=== PATIENT | female | born 1955 | race Caucasian/White ===

== ENCOUNTER 2023-06-08 18:42 | Inpatient (IN) | payer OTHER, MEDICARE, SELFPAY ==
--- NOTE | ~2023-06-08 | CT_ITS ---
EXAMINATION: CT ABDOMEN AND PELVIS WITHOUT CONTRAST CLINICAL INFORMATION: Right flank pain COMPARISON: None available. TECHNIQUE: Multidetector volumetric imaging was performed from the superior aspect of the liver through the pubic symphysis. Sagittal and coronal reformatted images were obtained on the technologist's workstation. This CT examination was performed using dose optimization techniques as appropriate, variously including the following: *Automated exposure control *Adjustment of mA and/or kV according to patient size (this includes techniques or standardized protocols for targeted exams where dose is matched to indication/reason for exam; i.e. extremities or head) *Use of iterative reconstruction technique DLP: 097 mGy-cm FINDINGS: LUNG BASES: The visualized lung bases are unremarkable. LIVER, GALLBLADDER, AND BILIARY TREE: The liver is normal in size, shape, and attenuation. No focal hepatic lesion or biliary ductal dilatation is present. The gallbladder has been removed. PANCREAS: Unremarkable. SPLEEN: Unremarkable. ADRENAL GLANDS: By 2 cm low-attenuation left adrenal nodule 9 adenoma. No imaging follow-up recommended. Normal right adrenal KIDNEYS AND URETERS: Moderate right hydronephrosis and ureteral dilatation down to the bladder. There are right renal stones in the lower pole and right renal pelvis. No ureteral stone is seen. There is question of a tiny 1 to 2 mm stone in the bladder. There is right perinephric fat and periureteral fat stranding. This may represent backflow of urine secondary to obstruction. Differential would include infection. 2 mm stone in the lower pole left kidney. BLADDER: Not optimally distended. Question or bladder stone GASTROINTESTINAL TRACT: The small and large bowel are unremarkable. The appendix is unremarkable. Postsurgical changes from gastric sleeve. ABDOMINAL WALL: No significant hernia is appreciated. LYMPH NODES: Normal. VASCULAR: Atherosclerotic disease. PELVIC VISCERA: Uterus appears to have been removed. No pelvic mass. OSSEOUS STRUCTURES: Degenerative changes of the spine. CT/CT abdomen pelvis wo IV con IMPRESSION: 1. Moderate right hydronephrosis and ureteral dilatation down to the bladder. No ureteral stone seen. There is right perinephric fat and periureteral fat stranding. This may represent backflow of urine secondary to obstruction. Differential would include infection. Small bilateral renal stones. Question tiny 1 to 2 mm stone in the bladder. Fleischner guidelines were followed.
[2023-06-08 18:57] VITALS: BP 144/74; PULSE 79; O2SAT 98
[2023-06-08 19:11] VITALS: BP 162/68; PULSE 82; RESP 18; TEMP 37.3; O2SAT 95; BMI 48.9
--- NOTE | 2023-06-08 19:11 | ED_ITS ---
HPI - General Adult General Chief complaint: General Medical Stated complaint: LETHARGIC Time Seen by Provider: 06/08/23 19:11 Source: patient Mode of arrival: ambulatory Limitations: no limitations History of Present Illness HPI narrative: Patient history of kidney stones status post lithotripsy and stent placement x2 in last 2 months last stent was removed about 5 days ago noticed increased flank pain and not feeling good for last 2- 3 days with chills no fever feel weak poor appetite per patient urologist had difficulty in placing the stent because of stenosis? Related Data Home Medications Medication Instructions Recorded Confirmed amlodipine 10 mg tablet 10 mg PO DAILY 06/08/23 06/08/23 bupropion HCl 150 mg 24 hr tablet, 150 mg PO DAILY 06/08/23 extended release bupropion HCl 300 mg 24 hr tablet, 300 mg PO DAILY 06/08/23 06/08/23 extended release carvedilol 25 mg tablet 25 mg PO BID 06/08/23 06/08/23 dorzolamide 2 % eye drops 1 drp ophthalmic (eye) BID 06/08/23 06/08/23 fenofibrate nanocrystallized 145 145 mg PO DAILY 06/08/23 06/08/23 mg tablet ferrous gluconate 324 mg (38 mg 324 mg PO BID 06/08/23 iron) tablet latanoprost 0.005 % eye drops 1 drp ophthalmic (eye) BEDTIME 06/08/23 06/08/23 levothyroxine 50 mcg tablet mcg PO 06/08/23 lisinopril 40 mg tablet 40 mg PO DAILY 06/08/23 lisinopril 40 mg tablet 40 mg PO DAILY 06/08/23 06/08/23 loratadine 10 mg tablet 10 mg PO DAILY 06/08/23 metformin 500 mg tablet,extended 500 mg PO BID 06/08/23 06/08/23 release 24 hr montelukast 10 mg tablet 10 mg PO DAILY 06/08/23 montelukast 10 mg tablet 10 mg PO DAILY 06/08/23 06/08/23 ropinirole 1 mg tablet mg PO 06/08/23 rosuvastatin 40 mg tablet 40 mg PO DAILY 06/08/23 sertraline 100 mg tablet 200 mg PO DAILY 06/08/23 sertraline 100 mg tablet 200 mg PO DAILY 06/08/23 06/08/23 tirzepatide 7.5 mg/0.5 mL 7.5 mg subcut QWEEK 06/08/23 subcutaneous pen injector (Wilfredounmukesh) trazodone 100 mg tablet 250 mg PO BEDTIME 06/08/23 Allergies Allergy/AdvReac Type Severity Reaction Status Date / Time Sulfa (Sulfonamide Allergy Unknown HIVES Verified 06/08/23 20:25 Antibiotics) [SULFA (SULFONAMIDE ANTIBIOTICS)] Review of Systems 2 Review of Systems: Yes all other systems are reviewed and are negative PMFSH Past Medical History Medical History (Updated 06/09/23 @ 01:37 by Neptali Timmons MD) Hypothyroidism Type 2 diabetes mellitus Obstructive sleep apnea on CPAP Hyperlipidemia Essential hypertension Morbid obesity Surgical History (Updated 06/09/23 @ 00:12 by Lanie Dupont MD) Hx of cholecystectomy Social History Social History Smoked in Last 30 Days: No Use of substances other than those prescribed or required for medical reasons: No Advance Directives: No Advance Directives Information Provided: No Physical Exam ED Vital Signs: Vital Signs - 24 hr 06/08/23 19:11 06/08/23 22:13 Temperature 99.1 F 100.3 F Pulse Rate 82 78 Respiratory Rate 18 16 Blood Pressure 162/68 H 161/61 H Pulse Oximetry 95 96 Oxygen Delivery Method Room Air Room Air BMI result Body Mass Index 48.9 Appearance: Alert. Oriented X3. No acute distress. Eyes: No pallor or icterus ENT: Pharynx normal. Oral Mucosa moist Neck: Normal inspection. Neck supple. CVS: Normal heart rate and rhythm. Pulses normal. Respiratory: No respiratory distress. Equal air entry bilateral, no wheezing/rales/rhonchi Abdomen: Soft and nontender. Bowel sounds are present, no mass palpable, right CVA tenderness++ Skin: Skin warm and dry. Normal skin color. Normal skin turgor. Extremities: No lower extremity edema. No calf tenderness Neuro: Oriented X 3. No motor deficit. Medications Administered Generic Name Dose Route Start Last Admin Trade Name Freq PRN Reason Stop Dose Admin Sodium Chloride 1,000 mls @ 100 mls/hr 06/08/23 22:45 06/08/23 23:43 Ns IVCONT 100 mls/hr .Q10H ANTON Administration Sodium Chloride 3 ml 06/09/23 00:00 06/09/23 01:15 0.9 % Sodium Chloride Flush 3 Ml Syringe IVFLUSH Not Given QSHIFT ANTON Discontinued Medications Generic Name Dose Route Start Last Admin Trade Name Freq PRN Reason Stop Dose Admin Sodium Chloride 1,000 mls @ 999 mls/hr 06/08/23 19:31 06/08/23 22:04 Ns IV 06/08/23 20:31 Infused .Q1H1M ONE Infusion Ceftriaxone Sodium 1 gm/ 50 mls @ 100 mls/hr 06/08/23 19:31 06/08/23 21:36 Sodium Chloride IV 06/08/23 20:00 Infused ONCE ONE Infusion Morphine Sulfate 4 mg 06/08/23 21:16 06/08/23 21:42 Morphine Sulfate 4 Mg/Ml Cartridge IVPUSH 06/08/23 21:17 4 mg ONCE ONE Administration Protocol Ondansetron HCl 4 mg 06/08/23 21:16 06/08/23 21:37 Ondansetron Hcl 4 Mg/2 Ml Vial IVPUSH 06/08/23 21:17 4 mg ONCE ONE Administration Medical Decision Making Medical Decision Making [facility] Narrative: Patient with moderate right hydronephrosis and ureteral dilatation without any stone likely from stenosis per patient urologist had difficult time in placing the stent . Will admit patient for IV antibiotics and Urology consult for possible stent placement Differential Diagnosis Differential Diagnoses: The differential diagnosis associated with the presentation includes Kidney stones/pyelonephritis/ureteric stenosis Admission/Observation Consideration of admission/observation: Escalation of care including admission/observation considered Consult Healthcare Provider Management of the patient was discussed with: Hospitalist Lab Data [facility] Lab Attestation statement: I reviewed the patient's lab results. 06/08/23 19:59 06/08/23 19:59 Labs: Lab Results 06/08/23 06/08/23 Range/Units 19:14 19:59 WBC 8.5 (4.8-10.8) X10*3/uL RBC 4.20 (4.20-5.50) X10*6/uL Hgb 11.1 L (12.0-16.0) g/dl Hct 33.9 L (37.0-47.0) % MCV 80.7 (80.0-98.0) fL MCH 26.4 L (27.0-33.0) pg MCHC 32.7 (31.0-35.0) g/dl RDW 13.7 (11.0-16.0) % Plt Count 255 (160-400) X10*3/uL MPV 10.3 (9.4-12.3) fL Immature Gran % (Auto) 0.9 H (0.0-0.4) % Neut % (Auto) 81.0 H (45-73) % Lymph % (Auto) 7.3 L (20-40) % [place] % (Auto) 9.6 (2-11) % Eos % (Auto) 0.7 (0-4) % Baso % (Auto) 0.5 (0-2) % Lymph # (Auto) 0.6 L (1.2-4.9) X10*3/uL [place] # (Auto) 0.8 (0.1-1.2) X10*3/uL Eos # (Auto) 0.1 (0.0-0.4) X10*3/uL Baso # (Auto) 0.0 (0.0-0.2) X10*3/uL Abs Immat Gran (auto) 0.08 H (0.00-0.03) X10*3/uL Absolute Neuts (auto) 6.9 (2.0-8.3) x10*3/uL Absolute Nucleated RBC 0.000 (0.0-0.012) X10*3/uL Nucleated RBC % (auto) 0.0 (0.0-0.2) /100WBC Sodium 138 (135-145) mmol/L Potassium 3.5 (3.3-5.1) mmol/L Chloride 104 (96-108) mmol/L Carbon Dioxide 24 (22-29) mmol/L Anion Gap 14 (12-20) BUN 24 H (9-16) mg/dL Creatinine 0.93 (0.5-1.4) mg/dL Estim Creat Clear Calc 77.2 Estimated GFR 60 Random Glucose 99 (60-115) mg/dL Lactic Acid 0.7 (0.5-2.0) mmol/L Calcium 9.5 (8.4-10.2) mg/dL Total Bilirubin 0.5 (0.0-1.0) mg/dL AST 34 H (5-31) U/L ALT 39 H (0-31) U/L Alkaline Phosphatase 66 (39-117) U/L Total Protein 7.3 (6.5-8.0) g/dL Albumin 3.4 L (3.5-5.0) g/dL Urine Color Yellow Urine Appearance Turbid Urine pH 6.0 (5.0-9.0) Ur Specific [place] 1.015 (1.005-1.025) Urine Protein 300 (3+) H (Neg-Trace) mg/dL Urine Glucose (UA) Negative (Negative) mg/dL Urine Ketones Negative (Negative) mg/dL Urine Blood Large (3+) H (Negative) Urine Nitrite Negative (Negative) Ur Leukocyte Esterase Large (3+) H (Negative) Urine RBC 11-20 H (0-2) /HPF Urine WBC >50 H (0-5) /HPF Ur Squamous Epith Cells 3-5 (0-2) /HPF Urine Bacteria 4+ (None Seen) Hyaline Casts 0-2 (0-2) /LPF Independent Interpretation I performed an independent interpretation of an: CT Scan Radiology Impression Discussion of test interpretation with radiology: I have reviewed the radiologist's reading. Radiologist Impression: CT/CT abdomen pelvis wo IV con IMPRESSION: 1. Moderate right hydronephrosis and ureteral dilatation down to the bladder. No ureteral stone seen. There is right perinephric fat and periureteral fat stranding. This may represent backflow of urine secondary to obstruction. Differential would include infection. Small bilateral renal stones. Question tiny 1 to 2 mm stone in the bladder. Fleischner guidelines were followed. Discharge Plan Discharge Clinical Impression: Pyelonephritis, Hydronephrosis, right Patient Disposition: Admitted As Inpatient
[2023-06-08 19:21] LABS: Appearance Urine Turbid; Color Urine Yellow; Glucose Urine UA Negative (Negative); Leukocyte Esterase Urine Large (3+) (Negative); Nitrite Urine Negative (Negative); Specific Gravity - Urine 1.015 (1.005-1.025); UMIC TRIGGER UACC YES; Urine Blood Large (3+) (Negative); Urine Ketones Negative (Negative); Urine Protein 300 (3+) mg/dL (Neg-Trace)
[2023-06-08 19:29] LABS: Bacteria Urine 4+ (None Seen); Hyaline Casts Urine 0-2 /LPF (0-2); UACC Culture Trigger YES; WBC Urine >50 /HPF (0-5)
[2023-06-08 20:05] LABS: MANUAL DIFF FLAG NO
[2023-06-08 20:16] LABS: Lactic Acid 0.7 mmol/L (0.5-2.0)
[2023-06-08 20:21] LABS: Alanine Aminotransferase 39 U/L (0-31); Albumin Level 3.4 g/dL (3.5-5.0); Alkaline Phosphatase 66 U/L (39-117); Anion Gap 14 (12-20); Aspartate Amino Transferase 34 U/L (5-31); Bilirubin Total 0.5 mg/dL (0.0-1.0); Blood Urea Nitrogen 24 mg/dL (9-16); Calcium 9.5 mg/dL (8.4-10.2); Carbon Dioxide 24 mmol/L (22-29); Chloride 104 mmol/L (96-108); Creatinine Clr Calc Pharmacy 77.2; Estimated Glomerular Filt Rate 60; Glucose Random 99 mg/dL (60-115); Potassium 3.5 mmol/L (3.3-5.1); Sodium 138 mmol/L (135-145); Total Protein 7.3 g/dL (6.5-8.0)
[2023-06-08 20:23] LABS: Basophils Percent Auto 0.5 % (0-2); Eosinophils Absolute Auto 0.1 X10*3/uL (0.0-0.4); Eosinophils Percent Auto 0.7 % (0-4); Hematocrit 33.9 % (37.0-47.0); Hemoglobin 11.1 g/dl (12.0-16.0); Imm Gran Abs Auto 0.08 X10*3/uL (0.00-0.03); Imm Gran Pct Auto 0.9 % (0.0-0.4); Lymphocytes Absolute Auto 0.6 X10*3/uL (1.2-4.9); Lymphocytes Percent Auto 7.3 % (20-40); Mean Corpuscular HGB Conc 32.7 g/dl (31.0-35.0); Mean Corpuscular Hemoglobin 26.4 pg (27.0-33.0); Mean Corpuscular Volume 80.7 fL (80.0-98.0); Mean Platelet Volume 10.3 fL (9.4-12.3); Monocytes Absolute Auto 0.8 X10*3/uL (0.1-1.2); Monocytes Percent Auto 9.6 % (2-11); Neutrophils Absolute Auto 6.9 x10*3/uL (2.0-8.3); Platelet Count 255 X10*3/uL (160-400); Red Cell Distribution Width 13.7 % (11.0-16.0); White Blood Count 8.5 X10*3/uL (4.8-10.8)
[2023-06-08] MEDS: 0.9 % Sodium Chloride 1,000 ML 999 ML IV (20:26)
[2023-06-08] MEDS: cefTRIAXone sodium 1 GM in 0.9 % Sodium Chloride 50 ML IV (20:28)
[2023-06-08] MEDS: ondansetron HCL 4 MG/2 ML VIAL IVPUSH (21:37)
[2023-06-08] MEDS: Morphine Sulfate 4 MG/ML CARTRIDGE IVPUSH (21:42)
[2023-06-08 22:13] VITALS: BP 161/61; PULSE 78; RESP 16; TEMP 37.9; O2SAT 96
--- NOTE | 2023-06-08 23:31 | P.HPHOSP_ITS ---
History of Present Illness Date of Service: 06/08/23 Attending physician on admission: Lanie Dupont Chief Complaint: Generalized weakness Cara Chowdary is a very pleasant 68 years old woman with past medical history significant for nephrolithiasis, essential hypertension, hyperlipidemia and hypothyroidism presents to the emergency department complaining of generalized weakness, right flank pain, fevers and chills. Pain has an intensity of 8/10 and is not radiating. She also reports some pain with urination and pink urine occasionally. who was at bedside mentioned that patient has been confused at time and not eating well. Over the last 2 months the patient has been treated for nephrolithiasis with lithotripsy and stent placement at [facility]. Last stent was removed about 5 days ago. She did not report any cardiopulmonary symptoms. In the ED, she was found to have stable vital signs. Temperature is 100.3 degrees. Blood workup did not show leukocytosis or lactic acidosis. LFTs are slightly elevated. There are no significant electrolyte imbalances. Urinalysis consistent with urinary tract infection and microscopic hematuria. Abdominal pelvis CT scan showed moderate right hydronephrosis with ureteral dilation down to the bladder without ureteral stone seen. There is also right perinephritic fat and periureteral fat stranding. ED tx: Zofran 4 mg IV, morphine 4 mg IV, ceftriaxone 1 g IV. Review of Systems 2 Review of Systems: All 12 systems were reviewed and normal except as noted in HPI. [facility] Medical History (Updated 06/09/23 @ 00:12 by Lanie Dupont MD) Hypothyroidism Type 2 diabetes mellitus Obstructive sleep apnea on CPAP Hyperlipidemia Essential hypertension Morbid obesity Surgical History (Updated 06/09/23 @ 00:12 by Lanie Dupont MD) Hx of cholecystectomy Social History Smoked in Last 30 Days: No Use of substances other than those prescribed or required for medical reasons: No Advance Directives: No Advance Directives Information Provided: No Meds Allergies Allergy/AdvReac Type Severity Reaction Status Date / Time Sulfa (Sulfonamide Allergy Unknown HIVES Verified 06/08/23 20:25 Antibiotics) [SULFA (SULFONAMIDE ANTIBIOTICS)] Active Medications: Current Medications Acetaminophen (Acetaminophen 325 Mg Tablet) 975 mg PO Q6H PRN PRN Reason: pain and fever Heparin Sodium (Porcine) (Heparin Sodium,Porcine 5,000 Unit/Ml Vial) 5,000 unit SUBCUT Q8H ANTON Sodium Chloride (Ns) 1,000 mls @ 100 mls/hr IVCONT .Q10H [facility] Ceftriaxone Sodium 1 gm/ (Sodium Chloride) 50 mls @ 100 mls/hr IV DAILY [facility] Sodium Chloride (0.9 % Sodium Chloride Flush 3 Ml Syringe) 3 ml IVFLUSH QSHIFT [facility] Home Medications Medication Instructions Recorded Confirmed Last Taken Type amlodipine 10 mg tablet 10 mg PO DAILY 06/08/23 06/08/23 Unknown History bupropion HCl 150 mg 24 hr tablet, 150 mg PO DAILY 06/08/23 Unknown History extended release bupropion HCl 300 mg 24 hr tablet, 300 mg PO DAILY 06/08/23 06/08/23 Unknown History extended release carvedilol 25 mg tablet 25 mg PO BID 06/08/23 06/08/23 Unknown History dorzolamide 2 % eye drops 1 drp ophthalmic (eye) BID 06/08/23 06/08/23 Unknown History fenofibrate nanocrystallized 145 145 mg PO DAILY 06/08/23 06/08/23 Unknown History mg tablet ferrous gluconate 324 mg (38 mg 324 mg PO BID 06/08/23 Unknown History iron) tablet latanoprost 0.005 % eye drops 1 drp ophthalmic (eye) BEDTIME 06/08/23 06/08/23 Unknown History levothyroxine 50 mcg tablet mcg PO 06/08/23 Unknown History lisinopril 40 mg tablet 40 mg PO DAILY 06/08/23 Unknown History lisinopril 40 mg tablet 40 mg PO DAILY 06/08/23 06/08/23 Unknown History loratadine 10 mg tablet 10 mg PO DAILY 06/08/23 Unknown History metformin 500 mg tablet,extended 500 mg PO BID 06/08/23 06/08/23 Unknown History release 24 hr montelukast 10 mg tablet 10 mg PO DAILY 06/08/23 Unknown History montelukast 10 mg tablet 10 mg PO DAILY 06/08/23 06/08/23 Unknown History ropinirole 1 mg tablet mg PO 06/08/23 Unknown History rosuvastatin 40 mg tablet 40 mg PO DAILY 06/08/23 Unknown History sertraline 100 mg tablet 200 mg PO DAILY 06/08/23 Unknown History sertraline 100 mg tablet 200 mg PO DAILY 06/08/23 06/08/23 Unknown History tirzepatide 7.5 mg/0.5 mL 7.5 mg subcut QWEEK 06/08/23 Unknown History subcutaneous pen injector (Nadya) trazodone 100 mg tablet 250 mg PO BEDTIME 06/08/23 Unknown History Physical Exam 2 Vital Signs and Narrative: Vital Signs: Last Vital Signs Temp 100.3 F 06/08/23 22:13 Pulse 78 06/08/23 22:13 Resp 16 06/08/23 22:13 BP 161/61 H 06/08/23 22:13 Pulse Ox 96 06/08/23 22:13 O2 Del Method Room Air 06/08/23 22:13 BMI result Body Mass Index 48.9 Constitutional - Awake and Alert. Acutely ill. Looks fatigued. Febrile. Obese. HEENT - pupils equally round. No scleral icterus. Very dry oral mucosa. Heart - S1S2, RRR. Lungs- Normal lung expansion, Normal respiratory effort, No respiratory distress, CTA bilaterally Gastrointestinal - ND; +BS; right flank tenderness. No rebound or guarding - (+) CVA tenderness Extremities - no calf tenderness bilaterally, no swelling Musculoskeletal - Normal inspection, normal ROM Skin - Warm/Dry Neurological - Alert & oriented x3. No focal weakness grossly noted. Normal speech. Normal behavior. Psychological - Appropriate affect Results Labs 06/08/23 19:59 06/08/23 19:59 Labs: Laboratory Results - last 24 hr 06/08/23 06/08/23 19:14 19:59 MCV 80.7 MCH 26.4 L MCHC 32.7 RDW 13.7 Plt Count 255 MPV 10.3 Immature Gran % (Auto) 0.9 H Neut % (Auto) 81.0 H Lymph % (Auto) 7.3 L [place] % (Auto) 9.6 Eos % (Auto) 0.7 Baso % (Auto) 0.5 Lymph # (Auto) 0.6 L [place] # (Auto) 0.8 Eos # (Auto) 0.1 Baso # (Auto) 0.0 Abs Immat Gran (auto) 0.08 H Absolute Neuts (auto) 6.9 Absolute Nucleated RBC 0.000 Nucleated RBC % (auto) 0.0 Anion Gap 14 Estim Creat Clear Calc 77.2 Estimated GFR 60 Random Glucose 99 Lactic Acid 0.7 Calcium 9.5 Total Bilirubin 0.5 AST 34 H ALT 39 H Alkaline Phosphatase 66 Total Protein 7.3 Albumin 3.4 L Urine Color Yellow Urine Appearance Turbid Urine pH 6.0 Ur Specific [place] 1.015 Urine Protein 300 (3+) H Urine Glucose (UA) Negative Urine Ketones Negative Urine Blood Large (3+) H Urine Nitrite Negative Ur Leukocyte Esterase Large (3+) H Urine RBC 11-20 H Urine WBC >50 H Ur Squamous Epith Cells 3-5 Urine Bacteria 4+ Hyaline Casts 0-2 Imaging Radiologist's Impressions: Impressions Abdomen/Pelvis CT 06/08/23 20:15 IMPRESSION: 1. Moderate right hydronephrosis and ureteral dilatation down to the bladder. No ureteral stone seen. There is right perinephric fat and periureteral fat stranding. This may represent backflow of urine secondary to obstruction. Differential would include infection. Small bilateral renal stones. Question tiny 1 to 2 mm stone in the bladder. Fleischner guidelines were followed. Assessment and Plan (1) Pyelonephritis: Status: Acute (2) Hydronephrosis, right: Status: Acute (3) Elevated liver transaminase level: Status: Acute Plan Cara Chowdary is a very pleasant 68 years old woman with past medical history significant for nephrolithiasis admitted with: * Right pyelonephritis associated with moderate hydronephrosis. s/p recent right ureteral stent removal. Admit to hospitalist service. Start IV fluids. Continue empiric IV antibiotic therapy with ceftriaxone. Blood and urine culture obtained -will follow results. Urology consult. * Type 2 diabetes mellitus. Hold metformin. Blood glucose monitoring before meals at bedtime. Blood glucose control with insulin sliding scale for now. * Essential hypertension. Continue amlodipine, carvedilol and lisinopril. * Hypothyroidism. Continue levothyroxine. * Hyperlipidemia. Continue statin. * Obesity. BMI 48.9 kg/m2. Weight loss. * Obstructive sleep apnea. Nocturnal CPAP. * Mildly elevated transaminase ? Statin-induced. Continue to monitor for now. DVT prophylaxis: Heparin subcut Code status: Full Patient will need hospitalization for at least 2 midnight for right pyelonephritis w/ right hydronephrosis treatment with IV fluids and IV antibiotics as well as evaluation by urology service. Quality Stroke Does the patient have a stroke diagnosis?: No VTE Prior VTE?: No VTE Risk Level:: Medical - moderate - high VTE Device Contraindication: N/A - Device Ordered VTE Drug Contraindication: N/A - Med Ordered
[2023-06-08] MEDS: 0.9 % Sodium Chloride 1,000 ML 100 ML IVCONT (23:43)
--- NOTE | 2023-06-08 23:45 | PC.NURSE ---
assumed care of pt at 2315. PT alert and oriented and tear ful. PT sts other pt screaming is distressing to her. recommended pt to utlize TV to help in drowning out the sound. PT denies any pain at this time. Medications administered as per JUN. Plan of care ongoing.
[2023-06-09] VITALS (7 sets, daily range): BP systolic 121–182; BP diastolic 44–74; PULSE 58–71; RESP 16–18; TEMP 36.6–37.2; O2SAT 92–98
--- NOTE | 2023-06-09 00:05 | PC.RT ---
Pt refused cpap
--- NOTE | 2023-06-09 05:58 | PC.NURSE ---
PT IV line positional and causing pump to continuously go off. Place new IV line in left forearm.
[2023-06-09] MEDS: Levothyroxine Sodium 50 MCG TABLET PO (06:02)
[2023-06-09] MEDS: Acetaminophen 325 MG TABLET 975 MG PO ×2 (06:03→23:04)
[2023-06-09 06:09] LABS: MANUAL DIFF FLAG NO
[2023-06-09 06:16] LABS: Basophils Percent Auto 0.5 % (0-2); Eosinophils Absolute Auto 0.1 X10*3/uL (0.0-0.4); Eosinophils Percent Auto 1.1 % (0-4); Hematocrit 35.7 % (37.0-47.0); Hemoglobin 11.4 g/dl (12.0-16.0); Imm Gran Abs Auto 0.14 X10*3/uL (0.00-0.03); Imm Gran Pct Auto 1.6 % (0.0-0.4); Lymphocytes Percent Auto 11.1 % (20-40); Mean Corpuscular HGB Conc 31.9 g/dl (31.0-35.0); Mean Corpuscular Hemoglobin 26.3 pg (27.0-33.0); Mean Corpuscular Volume 82.4 fL (80.0-98.0); Mean Platelet Volume 10.5 fL (9.4-12.3); Monocytes Percent Auto 11.1 % (2-11); Neutrophils Absolute Auto 6.4 x10*3/uL (2.0-8.3); Neutrophils Percent Auto 74.6 % (45-73); Platelet Count 255 X10*3/uL (160-400); Red Blood Count 4.33 X10*6/uL (4.20-5.50); Red Cell Distribution Width 13.7 % (11.0-16.0); White Blood Count 8.6 X10*3/uL (4.8-10.8)
[2023-06-09 06:28] LABS: Alanine Aminotransferase 42 U/L (0-31); Albumin Level 3.3 g/dL (3.5-5.0); Alkaline Phosphatase 72 U/L (39-117); Anion Gap 16 (12-20); Aspartate Amino Transferase 39 U/L (5-31); Bilirubin Total 0.3 mg/dL (0.0-1.0); Blood Urea Nitrogen 22 mg/dL (9-16); Calcium 9.4 mg/dL (8.4-10.2); Carbon Dioxide 23 mmol/L (22-29); Chloride 106 mmol/L (96-108); Creatinine Clr Calc Pharmacy 80.7; Estimated Glomerular Filt Rate > 60; Glucose Random 99 mg/dL (60-115); Magnesium 1.8 mg/dL (1.6-2.6); Potassium 3.9 mmol/L (3.3-5.1); Sodium 141 mmol/L (135-145); Total Protein 7.3 g/dL (6.5-8.0)
[2023-06-09 07:04] LABS: Glucose, Whole Blood 95 mg/dL (60-115)
[2023-06-09] MEDS: Sertraline HCL 100 MG TABLET 200 MG PO (08:10)
[2023-06-09] MEDS: buPROPion HCl XL 300 MG TAB.ER.24H PO (08:10)
[2023-06-09] MEDS: amLODIPine Besylate 10 MG TABLET PO (08:10)
[2023-06-09] MEDS: Heparin Sodium,Porcine 5,000 UNIT/ML VIAL 5000 UNIT SUBCUT (08:11)
[2023-06-09] MEDS: cefTRIAXone sodium 1 GM in 0.9 % Sodium Chloride 50 ML IV (08:11)
[2023-06-09] MEDS: carvediloL 25 MG TABLET PO ×2 (08:15→22:54)
[2023-06-09] MEDS: 0.9 % Sodium Chloride 1,000 ML 100 ML IVCONT ×2 (08:17→23:04)
[2023-06-09] MEDS: 0.9 % Sodium Chloride Flush 3 ML SYRINGE IVFLUSH ×2 (08:22→22:53)
--- NOTE | 2023-06-09 08:49 | MHC.CM.PN ---
CM met with Patient in the ED, at bedside. Patient lives in a house with her Partner/HCP/Susan and she uses a walker to assist with mobility. Home/self care is the goal and CM has initiated and will follow for dc planning. PCP is Dr. Marine Saucedo.
[2023-06-09] MEDS: Fenofibrate 160 MG TABLET PO (09:06)
--- NOTE | 2023-06-09 10:20 | PC.NURSE ---
alert and oriented, respirations even and unlabored. medicated per the MAR, able to stand and pivot self independently to commode. hospital bed provided for patient's comfort. IV fluids continue to infuse, call martinez remains within reach.
--- NOTE | 2023-06-09 10:52 | PHA.MEDREC ---
Pharmacy Consult ? Medication Reconciliation Pharmacy has completed the medication reconciliation. Pharmacy has completed med rec using claim history. Pt is poor historian and unable to provide any information about her home meds other than she takes 2 eye drops and lutein.
[2023-06-09 13:08] LABS: Glucose, Whole Blood 86 mg/dL (60-115)
[2023-06-09] MEDS: Atorvastatin Calcium 80 MG TABLET PO (15:19)
[2023-06-09] MEDS: rOPINIRole HCL 1 MG TABLET PO (15:19)
[2023-06-09 18:15] LABS: Glucose, Whole Blood 89 mg/dL (60-115)
[2023-06-09 21:45] LABS: Glucose, Whole Blood 94 mg/dL (60-115)
[2023-06-09] MEDS: rOPINIRole HCL 2 MG TABLET PO (22:54)
[2023-06-09] MEDS: traZODone HCL 50 MG TABLET 250 MG PO (22:54)
[2023-06-09] MEDS: Montelukast Sodium 10 MG TABLET PO (22:55)
[2023-06-09] MEDS: Gabapentin 300 MG CAPSULE 900 MG PO (22:55)
[2023-06-10] MEDS: Heparin Sodium,Porcine 5,000 UNIT/ML VIAL 5000 UNIT SUBCUT ×3 (02:10→16:04)
[2023-06-10 03:14] VITALS: BP 151/67; PULSE 55; RESP 18; TEMP 36; O2SAT 92
[2023-06-10] MEDS: Levothyroxine Sodium 50 MCG TABLET PO (06:08)
--- NOTE | 2023-06-10 06:12 | PC.NURSE ---
Addendum entered by Angeline Kraus RN 06/10/23 07:05: Patient refused HS cpap, stated it interferes with getting up to the commode urgently for incontinence. Spo2 maintained on RA. Patient requiring education on safety measures, refused in-room camera and full skin assessment; pt very modest. Bed alarm on and other high falls prevention meaures in place. Original Note: Assumed care of patient at 19:00. Patient refusing previously ordered IV fluids in the evening; later agreeable and fluids re-started, still infusing at this time 06:00 hour. Patient NPO since midnight per MD order.
[2023-06-10 07:34] VITALS: BP 133/96; PULSE 56; RESP 20; TEMP 36.2; O2SAT 94
[2023-06-10 07:52] LABS: Glucose, Whole Blood 75 mg/dL (60-115)
--- NOTE | 2023-06-10 08:06 | HO.PM.IMPN ---
Subjective Subjective Date of Service: 06/09/23 Interval History: pyelonephritis Review of Systems has right flank pain no fever or chills Physical Exam Vital Signs: Vital Signs: Last Vital Signs BMI result Body Mass Index vitals 06/09 reviewed seems fine Appearance: Alert.? Oriented X3.? cvs: rrr, [id number] . res: clear to auscultation ,no rhonchii or wheezing abd: no rebound or guarding ,right flank pain, bs present. ext pulses present , no cyanosis . neuro: axo3 , nonfocal. Objective Data Active Medications Acetaminophen (Acetaminophen 325 Mg Tablet) 975 mg PO Q6H PRN PRN Reason: pain and fever Last Admin: 06/09/23 23:04 Dose: 975 mg Documented By: ARA Amlodipine Besylate (Amlodipine Besylate 10 Mg Tablet) 10 mg PO DAILY [facility]; Protocol Last Admin: 06/09/23 08:10 Dose: 10 mg Documented By: ELPIDIO Atorvastatin Calcium (Atorvastatin Calcium 80 Mg Tablet) 80 mg PO DAILY [facility] Last Admin: 06/09/23 15:19 Dose: 80 mg Documented By: ELPIDIO Bupropion HCl (Bupropion Hcl Xl 300 Mg Tab.Er.24h) 300 mg PO DAILY [facility] Last Admin: 06/09/23 08:10 Dose: 300 mg Documented By: ELPIDIO Bupropion HCl (Bupropion Hcl Xl 150 Mg Tab.Er.24h) 150 mg PO DAILY [facility] Carvedilol (Carvedilol 25 Mg Tablet) 25 mg PO BID [facility]; Protocol Last Admin: 06/09/23 22:54 Dose: 25 mg Documented By: ARA Dextrose (Dextrose 50 % 25 Gm/50 Ml Syringe) 25 gm IVPUSH Q15M PRN; Protocol PRN Reason: per Hypoglycemia Standing Ord. Dorzolamide HCl (Dorzolamide Hcl 2 % Ophth Danielle 10 Ml Drpbtl) 1 drop EYE-BOTH BID [facility] Last Admin: 06/09/23 22:59 Dose: Not Given Documented By: ARA Non-Admin Reason: med not available Fenofibrate (Fenofibrate 160 Mg Tablet) 160 mg PO DAILY [facility] Last Admin: 06/09/23 09:06 Dose: 160 mg Documented By: ELPIDIO Ferrous Sulfate (Ferrous Sulfate 324 Mg Tablet.Dr) 324 mg PO DAILY [facility] Gabapentin (Gabapentin 300 Mg Capsule) 900 mg PO BEDTIME [facility] Last Admin: 06/09/23 22:55 Dose: 900 mg Documented By: ARA Glucose (Glucose Gel 15 Gm Gel..Gram.) 15 gm PO Q15M PRN; Protocol PRN Reason: per Hypoglycemia Standing Ord. Heparin Sodium (Porcine) (Heparin Sodium,Porcine 5,000 Unit/Ml Vial) 5,000 unit SUBCUT Q8H [facility] Last Admin: 06/10/23 02:10 Dose: 5,000 unit Documented By: ARA Sodium Chloride (Ns) 1,000 mls @ 100 mls/hr IVCONT .Q10H [facility] Last Admin: 06/09/23 23:04 Dose: 100 mls/hr Documented By: ARA Ceftriaxone Sodium 1 gm/ (Sodium Chloride) 50 mls @ 100 mls/hr IV DAILY [facility] Last Infusion: 06/09/23 09:05 Dose: Infused Documented By: ELPIDIO Insulin Human Lispro (Insulin Lispro 100 Unit/Ml 3 Ml Vial) 0 unit SUBCUT QIDACHS [facility]; Protocol Last Admin: 06/10/23 07:50 Dose: Not Given Documented By: OBINNA Non-Admin Reason: No Insulin Coverage Latanoprost (Latanoprost 0.005 % Ophth Danielle 2.5 Ml Drops) 1 drop EYE-BOTH BEDTIME [facility] Last Admin: 06/09/23 22:59 Dose: Not Given Documented By: ARA Non-Admin Reason: med not available Levothyroxine Sodium (Levothyroxine Sodium 50 Mcg Tablet) 50 mcg PO DAILY@0600 [facility] Last Admin: 06/10/23 06:08 Dose: 50 mcg Documented By: ARA Loratadine (Loratadine 10 Mg Tablet) 10 mg PO DAILY [facility] Montelukast Sodium (Montelukast Sodium 10 Mg Tablet) 10 mg PO BEDTIME [facility] Last Admin: 06/09/23 22:55 Dose: 10 mg Documented By: ARA Non-Formulary Medication (Lutein) 10 mg PO DAILY [facility] Ropinirole HCl (Ropinirole Hcl 1 Mg Tablet) 1 mg PO BID@0900,1500 [facility] Last Admin: 06/09/23 15:19 Dose: 1 mg Documented By: ELPIDIO Ropinirole HCl (Ropinirole Hcl 2 Mg Tablet) 2 mg PO BEDTIME [facility] Last Admin: 06/09/23 22:54 Dose: 2 mg Documented By: AAR Sertraline HCl (Sertraline Hcl 100 Mg Tablet) 200 mg PO DAILY [facility] Last Admin: 06/09/23 08:10 Dose: 200 mg Documented By: ELPIDIO Sodium Chloride (0.9 % Sodium Chloride Flush 3 Ml Syringe) 3 ml IVFLUSH QSHIFT [facility] Last Admin: 06/09/23 22:53 Dose: 3 ml Documented By: ARA Trazodone HCl (Trazodone Hcl 50 Mg Tablet) 250 mg PO BEDTIME [facility] Last Admin: 06/09/23 22:54 Dose: 250 mg Documented By: ARA Labs 06/09/23 05:48 06/09/23 05:48 Labs: Laboratory Results - last 24 hr 06/09/23 06/09/23 06/09/23 12:58 18:10 20:34 POC Glucose 86 89 94 06/10/23 07:37 POC Glucose 75 Microbiology Microbiology Results: Microbiology 06/08/23 20:04 Blood Culture - Preliminary Blood - Venous No growth after 24 hours. 06/08/23 19:59 Blood Culture - Preliminary Blood - Venous No growth after 24 hours. 06/08/23 Unknown Urine Culture - Preliminary Urine clean catch - Urine hunter top Culture in progress. Assessment and Plan (1) Hydronephrosis, right: Status: Acute (2) Pyelonephritis: Status: Acute Plan 68 years old woman with past medical history significant for nephrolithiasis admitted with: Right pyelonephritis associated with moderate hydronephrosis. s/p recent right ureteral stent removal. continue IV fluids, IV antibiotic therapy with ceftriaxone. Blood and urine culture obtained -will follow results. Urology consult-possible procedure in 06/10 ,keep npo midnight. Type 2 diabetes mellitus. Hold metformin. Blood glucose monitoring before meals at bedtime. Blood glucose control with insulin sliding scale for now. Essential hypertension. Continue amlodipine, carvedilol and lisinopril. Hypothyroidism. Continue levothyroxine. Hyperlipidemia. Continue statin. morbid Obesity. encouraged to lose weight,cut down calories. Obstructive sleep apnea. Nocturnal CPAP. Mildly elevated transaminase ? Statin-induced. Continue to monitor for now. DVT prophylaxis: Heparin s/c. ongoing hospitisation need :Right pyelonephritis associated with moderate hydronephrosis-need iv hydration,antibiotics and possible urological procedure for hydronephrosis and possible uteral stone ,expert consultation. Quality Stroke Does the patient have a stroke diagnosis?: No VTE Prior VTE?: No VTE Risk Level:: Medical - moderate - high VTE Device Contraindication: N/A - Device Ordered VTE Drug Contraindication: N/A - Med Ordered
[2023-06-10] MEDS: Ferrous Sulfate 324 MG TABLET.DR PO (08:39)
[2023-06-10] MEDS: Atorvastatin Calcium 80 MG TABLET PO (08:39)
[2023-06-10] MEDS: Sertraline HCL 100 MG TABLET 200 MG PO (08:39)
[2023-06-10] MEDS: Loratadine 10 MG TABLET PO (08:39)
[2023-06-10] MEDS: carvediloL 25 MG TABLET PO ×2 (08:39→22:30)
[2023-06-10] MEDS: rOPINIRole HCL 1 MG TABLET PO ×3 (08:39→22:30)
[2023-06-10] MEDS: buPROPion HCl XL 300 MG TAB.ER.24H PO (08:39)
[2023-06-10] MEDS: buPROPion HCl XL 150 MG TAB.ER.24H PO (08:39)
[2023-06-10] MEDS: Fenofibrate 160 MG TABLET PO (08:39)
[2023-06-10] MEDS: 0.9 % Sodium Chloride 1,000 ML 100 ML IVCONT (08:40)
[2023-06-10] MEDS: cefTRIAXone sodium 1 GM in 0.9 % Sodium Chloride 50 ML IV (08:40)
[2023-06-10] MEDS: amLODIPine Besylate 10 MG TABLET PO (08:40)
[2023-06-10] MEDS: 0.9 % Sodium Chloride Flush 3 ML SYRINGE IVFLUSH ×3 (08:41→21:56)
[2023-06-10] MEDS: Acetaminophen 325 MG TABLET 975 MG PO ×2 (08:45→16:03)
[2023-06-10 09:02] LABS: MANUAL DIFF FLAG NO
[2023-06-10 09:14] LABS: Basophils Percent Auto 0.6 % (0-2); Eosinophils Absolute Auto 0.3 X10*3/uL (0.0-0.4); Eosinophils Percent Auto 3.7 % (0-4); Hematocrit 35.2 % (37.0-47.0); Hemoglobin 11.3 g/dl (12.0-16.0); Imm Gran Abs Auto 0.16 X10*3/uL (0.00-0.03); Imm Gran Pct Auto 2.4 % (0.0-0.4); Lymphocytes Absolute Auto 0.8 X10*3/uL (1.2-4.9); Lymphocytes Percent Auto 11.8 % (20-40); Mean Corpuscular HGB Conc 32.1 g/dl (31.0-35.0); Mean Corpuscular Hemoglobin 26.3 pg (27.0-33.0); Mean Corpuscular Volume 81.9 fL (80.0-98.0); Mean Platelet Volume 10.8 fL (9.4-12.3); Monocytes Absolute Auto 0.6 X10*3/uL (0.1-1.2); Monocytes Percent Auto 9.1 % (2-11); Neutrophils Absolute Auto 4.9 x10*3/uL (2.0-8.3); Neutrophils Percent Auto 72.4 % (45-73); Platelet Count 305 X10*3/uL (160-400); Red Cell Distribution Width 14.1 % (11.0-16.0); White Blood Count 6.7 X10*3/uL (4.8-10.8)
[2023-06-10 09:30] LABS: Alanine Aminotransferase 51 U/L (0-31); Albumin Level 3.2 g/dL (3.5-5.0); Alkaline Phosphatase 73 U/L (39-117); Anion Gap 16 (12-20); Aspartate Amino Transferase 48 U/L (5-31); Bilirubin Total 0.3 mg/dL (0.0-1.0); Blood Urea Nitrogen 15 mg/dL (9-16); Calcium 9.6 mg/dL (8.4-10.2); Carbon Dioxide 24 mmol/L (22-29); Chloride 110 mmol/L (96-108); Creatinine Clr Calc Pharmacy 99.8; Estimated Glomerular Filt Rate > 60; Glucose Random 106 mg/dL (60-115); Potassium 3.7 mmol/L (3.3-5.1); Sodium 146 mmol/L (135-145); Total Protein 7.2 g/dL (6.5-8.0)
[2023-06-10 09:46] LABS: Thyroid Stimulating Hormone 1.09 uIU/mL (0.32-4.0)
[2023-06-10 11:45] VITALS: BP 132/62; PULSE 52; RESP 20; TEMP 36.1; O2SAT 93
[2023-06-10 11:51] LABS: Glucose, Whole Blood 83 mg/dL (60-115)
--- NOTE | 2023-06-10 12:17 | MHC.CM.PN ---
EMR reviewed and per MD rounds, pt is not medically cleared for D/C due to management of hydronephrosis and pending urolgical stent placement today. CM will continue to follow.
--- NOTE | 2023-06-10 14:32 | MHC.CM.PN ---
EMR reviewed and per MD rounds, pt is not medically cleared for D/C due to management of hydronephrosis and pending urological stent placement today. CM will continue to follow.
--- NOTE | 2023-06-10 15:04 | HO.PM.IMPN ---
Subjective Subjective Date of Service: 06/10/23 Interval History: pyelonephritis Review of Systems right flank pain no fever or chills Physical Exam Vital Signs: Vital Signs: Last Vital Signs Temp 97.0 F 06/10/23 11:45 Pulse 52 06/10/23 11:45 Resp 20 06/10/23 11:45 BP 132/62 06/10/23 11:45 Pulse Ox 93 06/10/23 11:45 O2 Del Method Room Air 06/10/23 11:45 BMI result Body Mass Index 48.9 Appearance: Alert.? Oriented X3.? cvs: rrr, [id number] . res: clear to auscultation ,no rhonchii or wheezing abd: no rebound or guarding ,right flank pain, bs present. ext pulses present , no cyanosis . neuro: axo3 , nonfocal. Objective Data Active Medications Acetaminophen (Acetaminophen 325 Mg Tablet) 975 mg PO Q6H PRN PRN Reason: pain and fever Last Admin: 06/10/23 08:45 Dose: 975 mg Documented By: OBINNA Amlodipine Besylate (Amlodipine Besylate 10 Mg Tablet) 10 mg PO DAILY [facility]; Protocol Last Admin: 06/10/23 08:40 Dose: 10 mg Documented By: OBINNA Atorvastatin Calcium (Atorvastatin Calcium 80 Mg Tablet) 80 mg PO DAILY [facility] Last Admin: 06/10/23 08:39 Dose: 80 mg Documented By: OBINNA Bupropion HCl (Bupropion Hcl Xl 300 Mg Tab.Er.24h) 300 mg PO DAILY [facility] Last Admin: 06/10/23 08:39 Dose: 300 mg Documented By: OBINNA Bupropion HCl (Bupropion Hcl Xl 150 Mg Tab.Er.24h) 150 mg PO DAILY [facility] Last Admin: 06/10/23 08:39 Dose: 150 mg Documented By: OBINNA Carvedilol (Carvedilol 25 Mg Tablet) 25 mg PO BID [facility]; Protocol Last Admin: 06/10/23 08:39 Dose: 25 mg Documented By: OBINNA Dextrose (Dextrose 50 % 25 Gm/50 Ml Syringe) 25 gm IVPUSH Q15M PRN; Protocol PRN Reason: per Hypoglycemia Standing Ord. Dorzolamide HCl (Dorzolamide Hcl 2 % Ophth Danielle 10 Ml Drpbtl) 1 drop EYE-BOTH BID [facility] Last Admin: 06/10/23 08:41 Dose: Not Given Documented By: OBINNA Non-Admin Reason: Med Not Available Fenofibrate (Fenofibrate 160 Mg Tablet) 160 mg PO DAILY [facility] Last Admin: 06/10/23 08:39 Dose: 160 mg Documented By: OBINNA Ferrous Sulfate (Ferrous Sulfate 324 Mg Tablet.Dr) 324 mg PO DAILY [facility] Last Admin: 06/10/23 08:39 Dose: 324 mg Documented By: OBINNA Gabapentin (Gabapentin 300 Mg Capsule) 900 mg PO BEDTIME [facility] Last Admin: 06/09/23 22:55 Dose: 900 mg Documented By: ARA Glucose (Glucose Gel 15 Gm Gel..Gram.) 15 gm PO Q15M PRN; Protocol PRN Reason: per Hypoglycemia Standing Ord. Heparin Sodium (Porcine) (Heparin Sodium,Porcine 5,000 Unit/Ml Vial) 5,000 unit SUBCUT Q8H [facility] Last Admin: 06/10/23 08:39 Dose: 5,000 unit Documented By: OBINNA Sodium Chloride (Ns) 1,000 mls @ 100 mls/hr IVCONT .Q10H [facility] Last Admin: 06/10/23 15:01 Dose: Not Given Documented By: OBINNA Non-Admin Reason: Physician Held Med Ceftriaxone Sodium 1 gm/ (Sodium Chloride) 50 mls @ 100 mls/hr IV DAILY [facility] Last Infusion: 06/10/23 09:23 Dose: Infused Documented By: OBINNA Insulin Human Lispro (Insulin Lispro 100 Unit/Ml 3 Ml Vial) 0 unit SUBCUT QIDACHS [facility]; Protocol Last Admin: 06/10/23 11:49 Dose: Not Given Documented By: OBINNA Non-Admin Reason: No Insulin Coverage Latanoprost (Latanoprost 0.005 % Ophth Danielle 2.5 Ml Drops) 1 drop EYE-BOTH BEDTIME [facility] Last Admin: 06/09/23 22:59 Dose: Not Given Documented By: ARA Non-Admin Reason: med not available Levothyroxine Sodium (Levothyroxine Sodium 50 Mcg Tablet) 50 mcg PO DAILY@0600 [facility] Last Admin: 06/10/23 06:08 Dose: 50 mcg Documented By: ARA Loratadine (Loratadine 10 Mg Tablet) 10 mg PO DAILY [facility] Last Admin: 06/10/23 08:39 Dose: 10 mg Documented By: OBINNA Montelukast Sodium (Montelukast Sodium 10 Mg Tablet) 10 mg PO BEDTIME [facility] Last Admin: 06/09/23 22:55 Dose: 10 mg Documented By: ARA Non-Formulary Medication (Lutein) 10 mg PO DAILY [facility] Ropinirole HCl (Ropinirole Hcl 1 Mg Tablet) 1 mg PO BID@0900,1500 [facility] Last Admin: 06/10/23 08:39 Dose: 1 mg Documented By: OBINNA Ropinirole HCl (Ropinirole Hcl 2 Mg Tablet) 2 mg PO BEDTIME [facility] Last Admin: 06/09/23 22:54 Dose: 2 mg Documented By: ARA Sertraline HCl (Sertraline Hcl 100 Mg Tablet) 200 mg PO DAILY [facility] Last Admin: 06/10/23 08:39 Dose: 200 mg Documented By: OBINNA Sodium Chloride (0.9 % Sodium Chloride Flush 3 Ml Syringe) 3 ml IVFLUSH QSHIFT [facility] Last Admin: 06/10/23 08:41 Dose: 3 ml Documented By: OBINNA Trazodone HCl (Trazodone Hcl 50 Mg Tablet) 250 mg PO BEDTIME [facility] Last Admin: 06/09/23 22:54 Dose: 250 mg Documented By: ARA Labs 06/10/23 08:31 06/10/23 08:31 Labs: Laboratory Results - last 24 hr 06/09/23 06/09/23 06/10/23 18:10 20:34 07:37 MCV MCH MCHC RDW Plt Count MPV Immature Gran % (Auto) Neut % (Auto) Lymph % (Auto) [place] % (Auto) Eos % (Auto) Baso % (Auto) Lymph # (Auto) [place] # (Auto) Eos # (Auto) Baso # (Auto) Abs Immat Gran (auto) Absolute Neuts (auto) Absolute Nucleated RBC Nucleated RBC % (auto) Anion Gap Estim Creat Clear Calc Estimated GFR POC Glucose 89 94 75 Random Glucose Calcium Total Bilirubin AST ALT Alkaline Phosphatase Total Protein Albumin TSH 06/10/23 06/10/23 08:31 11:47 MCV 81.9 MCH 26.3 L MCHC 32.1 RDW 14.1 Plt Count 305 MPV 10.8 Immature Gran % (Auto) 2.4 H Neut % (Auto) 72.4 Lymph % (Auto) 11.8 L [place] % (Auto) 9.1 Eos % (Auto) 3.7 Baso % (Auto) 0.6 Lymph # (Auto) 0.8 L [place] # (Auto) 0.6 Eos # (Auto) 0.3 Baso # (Auto) 0.0 Abs Immat Gran (auto) 0.16 H Absolute Neuts (auto) 4.9 Absolute Nucleated RBC 0.000 Nucleated RBC % (auto) 0.0 Anion Gap 16 Estim Creat Clear Calc 99.8 Estimated GFR > 60 POC Glucose 83 Random Glucose 106 Calcium 9.6 Total Bilirubin 0.3 AST 48 H ALT 51 H Alkaline Phosphatase 73 Total Protein 7.2 Albumin 3.2 L TSH 1.09 Microbiology Microbiology Results: Microbiology 06/08/23 Unknown Urine Culture - Final Urine clean catch - Urine hunter top 06/08/23 20:04 Blood Culture - Preliminary Blood - Venous No growth after 24 hours. 06/08/23 19:59 Blood Culture - Preliminary Blood - Venous No growth after 24 hours. Assessment and Plan (1) Hydronephrosis, right: Status: Acute (2) Pyelonephritis: Status: Acute Plan 68 years old woman with past medical history significant for nephrolithiasis admitted with: Right pyelonephritis associated with moderate hydronephrosis. s/p recent right ureteral stent removal. continue IV fluids, IV antibiotic therapy with ceftriaxone. Blood and urine culture obtained -will follow results. Urology consult-possible procedure in 06/10 ,keep npo midnight. Type 2 diabetes mellitus. Hold metformin. Blood glucose monitoring before meals at bedtime. Blood glucose control with insulin sliding scale for now. Essential hypertension. Continue amlodipine, carvedilol and lisinopril. Hypothyroidism. Continue levothyroxine. Hyperlipidemia. Continue statin. morbid Obesity. encouraged to lose weight,cut down calories. Obstructive sleep apnea. Nocturnal CPAP. Mildly elevated transaminase ? Statin-induced. Continue to monitor for now. DVT prophylaxis: Heparin s/c. ongoing hospitisation need :Right pyelonephritis associated with moderate hydronephrosis-need iv hydration,antibiotics and possible urological procedure for hydronephrosis and possible uteral stone ,expert consultation. Quality Stroke Does the patient have a stroke diagnosis?: No VTE Prior VTE?: No VTE Risk Level:: Medical - moderate - high VTE Device Contraindication: N/A - Device Ordered VTE Drug Contraindication: N/A - Med Ordered
--- NOTE | 2023-06-10 15:13 | P.CDIM_ITS ---
PROVIDER RESPONSE TEXT: To clarify, the appropriate diagnosis supported by the clinical indicators: Acute QUERY TEXT: PHYSICIAN'S DOCUMENTATION REQUEST Date of Query: 06/10/2023 11:57 AM EST Patient Name: Cara Chowdary Admit Date: 06/09/2023 Dear Sal Hernandez, A review of the medical record indicates additional documentation may be needed. Please review below and update the documentation accordingly. Clinical Indicators: Per Hospitalist Progress Note 06/10/23: Right pyelonephritis associated with moderate hydronephrosis. s/p recent right ureteral stent removal . continue IV fluids, IV antibiotic therapy with ceftriaxone Clarify which of the following accurately represents the acuity of the Pyelonephritis. Possible options might include: Acute Acute on chronic Compensated Chronic stable condition Remission Other (explain) Clinically unable to determine (explain) Thank you, Yenni Maier RN Use of terms such as suspected, likely, concern for, or probable (associated with a specific diagnosi s that is being evaluated, monitored, or treated as if it exists) are acceptable and can be coded in the inpatient se tting, when documented at the time of discharge. Please use your independent medical judgment in providing your response. THIS QUERY IS PART OF THE PERMANENT MEDICAL RECORD
[2023-06-10 15:47] VITALS: BP 146/68; PULSE 57; RESP 18; TEMP 36.2; O2SAT 93
[2023-06-10 16:25] LABS: Glucose, Whole Blood 104 mg/dL (60-115)
[2023-06-10 19:16] VITALS: BP 148/61; PULSE 58; RESP 18; TEMP 36.3; O2SAT 94
--- NOTE | 2023-06-10 21:03 | PC.RT ---
Pt refusing CPAP, states she is all set
[2023-06-10 21:19] LABS: Glucose, Whole Blood 144 mg/dL (60-115)
[2023-06-10] MEDS: traZODone HCL 50 MG TABLET 250 MG PO (21:54)
[2023-06-10] MEDS: Gabapentin 300 MG CAPSULE 900 MG PO (21:54)
[2023-06-10] MEDS: Montelukast Sodium 10 MG TABLET PO (21:55)
[2023-06-10] MEDS: rOPINIRole HCL 2 MG TABLET PO (22:32)
[2023-06-10 23:39] VITALS: BP 143/63; PULSE 57; RESP 16; TEMP 36.3; O2SAT 93
[2023-06-11] MEDS: Heparin Sodium,Porcine 5,000 UNIT/ML VIAL 5000 UNIT SUBCUT ×2 (02:33→09:07)
[2023-06-11 03:45] VITALS: BP 149/67; PULSE 58; RESP 16; TEMP 36.2; O2SAT 94
[2023-06-11] MEDS: Levothyroxine Sodium 50 MCG TABLET PO (05:39)
[2023-06-11 07:26] LABS: Glucose, Whole Blood 80 mg/dL (60-115)
[2023-06-11 07:29] VITALS: BP 147/79; PULSE 57; RESP 20; TEMP 36.1; O2SAT 95
[2023-06-11] MEDS: cefTRIAXone sodium 1 GM in 0.9 % Sodium Chloride 50 ML IV (09:06)
[2023-06-11] MEDS: 0.9 % Sodium Chloride Flush 3 ML SYRINGE IVFLUSH (09:06)
[2023-06-11] MEDS: carvediloL 25 MG TABLET PO (09:07)
[2023-06-11] MEDS: Ferrous Sulfate 324 MG TABLET.DR PO (09:07)
[2023-06-11] MEDS: buPROPion HCl XL 300 MG TAB.ER.24H PO (09:07)
[2023-06-11] MEDS: Sertraline HCL 100 MG TABLET 200 MG PO (09:08)
[2023-06-11] MEDS: amLODIPine Besylate 10 MG TABLET PO (09:08)
[2023-06-11] MEDS: Atorvastatin Calcium 80 MG TABLET PO (09:08)
[2023-06-11] MEDS: buPROPion HCl XL 150 MG TAB.ER.24H PO (09:08)
[2023-06-11] MEDS: Fenofibrate 160 MG TABLET PO (09:08)
[2023-06-11] MEDS: Loratadine 10 MG TABLET PO (09:08)
[2023-06-11] MEDS: Dorzolamide HCl 2 % Ophth Sol 10 ML DRPBTL 1 DROP EYE-BOTH (09:11)
[2023-06-11 09:50] LABS: Sodium 144 mmol/L (135-145)
[2023-06-11] MEDS: Acetaminophen 325 MG TABLET 975 MG PO (10:15)
[2023-06-11 11:06] LABS: Glucose, Whole Blood 75 mg/dL (60-115)
--- NOTE | 2023-06-11 11:09 | PM.DS ---
DS: Providers Provider Date of Service: 06/11/23 Date of admission: 06/08/23 22:37 Date of discharge: 06/11/23 Primary care physician: Marine Saucedo MD Consults: 06/08/23 22:41 Consult to Urology Routine Consulting Provider: Sanjuana Hoover Reason for consultation: Right hydronephrosis Has provider been notified: No Attending physician on discharge: Sal Hernandez Discharging clinician: Sal Hernandez DS: Diagnosis Discharge Diagnosis (1) Hydronephrosis, right: Status: Acute (2) Pyelonephritis: Status: Acute (3) Elevated liver transaminase level: Status: Acute DS: Summary Hospital Course Hospital Course: 68 years old woman with past medical history significant for nephrolithiasis, essential hypertension, hyperlipidemia and hypothyroidism presents to the emergency department complaining of generalized weakness, right flank pain, fevers and chills. Pain has an intensity of 8/10 and is not radiating. She also reports some pain with urination and pink urine occasionally. who was at bedside mentioned that patient has been confused at time and not eating well. Over the last 2 months the patient has been treated for nephrolithiasis with lithotripsy and stent placement at [facility]. Last stent was removed about 5 days ago. She did not report any cardiopulmonary symptoms. In the ED, she was found to have stable vital signs. Temperature is 100.3 degrees. Blood workup did not show leukocytosis or lactic acidosis. LFTs are slightly elevated. There are no significant electrolyte imbalances. Urinalysis consistent with urinary tract infection and microscopic hematuria. Abdominal pelvis CT scan showed moderate right hydronephrosis with ureteral dilation down to the bladder without ureteral stone seen. There is also right perinephritic fat and periureteral fat stranding. ED tx: Zofran 4 mg IV, morphine 4 mg IV, ceftriaxone 1 g IV. Hospital course: Patient was admitted to the hospital for flank pain found dysuria and pyelonephritis-patient was started on IV ceftriaxone, urine culture and blood culture are sent: CT abdomen : Moderate right hydronephrosis and ureter dilation: Patient was seen by Urology and impression: CT abdomen changes was thought to be related to recent ureteral stent removal. Patient will complete p.o. antibiotic Ceftin 500 mg p.o. daily for 12 days. Blood cultures negative at 48 hour, urine culture came mixed angelica. mild elevated Lft's: lft's similar ,ct abd liver seems fine ,monitre lft's ,hold statin,fenofibrate until pcp follow up,further wokrup and use of statin& fenofibrate as per pcp outpatient. plan: Complete Ceftin 500 mg p.o. daily for 12 days. Follow-up with her urologist outpatient. mild elevated Lft's: lft's similar ,ct abd liver seems fine ,monitre lft's ,hold statin,fenofibrate until pcp follow up,further wokrup and use of statin& fenofibrate as per pcp outpatient. Above management discussed with the patient in detail length, she understand and in agreement with the above plan, time spent 50 minute. Time Attestation Discharge coordination time: Greater than 30 minutes Quality: Safe Use of Opioids Does Pt have an Active Cancer Diagnosis on the Problem List?: No Quality: Stroke Does the patient have a stroke diagnosis?: No Physical Exam Vital Signs: Vital Signs: Last Vital Signs Temp 97.0 F 06/11/23 07:29 Pulse 57 06/11/23 07:29 Resp 20 06/11/23 07:29 BP 147/79 H 06/11/23 07:29 Pulse Ox 95 06/11/23 07:29 O2 Del Method Nasal Cannula 06/11/23 07:29 BMI result Body Mass Index 48.9 Appearance: Alert.? Oriented X3.? cvs: rrr, [id number] . res: clear to auscultation ,no rhonchii or wheezing abd: no rebound or guarding ,right flank pain, bs present. ext pulses present , no cyanosis . neuro: axo3 , nonfocal. DS: Data Data Completed and Pending Labs on day of discharge: Laboratory Results - last 24 hr 06/10/23 06/10/23 06/10/23 11:47 16:17 21:10 Sodium POC Glucose 83 104 144 H 06/11/23 06/11/23 06/11/23 07:01 09:32 10:59 Sodium 144 POC Glucose 80 75 Preliminary micro results at discharge 06/08/23 20:04 Blood Culture - Preliminary Blood - Venous No growth after 48 hours. 06/08/23 19:59 Blood Culture - Preliminary Blood - Venous No growth after 48 hours. Imaging Chest x-ray: Radiologist's impression: ITS Impressions Abdomen/Pelvis CT 06/08/23 20:15 IMPRESSION: 1. Moderate right hydronephrosis and ureteral dilatation down to the bladder. No ureteral stone seen. There is right perinephric fat and periureteral fat stranding. This may represent backflow of urine secondary to obstruction. Differential would include infection. Small bilateral renal stones. Question tiny 1 to 2 mm stone in the bladder. Fleischner guidelines were followed. Discharge Plan Discharge Anticipated Discharge Date/Time: 06/11/23 10:56 Patient Disposition: Home, Self-Care Discharge Diagnosis: pyelonephritis ,mild elevated lft's Referrals: Marine Saucedo MD [Primary Care Provider] - 1 Week Discharge Medications: Continued latanoprost 0.005 % drops 1 drp ophthalmic (eye) BEDTIME carvedilol 25 mg tablet 25 mg PO BID ropinirole 1 mg tablet 1 mg PO BID@0900,1500 trazodone 100 mg tablet 250 mg PO BEDTIME amlodipine 10 mg tablet 10 mg PO DAILY levothyroxine 50 mcg tablet 50 mcg PO MOTUWETHFRSA@0600 loratadine 10 mg tablet 10 mg PO DAILY dorzolamide 2 % drops 1 drp ophthalmic (eye) BID bupropion HCl 300 mg tablet extended release 24 hr 300 mg PO DAILY bupropion HCl 150 mg tablet extended release 24 hr 150 mg PO DAILY ferrous gluconate 324 mg (38 mg iron) tablet 324 mg PO BID Mounjaro 7.5 mg/0.5 mL pen injector 7.5 mg subcut QWEEK lisinopril 40 mg tablet 40 mg PO DAILY metformin 500 mg tablet extended release 24 hr 500 mg PO BID sertraline 100 mg tablet 200 mg PO DAILY montelukast 10 mg tablet 10 mg PO DAILY ropinirole 1 mg tablet 2 mg PO BEDTIME levothyroxine 50 mcg tablet 100 mcg PO PIERCE gabapentin 300 mg capsule 900 mg PO BEDTIME lutein 10 mg Tablet 10 mg PO DAILY Rx Instructions: give with meal/snack Held rosuvastatin 40 mg tablet 40 mg PO DAILY Hold Instructions: Resume on 06/21/23. fenofibrate nanocrystallized 145 mg tablet 145 mg PO DAILY Hold Instructions: Resume on 06/21/23. Discharge Orders: Discharge Order (Routine); Ordered 06/11/23 Ordered By: Sal Hernandez Diet: Advance to usual diet Activity on Discharge: As tolerated Stand Alone Forms: Patient Portal Discharge page Care Plan Goals: Patient was admitted to the hospital for flank pain found dysuria and pyelonephritis-patient was started on IV ceftriaxone, urine culture and blood culture are sent: CT abdomen : Moderate right hydronephrosis and ureter dilation: Patient was seen by Urology and impression: CT abdomen changes was thought to be related to recent ureteral stent removal. Patient will complete p.o. antibiotic Ceftin 500 mg p.o. daily for 12 days. Blood cultures negative at 48 hour, urine culture came mixed angelica. mild elevated Lft's: lft's similar ,ct abd liver seems fine ,monitre lft's ,hold statin,fenofibrate until pcp follow up,further wokrup and use of statin& fenofibrate as per pcp outpatient. Health Concerns: Complete Ceftin 500 mg p.o. daily for 12 days. Follow-up with her urologist outpatient. mild elevated Lft's: lft's similar ,ct abd liver seems fine ,monitre lft's ,hold statin,fenofibrate until pcp follow up,further wokrup and use of statin& fenofibrate as per pcp outpatient. Plan of Treatment: As above. Assessment: As above.
--- NOTE | 2023-06-11 11:26 | MHC.CM.PN ---
PATIENT IS DC HOME -SELF CARE. ACCORDING TO REVIEW OF NOTES, PATIENT HAS TRANSPORT HOME. RN AWARE OF PLAN.
== END 2023-06-11 13:03 | disposition home or self-care (01) | DRG 690 ==
LOC: HO.ED 20:07 → HO.EDOVER 22:42 → HO.IMC 06-09 16:00 → HO.S3 06-10 14:28
PROVIDERS: Admitting Provider Internal Medicine; Emergency Provider Internal Medicine; PCP Family Medicine; Visit Provider Internal Medicine
DX: N13.6 Pyonephrosis (principal); Z68.42 Body mass index [BMI] 45.0-49.9, adult; E03.9 Hypothyroidism, unspecified; E78.5 Hyperlipidemia, unspecified; I10 Essential (primary) hypertension; E66.01 Morbid (severe) obesity due to excess calories; E11.9 Type 2 diabetes mellitus without complications; G47.33 Obstructive sleep apnea (adult) (pediatric); Z87.442 Personal history of urinary calculi; Z88.2 Allergy status to sulfonamides; Z79.84 Long term (current) use of oral hypoglycemic drugs; Z79.890 Hormone replacement therapy; Z79.899 Other long term (current) drug therapy
CPT/HCPCS: 36415; 74176; 80053; 81001; 82947; 83605; 83735; 84295; 84443; 85025; 87040; 87086; 99285; J0696; J1644; J2270; J2405

== ENCOUNTER → 2023-06-08 22:37 | Outpatient (BNV) | payer OTHER, SELFPAY | PROVIDERS: Admitting Provider Internal Medicine; Emergency Provider Internal Medicine; Visit Provider Internal Medicine | DX: N13.30 Unspecified hydronephrosis (principal); N12 Tubulo-interstitial nephritis, not specified as acute or chronic; E11.69 Type 2 diabetes mellitus with other specified complication; E78.5 Hyperlipidemia, unspecified | CPT/HCPCS: 99223; 99232; 99239 ==

== ENCOUNTER 2023-11-20 19:26 | Inpatient (IN) | payer OTHER, MEDICARE, SELFPAY ==
--- NOTE | ~2023-11-20 | CT_ITS ---
EXAMINATION: CT ABDOMEN AND PELVIS WITHOUT CONTRAST CLINICAL INFORMATION: Acute renal failure with history of kidney stones COMPARISON: 06/08/2023 TECHNIQUE: Multidetector volumetric imaging was performed from the superior aspect of the liver through the pubic symphysis. Sagittal and coronal reformatted images were obtained on the technologist's workstation. This CT examination was performed using dose optimization techniques as appropriate, variously including the following: *Automated exposure control *Adjustment of mA and/or kV according to patient size (this includes techniques or standardized protocols for targeted exams where dose is matched to indication/reason for exam; i.e. extremities or head) *Use of iterative reconstruction technique DLP: 1194 mGy-cm FINDINGS: LUNG BASES: The visualized lung bases are unremarkable. Coronary artery calcifications are present. LIVER, GALLBLADDER, AND BILIARY TREE: The liver is normal in size, shape, and attenuation. No focal hepatic lesion or biliary ductal dilatation is identified on this noncontrast exam. Patient is status post cholecystectomy. PANCREAS: Unremarkable. SPLEEN: Unremarkable. ADRENAL GLANDS: Left adrenal nodule measuring up to 2.4 cm has the density of a lipid rich adenoma; no follow-up recommended. Right adrenal gland is unremarkable. KIDNEYS AND URETERS: No hydronephrosis or obstructing calculus identified bilaterally. A few scattered bilateral renal calculi are noted measuring up to approximately 10 mm in the right lower pole. Left upper pole renal cyst noted; no follow-up recommended. BLADDER: Unremarkable. GASTROINTESTINAL TRACT: Suture line is present along the stomach. No evidence of bowel obstruction or significant wall thickening. The appendix is unremarkable. No free fluid or free air is seen. ABDOMINAL WALL: No significant hernia is appreciated. LYMPH NODES: Normal. VASCULAR: There is atherosclerotic calcification along the aorta and iliac arteries. PELVIC VISCERA: Patient is status post hysterectomy. OSSEOUS STRUCTURES: Degenerative changes are noted in the spine. CT/CT abdomen pelvis wo IV con IMPRESSION: No hydronephrosis or obstructing calculus identified. Few bilateral renal calculi.
[2023-11-20 19:33] VITALS: BP 112/68; PULSE 80; O2SAT 96
[2023-11-20 19:39] VITALS: BP 108/35; PULSE 64; RESP 16; TEMP 37.4; O2SAT 94; BMI 46.1
--- NOTE | 2023-11-20 19:43 | ECG_ITS ---
Test Reason : WEAKNESS Blood Pressure : / mmHG Vent. Rate : 066 BPM Atrial Rate : 066 BPM P-R Int : 184 ms QRS Dur : 116 ms QT Int : 416 ms P-R-T Axes : 038 -16 021 degrees QTc Int : 436 ms Normal sinus rhythm Minimal voltage criteria for LVH, may be normal variant ( Reggie product ) Borderline ECG When compared with ECG of 02-JUL-2014 13:32, No significant change was found Referred By: Generic ED Physician Electronically Signed By:BRADLEY MARTINEZ MD
--- NOTE | 2023-11-20 20:11 | MHC.EDTECH ---
Patient BIBA,changed into hospital attire,vitals taken and patient placed on the monitoring manager,EKG taken per order and signed by provider,patient ambulated with walker to the bathroom with a steady gait,urine sample collected ,labs and sars/flu/rsv obtained and sent to lab.
[2023-11-20 20:34] LABS: MANUAL DIFF FLAG NO
[2023-11-20 20:39] LABS: Basophils Absolute Auto 0.1 X10*3/uL (0.0-0.2); Basophils Percent Auto 0.9 % (0-2); Eosinophils Absolute Auto 0.3 X10*3/uL (0.0-0.4); Hematocrit 39.1 % (37.0-47.0); Imm Gran Abs Auto 0.03 X10*3/uL (0.00-0.03); Imm Gran Pct Auto 0.4 % (0.0-0.4); Lymphocytes Absolute Auto 1.7 X10*3/uL (1.2-4.9); Lymphocytes Percent Auto 22.5 % (20-40); Mean Corpuscular HGB Conc 33.2 g/dl (31.0-35.0); Mean Corpuscular Hemoglobin 27.1 pg (27.0-33.0); Mean Corpuscular Volume 81.6 fL (80.0-98.0); Mean Platelet Volume 10.8 fL (9.4-12.3); Monocytes Absolute Auto 0.8 X10*3/uL (0.1-1.2); Monocytes Percent Auto 10.6 % (2-11); Neutrophils Absolute Auto 4.7 x10*3/uL (2.0-8.3); Neutrophils Percent Auto 61.6 % (45-73); Platelet Count 244 X10*3/uL (160-400); Red Blood Count 4.79 X10*6/uL (4.20-5.50); Red Cell Distribution Width 14.4 % (11.0-16.0); White Blood Count 7.6 X10*3/uL (4.8-10.8)
[2023-11-20 20:58] LABS: Troponin-I High Sensitivity 4.9 ng/L (<3.5-17.0)
[2023-11-20 21:01] LABS: Appearance Urine Cloudy; Color Urine Dark Yellow; Glucose Urine UA Negative (Negative); Leukocyte Esterase Urine Moderate (2+) (Negative); Nitrite Urine Negative (Negative); Specific Gravity - Urine 1.025 (1.005-1.025); UMIC TRIGGER UACC YES; Urine Blood Negative (Negative); Urine Ketones Trace mg/dL (Negative); Urine Protein 30 (1+) mg/dL (Neg-Trace)
--- NOTE | 2023-11-20 21:10 | ED_ITS ---
HPI - General Adult General Chief complaint: General Medical Stated complaint: pressure behind eye, dizziness Time Seen by Provider: 11/20/23 21:10 Source: patient Mode of arrival: ambulatory Limitations: no limitations History of Present Illness ED Provider: tara MAY narrative: Patient is 60 years old with history of hypertension hyperlipidemia hypothyroidism and nephrolithiasis, obstructive sleep apnea on CPAP comes here with multiple complaints with weakness confusion dizziness metallic taste poor appetite decreased urine output for last 10-14 days patient not drinking enough fluids no fever no chills, patient was seen here on 06/11 had creatinine of 0.72 at that time today labs done prior to my evaluation showed creatinine of 4.34 with potassium of 5.6 denied any flank pain Related Data Home Medications ?Medication ?Instructions ?Recorded ?Confirmed amlodipine 10 mg tablet 10 mg PO DAILY 06/08/23 06/08/23 bupropion HCl 150 mg 24 hr tablet, 150 mg PO DAILY 06/08/23 06/09/23 extended release bupropion HCl 300 mg 24 hr tablet, 300 mg PO DAILY 06/08/23 06/08/23 extended release carvedilol 25 mg tablet 25 mg PO BID 06/08/23 06/08/23 dorzolamide 2 % eye drops 1 drp ophthalmic (eye) BID 06/08/23 06/08/23 fenofibrate nanocrystallized 145 145 mg PO DAILY 06/08/23 06/08/23 mg tablet ferrous gluconate 324 mg (38 mg 324 mg PO BID 06/08/23 06/09/23 iron) tablet latanoprost 0.005 % eye drops 1 drp ophthalmic (eye) BEDTIME 06/08/23 06/08/23 levothyroxine 50 mcg tablet 50 mcg PO MOTUWETHFRSA@0600 06/08/23 06/09/23 lisinopril 40 mg tablet 40 mg PO DAILY 06/08/23 06/08/23 loratadine 10 mg tablet 10 mg PO DAILY 06/08/23 06/09/23 metformin 500 mg tablet,extended 500 mg PO BID 06/08/23 06/08/23 release 24 hr montelukast 10 mg tablet 10 mg PO DAILY 06/08/23 06/08/23 ropinirole 1 mg tablet 1 mg PO BID@0900,1500 06/08/23 06/09/23 rosuvastatin 40 mg tablet 40 mg PO DAILY 06/08/23 06/09/23 sertraline 100 mg tablet 200 mg PO DAILY 06/08/23 06/08/23 tirzepatide 7.5 mg/0.5 mL 7.5 mg subcut QWEEK 06/08/23 06/09/23 subcutaneous pen injector (Nadya) trazodone 100 mg tablet 250 mg PO BEDTIME 06/08/23 06/09/23 gabapentin 300 mg capsule 900 mg PO BEDTIME 06/09/23 06/09/23 levothyroxine 50 mcg tablet 100 mcg PO PIERCE 06/09/23 06/09/23 lutein 10 mg tablet 10 mg PO DAILY 06/09/23 06/09/23 ropinirole 1 mg tablet 2 mg PO BEDTIME 06/09/23 06/09/23 Previous Rx's ?Medication ?Instructions ?Recorded cefuroxime axetil 500 mg tablet 500 mg PO BID #24 tabs 06/11/23 Allergies Allergy/AdvReac Type Severity Reaction Status Date / Time Sulfa (Sulfonamide Allergy Unknown HIVES Verified 11/20/23 19:40 Antibiotics) [SULFA (SULFONAMIDE ANTIBIOTICS)] Review of Systems 2 Review of Systems: Yes all other systems are reviewed and are negative PMFSH Past Medical History Medical History Hypothyroidism Type 2 diabetes mellitus Obstructive sleep apnea on CPAP Hyperlipidemia Essential hypertension Morbid obesity Surgical History Hx of cholecystectomy Social History Social History Household Members: Spouse Housing: House Do you presently have visiting nurse or other home services: Yes Patient Tobacco Use Status: Never used Tobacco Advance Directives: No Advance Directives Information Provided: No Do you have a plan to hurt others: No Plan service: No Physical Exam ED Vital Signs: Vital Signs - 24 hr 11/20/23 19:39 11/20/23 21:55 Temperature 99.3 F 98.6 F Pulse Rate 64 60 Respiratory Rate 16 18 Blood Pressure 108/35 L 107/46 L Pulse Oximetry 94 95 Oxygen Delivery Method Room Air Room Air BMI result Body Mass Index 46.1 Appearance: Alert. Oriented X3. No acute distress. Eyes: PERRLA, No Nystagmus ENT: Pharynx normal. Oral Mucosa moist Neck: Normal inspection. Neck supple. CVS: Normal heart rate and rhythm. Pulses normal. Respiratory: No respiratory distress. Equal air entry bilateral, no wheezing/rales/rhonchi Abdomen: Soft and nontender. Bowel sounds are present, no mass palpable, no CVA tenderness Skin: Skin warm and dry. Normal skin color. Normal skin turgor. Extremities: No lower extremity edema. No calf tenderness Neuro: Oriented X 3. No motor deficit. No sensory deficit.No cerebellar signs , cranial nerves II-XII intact Medications Administered Generic Name Dose Route Start Last Admin Trade Name Freq PRN Reason Stop Dose Admin Sodium Chloride 1,000 mls @ 999 mls/hr 11/20/23 23:17 11/20/23 23:53 Ns IV 11/21/23 00:17 999 mls/hr .Q1H1M ONE Administration Discontinued Medications Generic Name Dose Route Start Last Admin Trade Name Freq PRN Reason Stop Dose Admin Sodium Chloride 1,000 mls @ 999 mls/hr 11/20/23 21:14 11/20/23 22:45 Ns IV 11/20/23 22:14 Infused .Q1H1M ONE Infusion Sodium Zirconium Cyclosilicate 10 gm 11/20/23 23:34 11/20/23 23:52 Sodium Zirconium Cyclosilicate 10 Gm Powd.Pack PO 11/20/23 23:35 10 gm ONCE ONE Administration Medical Decision Making Medical Decision Making [facility] Narrative: Patient's TIMOTHY likely prerenal with ATN secondary to poor oral intake and multiple medications. CT scan of the neck negative for any obstructive uropathy. Will hydrate patient recheck creatinine plan to admit for TIMOTHY/ATN Differential Diagnosis Differential Diagnoses: The differential diagnosis associated with the presentation includes Metabolic encephalopathy/UTI/sleep apnea/hypoxia Admission/Observation Consideration of admission/observation: Escalation of care including admission/observation considered Consult Healthcare Provider Management of the patient was discussed with: Hospitalist Lab Data [facility] Lab Attestation statement: I reviewed the patient's lab results. 11/20/23 20:28 11/20/23 20:28 Labs: Lab Results 11/20/23 11/20/23 11/20/23 Range/Units 20:25 20:28 21:54 WBC 7.6 (4.8-10.8) X10*3/uL RBC 4.79 (4.20-5.50) X10*6/uL Hgb 13.0 (12.0-16.0) g/dl Hct 39.1 (37.0-47.0) % MCV 81.6 (80.0-98.0) fL MCH 27.1 (27.0-33.0) pg MCHC 33.2 (31.0-35.0) g/dl RDW 14.4 (11.0-16.0) % Plt Count 244 (160-400) X10*3/uL MPV 10.8 (9.4-12.3) fL Immature Gran % (Auto) 0.4 (0.0-0.4) % Neut % (Auto) 61.6 (45-73) % Lymph % (Auto) 22.5 (20-40) % [place] % (Auto) 10.6 (2-11) % Eos % (Auto) 4.0 (0-4) % Baso % (Auto) 0.9 (0-2) % Lymph # (Auto) 1.7 (1.2-4.9) X10*3/uL Early # (Auto) 0.8 (0.1-1.2) X10*3/uL Eos # (Auto) 0.3 (0.0-0.4) X10*3/uL Baso # (Auto) 0.1 (0.0-0.2) X10*3/uL Abs Immat Gran (auto) 0.03 (0.00-0.03) X10*3/uL Absolute Neuts (auto) 4.7 (2.0-8.3) x10*3/uL Absolute Nucleated RBC 0.000 (0.0-0.012) X10*3/uL Nucleated RBC % (auto) 0.0 (0.0-0.2) /100WBC VBG pH (7.32-7.43) VBG pCO2 mmHg VBG pO2 mmHg VBG HCO3 (22-26) mmol/L VBG O2 Saturation % VBG Base Excess mmol/L Sodium 139 (135-145) mmol/L Potassium 5.6 H D (3.3-5.1) mmol/L Chloride 106 (96-108) mmol/L Carbon Dioxide 20 L (22-29) mmol/L Anion Gap 19 (12-20) BUN 69 H (9-16) mg/dL Creatinine 4.34 H* (0.5-1.4) mg/dL Estim Creat Clear Calc 16.5 Estimated GFR 10 Random Glucose 85 (60-115) mg/dL Lactic Acid 0.7 (0.5-2.0) mmol/L Calcium 9.7 (8.4-10.2) mg/dL Total Bilirubin 0.5 (0.0-1.0) mg/dL Direct Bilirubin 0.2 (0.0-0.5) mg/dL AST 21 (5-31) U/L ALT 19 (0-31) U/L Alkaline Phosphatase 44 (39-117) U/L Troponin I High Sens 4.9 (<3.5-17.0) ng/L Total Protein 7.4 (6.5-8.0) g/dL Albumin 4.4 (3.5-5.0) g/dL TSH 1.00 (0.32-4.0) uIU/mL Urine Color Dark Yellow Urine Appearance Cloudy Urine pH 5.0 (5.0-9.0) Ur Specific [place] 1.025 (1.005-1.025) Urine Protein 30 (1+) H (Neg-Trace) mg/dL Urine Glucose (UA) Negative (Negative) mg/dL Urine Ketones Trace (Negative) mg/dL Urine Blood Negative (Negative) Urine Nitrite Negative (Negative) Ur Leukocyte Esterase Moderate (2+) H (Negative) Urine RBC 3-5 H (0-2) /HPF Urine WBC 11-20 H (0-5) /HPF Ur Squamous Epith Cells 11-20 (0-2) /HPF Urine Bacteria 2+ (None Seen) Hyaline Casts >20 (0-2) /LPF Influenza Type A (PCR) NEGATIVE (Negative) Influenza Type B (PCR) NEGATIVE (Negative) RSV RNA Qual (PCR) NEGATIVE (Negative) SARS-CoV-2 RNA (RT-PCR) NEGATIVE (Negative) 11/20/23 Range/Units 21:56 WBC (4.8-10.8) X10*3/uL RBC (4.20-5.50) X10*6/uL Hgb (12.0-16.0) g/dl Hct (37.0-47.0) % MCV (80.0-98.0) fL MCH (27.0-33.0) pg MCHC (31.0-35.0) g/dl RDW (11.0-16.0) % Plt Count (160-400) X10*3/uL MPV (9.4-12.3) fL Immature Gran % (Auto) (0.0-0.4) % Neut % (Auto) (45-73) % Lymph % (Auto) (20-40) % [place] % (Auto) (2-11) % Eos % (Auto) (0-4) % Baso % (Auto) (0-2) % Lymph # (Auto) (1.2-4.9) X10*3/uL Early # (Auto) (0.1-1.2) X10*3/uL Eos # (Auto) (0.0-0.4) X10*3/uL Baso # (Auto) (0.0-0.2) X10*3/uL Abs Immat Gran (auto) (0.00-0.03) X10*3/uL Absolute Neuts (auto) (2.0-8.3) x10*3/uL Absolute Nucleated RBC (0.0-0.012) X10*3/uL Nucleated RBC % (auto) (0.0-0.2) /100WBC VBG pH 7.36 (7.32-7.43) VBG pCO2 38 mmHg VBG pO2 113 mmHg VBG HCO3 22 (22-26) mmol/L VBG O2 Saturation 100.0 % VBG Base Excess -2.6 mmol/L Sodium (135-145) mmol/L Potassium (3.3-5.1) mmol/L Chloride (96-108) mmol/L Carbon Dioxide (22-29) mmol/L Anion Gap (12-20) BUN (9-16) mg/dL Creatinine (0.5-1.4) mg/dL Estim Creat Clear Calc Estimated GFR Random Glucose (60-115) mg/dL Lactic Acid (0.5-2.0) mmol/L Calcium (8.4-10.2) mg/dL Total Bilirubin (0.0-1.0) mg/dL Direct Bilirubin (0.0-0.5) mg/dL AST (5-31) U/L ALT (0-31) U/L Alkaline Phosphatase (39-117) U/L Troponin I High Sens (<3.5-17.0) ng/L Total Protein (6.5-8.0) g/dL Albumin (3.5-5.0) g/dL TSH (0.32-4.0) uIU/mL Urine Color Urine Appearance Urine pH (5.0-9.0) Ur Specific [place] (1.005-1.025) Urine Protein (Neg-Trace) mg/dL Urine Glucose (UA) (Negative) mg/dL Urine Ketones (Negative) mg/dL Urine Blood (Negative) Urine Nitrite (Negative) Ur Leukocyte Esterase (Negative) Urine RBC (0-2) /HPF Urine WBC (0-5) /HPF Ur Squamous Epith Cells (0-2) /HPF Urine Bacteria (None Seen) Hyaline Casts (0-2) /LPF Influenza Type A (PCR) (Negative) Influenza Type B (PCR) (Negative) RSV RNA Qual (PCR) (Negative) SARS-CoV-2 RNA (RT-PCR) (Negative) Independent Interpretation I performed an independent interpretation of an: EKG Interpretation: Normal sinus rhythm heart rate 66 beats per minute LVH no acute STT wave changes no acute ischemia Discharge Plan Discharge Clinical Impression: Acute renal failure, Acute metabolic encephalopathy Patient Disposition: Admitted As Inpatient Print Language: Amharic
[2023-11-20 21:12] LABS: Anion Gap 19 (12-20); Blood Urea Nitrogen 69 mg/dL (9-16); Calcium 9.7 mg/dL (8.4-10.2); Carbon Dioxide 20 mmol/L (22-29); Chloride 106 mmol/L (96-108); Creatinine Clr Calc Pharmacy 16.5; Estimated Glomerular Filt Rate 10; Glucose Random 85 mg/dL (60-115); Potassium 5.6 mmol/L (3.3-5.1); Sodium 139 mmol/L (135-145)
[2023-11-20 21:14] LABS: Influenza A PCR NEGATIVE (Negative); Influenza B PCR NEGATIVE (Negative); Resp Syncy Virus RNA Qual PCR NEGATIVE (Negative); SARS COV2 PCR INHOUSE NEGATIVE (Negative)
[2023-11-20 21:40] LABS: Alanine Aminotransferase 19 U/L (0-31); Albumin Level 4.4 g/dL (3.5-5.0); Alkaline Phosphatase 44 U/L (39-117); Aspartate Amino Transferase 21 U/L (5-31); Bilirubin Direct 0.2 mg/dL (0.0-0.5); Bilirubin Total 0.5 mg/dL (0.0-1.0); Total Protein 7.4 g/dL (6.5-8.0)
[2023-11-20] MEDS: 0.9 % Sodium Chloride 1,000 ML 999 ML IV ×2 (21:42→23:53)
[2023-11-20 21:52] LABS: Bacteria Urine 2+ (None Seen); Hyaline Casts Urine >20 /LPF (0-2); UACC Culture Trigger YES
[2023-11-20 21:55] VITALS: BP 107/46; PULSE 60; RESP 18; TEMP 37; O2SAT 95
--- NOTE | 2023-11-20 22:00 | MHC.EDTECH ---
Hourly rounds and vitals completed,labs drawn and sent to lab. Belongings list completed and copy placed in chart
[2023-11-20 22:05] LABS: VBG Base Excess -2.6 mmol/L; VBG HCO3 22 mmol/L (22-26); VBG pCO2 38 mmHg; VBG pH 7.36 (7.32-7.43); VBG pO2 113 mmHg
[2023-11-20 22:10] LABS: Lactic Acid 0.7 mmol/L (0.5-2.0)
[2023-11-20 22:14] LABS: Venous Blood Gas Refer to POC result
[2023-11-20] MEDS: Sodium Zirconium Cyclosilicate 10 GM POWD.PACK PO (23:52)
[2023-11-21] VITALS (8 sets, daily range): BP systolic 106–148; BP diastolic 45–67; PULSE 57–63; RESP 16–18; TEMP 36.1–37.1; O2SAT 95–96; BMI 47.4
--- NOTE | 2023-11-21 00:05 | PM.IMHP ---
History of Present Illness Date of Service: 11/21/23 Chief Complaint: Weakness This is a 68-year-old female with pertinent history of hypertension, mixed hyperlipidemia, BRENNAN on CPAP, hypothyroidism, mood disorder, hyg-efwoxqz-wrvupzwne diabetes mellitus, obesity who presents to the emergency department for evaluation of generalized weakness. Patient states she was sent to the ER by her family who noticed that she was weak. Patient endorses malaise and generalized fatigability. Patient admits poor p.o. intake for the last few days. She also admits that her family has told that she has been confused intermittently. Endorses change in color of urine and urinary hesitancy. No fever, chills, chest discomfort, palpitations, shortness of breath, abdominal pain, changes in bowel habits. In the emergency department, creatinine found to be elevated. Urine concerning for UTI. Patient was resuscitated with IV crystalloids and given IV Rocephin. Review of Systems Constitutional: Constitutional: Reports fatigue, Reports lethargy, Reports malaise, Reports poor appetite and Reports weakness Cardiovascular: Cardiovascular: Reports no additional cardiovascular complaints Respiratory: Respiratory: Reports no additional respiratory complaints Gastrointestinal: Gastrointestinal: Reports no additional gastrointestinal complaints Genitourinary: Genitourinary: Reports difficulty voiding and Reports urinary hesitancy Neurologic: Reports weakness Endocrine: Endocrine: Reports fatigue PMFSH Medical History Hypothyroidism Type 2 diabetes mellitus Obstructive sleep apnea on CPAP Hyperlipidemia Essential hypertension Morbid obesity Pertinent family history: Not significant Surgical History Hx of cholecystectomy Social History Household Members: Spouse Housing: House Do you presently have visiting nurse or other home services: Yes Patient Tobacco Use Status: Never used Tobacco Smoked in Last 30 Days: No Use of substances other than those prescribed or required for medical reasons: No Advance Directives: No Advance Directives Information Provided: No Do you have a plan to hurt others: No Plan Nutrition Risks: No Nutritional Risk service: No Meds Allergies Allergy/AdvReac Type Severity Reaction Status Date / Time Sulfa (Sulfonamide Allergy Unknown HIVES Verified 11/20/23 19:40 Antibiotics) [SULFA (SULFONAMIDE ANTIBIOTICS)] Active Medications: Current Medications Sodium Chloride (Ns) 1,000 mls @ 999 mls/hr IV .Q1H1M ONE Stop: 11/21/23 00:17 Last Admin: 11/20/23 23:53 Dose: 999 mls/hr Home Medications ?Medication ?Instructions ?Recorded ?Confirmed ?Last Taken ?Type amlodipine 10 mg tablet 10 mg PO DAILY 06/08/23 06/08/23 Unknown History bupropion HCl 150 mg 24 hr tablet, 150 mg PO DAILY 06/08/23 06/09/23 Unknown History extended release bupropion HCl 300 mg 24 hr tablet, 300 mg PO DAILY 06/08/23 06/08/23 Unknown History extended release carvedilol 25 mg tablet 25 mg PO BID 06/08/23 06/08/23 Unknown History dorzolamide 2 % eye drops 1 drp ophthalmic (eye) BID 06/08/23 06/08/23 Unknown History fenofibrate nanocrystallized 145 145 mg PO DAILY 06/08/23 06/08/23 Unknown History mg tablet ferrous gluconate 324 mg (38 mg 324 mg PO BID 06/08/23 06/09/23 Unknown History iron) tablet latanoprost 0.005 % eye drops 1 drp ophthalmic (eye) BEDTIME 06/08/23 06/08/23 Unknown History levothyroxine 50 mcg tablet 50 mcg PO MOTUWETHFRSA@0600 06/08/23 06/09/23 Unknown History lisinopril 40 mg tablet 40 mg PO DAILY 06/08/23 06/08/23 Unknown History loratadine 10 mg tablet 10 mg PO DAILY 06/08/23 06/09/23 Unknown History metformin 500 mg tablet,extended 500 mg PO BID 06/08/23 06/08/23 Unknown History release 24 hr montelukast 10 mg tablet 10 mg PO DAILY 06/08/23 06/08/23 Unknown History ropinirole 1 mg tablet 1 mg PO BID@0900,1500 06/08/23 06/09/23 Unknown History rosuvastatin 40 mg tablet 40 mg PO DAILY 06/08/23 06/09/23 Unknown History sertraline 100 mg tablet 200 mg PO DAILY 06/08/23 06/08/23 Unknown History tirzepatide 7.5 mg/0.5 mL 7.5 mg subcut QWEEK 06/08/2306/09/24 Unknown History subcutaneous pen injector (Nadya) trazodone 100 mg tablet 250 mg PO BEDTIME 06/08/23 06/09/23 Unknown History gabapentin 300 mg capsule 900 mg PO BEDTIME 06/09/23 06/09/23 Unknown History levothyroxine 50 mcg tablet 100 mcg PO PIERCE 06/09/23 06/09/23 Unknown History lutein 10 mg tablet 10 mg PO DAILY 06/09/23 06/09/23 Unknown History ropinirole 1 mg tablet 2 mg PO BEDTIME 06/09/23 06/09/23 Unknown History Physical Exam Vital Signs and Narrative: Vital Signs: Last Vital Signs Temp 98.6 F 11/20/23 21:55 Pulse 60 11/20/23 21:55 Resp 18 11/20/23 21:55 BP 107/46 L 11/20/23 21:55 Pulse Ox 95 11/20/23 21:55 O2 Del Method Room Air 11/20/23 21:55 BMI result Body Mass Index 46.1 Middle-aged female lying in bed in no distress Neck supple, no JVD Regular rate and rhythm, S1-S2 heard Regular breath sounds bilaterally, no wheezing or crackles appreciated Abdomen soft nontender, no guarding, no rigidity Patient is awake, alert and oriented to self, place, time and person ; no focal motor deficit Psych: Normal mood No pedal edema Results Labs 11/20/23 20:28 11/20/23 20:28 Labs: Laboratory Results - last 24 hr 11/20/23 11/20/23 11/20/23 20:25 20:28 21:54 MCV 81.6 MCH 27.1 MCHC 33.2 RDW 14.4 Plt Count 244 MPV 10.8 Immature Gran % (Auto) 0.4 Neut % (Auto) 61.6 Lymph % (Auto) 22.5 [place] % (Auto) 10.6 Eos % (Auto) 4.0 Baso % (Auto) 0.9 Lymph # (Auto) 1.7 [place] # (Auto) 0.8 Eos # (Auto) 0.3 Baso # (Auto) 0.1 Abs Immat Gran (auto) 0.03 Absolute Neuts (auto) 4.7 Absolute Nucleated RBC 0.000 Nucleated RBC % (auto) 0.0 VBG pH VBG pCO2 VBG pO2 VBG HCO3 VBG O2 Saturation VBG Base Excess Anion Gap 19 Estim Creat Clear Calc 16.5 Estimated GFR 10 Random Glucose 85 Lactic Acid 0.7 Calcium 9.7 Total Bilirubin 0.5 Direct Bilirubin 0.2 AST 21 ALT 19 Alkaline Phosphatase 44 Troponin I High Sens 4.9 Total Protein 7.4 Albumin 4.4 TSH 1.00 Urine Color Dark Yellow Urine Appearance Cloudy Urine pH 5.0 Ur Specific [place] 1.025 Urine Protein 30 (1+) H Urine Glucose (UA) Negative Urine Ketones Trace Urine Blood Negative Urine Nitrite Negative Ur Leukocyte Esterase Moderate (2+) H Urine RBC 3-5 H Urine WBC 11-20 H Ur Squamous Epith Cells 11-20 Urine Bacteria 2+ Hyaline Casts >20 Influenza Type A (PCR) NEGATIVE Influenza Type B (PCR) NEGATIVE RSV RNA Qual (PCR) NEGATIVE SARS-CoV-2 RNA (RT-PCR) NEGATIVE 11/20/23 21:56 MCV MCH MCHC RDW Plt Count MPV Immature Gran % (Auto) Neut % (Auto) Lymph % (Auto) [place] % (Auto) Eos % (Auto) Baso % (Auto) Lymph # (Auto) [place] # (Auto) Eos # (Auto) Baso # (Auto) Abs Immat Gran (auto) Absolute Neuts (auto) Absolute Nucleated RBC Nucleated RBC % (auto) VBG pH 7.36 VBG pCO2 38 VBG pO2 113 VBG HCO3 22 VBG O2 Saturation 100.0 VBG Base Excess -2.6 Anion Gap Estim Creat Clear Calc Estimated GFR Random Glucose Lactic Acid Calcium Total Bilirubin Direct Bilirubin AST ALT Alkaline Phosphatase Troponin I High Sens Total Protein Albumin TSH Urine Color Urine Appearance Urine pH Ur Specific [place] Urine Protein Urine Glucose (UA) Urine Ketones Urine Blood Urine Nitrite Ur Leukocyte Esterase Urine RBC Urine WBC Ur Squamous Epith Cells Urine Bacteria Hyaline Casts Influenza Type A (PCR) Influenza Type B (PCR) RSV RNA Qual (PCR) SARS-CoV-2 RNA (RT-PCR) Imaging Radiologist's Impressions: Impressions Abdomen/Pelvis CT 11/20/23 21:30 IMPRESSION: No hydronephrosis or obstructing calculus identified. Few bilateral renal calculi. Assessment and Plan (1) Acute renal failure: Status: Acute (2) Acute metabolic encephalopathy: Status: Acute Plan This is a 68-year-old female with pertinent history of hypertension, mixed hyperlipidemia, BRENNAN on CPAP, hypothyroidism, mood disorder, yab-xizffio-xucscxvgg diabetes mellitus, obesity who presents to the emergency department for evaluation of generalized weakness. #. Acute kidney injury stage III: No obstruction on imaging. Given IV crystalloids in the ER. Monitor urine output and creatinine. Avoid nephrotoxins. #. Acute metabolic encephalopathy in the setting of above and ?UTI: Initiating empiric IV ceftriaxone. No sepsis #. Hyperkalemia due to TIMOTHY: Lokelma given in the ER. Closely monitor #. Hypertension: Continue home antihypertensives. Hold lisinopril in the setting of TIMOTHY #. Mixed hyperlipidemia: On statin #. BRENNAN: Continue CPAP at bedtime #. Gon-dvozzqf-hiawzgsto diabetes mellitus: Initiating Accu-Cheks with sliding scale insulin #. Mood disorder: Continue home mood stabilizers #. Hypothyroidism: On Synthroid. TSH okay Med rec pending DVT prophylaxis: Lovenox Full code Admit as inpatient and will require two night minimum hospital stay for monitoring of kidney function, mentation, IV antibiotics (as above), which is not possible in a lesser acute setting. Quality Stroke Does the patient have a stroke diagnosis?: No VTE Prior VTE?: No VTE Risk Level:: Medical - moderate - high VTE Device Contraindication: Treatment Not Indicated VTE Drug Contraindication: N/A - Med Ordered
--- NOTE | 2023-11-21 00:58 | MHC.EDTECH ---
Rounds and vitals completed,patient is watching TV at this time,call martinez in reach
--- NOTE | 2023-11-21 02:30 | PC.NURSE ---
Per Dr. Queen blood draw for blood cultures not needed at this time.
[2023-11-21] MEDS: cefTRIAXone sodium 1 GM in 0.9 % Sodium Chloride 50 ML IV ×2 (02:38→20:39)
--- NOTE | 2023-11-21 07:28 | HO.PM.IMPN ---
Subjective Subjective Date of Service: 11/21/23 Interval History: Seen in follow up for timothy, uti, encephalopathy Interval history: pt oriented x4. No complaints at this time. Creat with slight improvement Physical Exam Vital Signs: Vital Signs: Last Vital Signs Temp 97.8 F 11/21/23 07:17 Pulse 58 11/21/23 07:17 Resp 16 11/21/23 07:17 BP 132/64 11/21/23 07:17 Pulse Ox 96 11/21/23 07:17 O2 Del Method Room Air 11/21/23 07:17 BMI result Body Mass Index 47.4 Constitutional - Awake and Alert, No apparent distress Eyes - PERRLA, EOMI Cardiovascular - S1S2, RRR, No edema Respiratory - Normal lung expansion, Normal respiratory effort, No respiratory distress, CTA bilaterally Gastrointestinal - NT / ND; +BS; No rebound or guarding Extremities - no calf tenderness bilaterally, no swelling Skin - Warm/Dry Neurological - Alert & oriented x3 Psychological - Appropriate affect Objective Data Active Medications Acetaminophen (Acetaminophen 325 Mg Tablet) 650 mg PO Q6H PRN PRN Reason: Pain, Mild (Pain Scale 1-3), fever or headache Calcium Carbonate (Calcium Carbonate 750 Mg Tab.Chew) 750 mg PO Q4H PRN PRN Reason: Heartburn Enoxaparin Sodium (Enoxaparin Sodium 30 Mg/0.3 Ml Syringe) 30 mg SUBCUT Q24H [facility] Glucose (Glucose Gel 15 Gm Gel..Gram.) 15 gm PO Q15M PRN; Protocol PRN Reason: per Hypoglycemia Standing Ord. Dextrose (D10) 250 mls @ 750 mls/hr IV Q15M PRN; Protocol PRN Reason: per Hypoglycemia Standing Ord. Ceftriaxone Sodium 1 gm/ (Sodium Chloride) 50 mls @ 100 mls/hr IV 2200 [facility] Last Infusion: 11/21/23 03:10 Dose: Infused Documented By: PIETER Insulin Human Lispro (Insulin Lispro 100 Unit/Ml 3 Ml Vial) 0 unit SUBCUT QIDACHS [facility]; Protocol Magnesium Hydroxide (Milk Of Magnesia 30 Ml Oral.Susp) 30 ml PO DAILY PRN PRN Reason: Constipation Melatonin (Melatonin 3 Mg Tablet) 6 mg PO BEDTIME PRN PRN Reason: Insomnia Ondansetron HCl (Ondansetron Hcl 4 Mg/2 Ml Vial) 4 mg IVPUSH Q8H PRN PRN Reason: Nausea and Vomiting Sodium Chloride (0.9 % Sodium Chloride Flush 3 Ml Syringe) 3 ml IVFLUSH QSHIFT [facility] Labs 11/21/23 07:47 11/21/23 07:47 Labs: Laboratory Results - last 24 hr 11/20/23 11/20/23 11/20/23 20:25 20:28 21:54 MCV 81.6 MCH 27.1 MCHC 33.2 RDW 14.4 Plt Count 244 MPV 10.8 Immature Gran % (Auto) 0.4 Neut % (Auto) 61.6 Lymph % (Auto) 22.5 [place] % (Auto) 10.6 Eos % (Auto) 4.0 Baso % (Auto) 0.9 Lymph # (Auto) 1.7 [place] # (Auto) 0.8 Eos # (Auto) 0.3 Baso # (Auto) 0.1 Abs Immat Gran (auto) 0.03 Absolute Neuts (auto) 4.7 Absolute Nucleated RBC 0.000 Nucleated RBC % (auto) 0.0 VBG pH VBG pCO2 VBG pO2 VBG HCO3 VBG O2 Saturation VBG Base Excess Anion Gap 19 Estim Creat Clear Calc 16.5 Estimated GFR 10 Random Glucose 85 Lactic Acid 0.7 Calcium 9.7 Total Bilirubin 0.5 Direct Bilirubin 0.2 AST 21 ALT 19 Alkaline Phosphatase 44 Troponin I High Sens 4.9 Total Protein 7.4 Albumin 4.4 TSH 1.00 Urine Color Dark Yellow Urine Appearance Cloudy Urine pH 5.0 Ur Specific [place] 1.025 Urine Protein 30 (1+) H Urine Glucose (UA) Negative Urine Ketones Trace Urine Blood Negative Urine Nitrite Negative Ur Leukocyte Esterase Moderate (2+) H Urine RBC 3-5 H Urine WBC 11-20 H Ur Squamous Epith Cells 11-20 Urine Bacteria 2+ Hyaline Casts >20 Influenza Type A (PCR) NEGATIVE Influenza Type B (PCR) NEGATIVE RSV RNA Qual (PCR) NEGATIVE SARS-CoV-2 RNA (RT-PCR) NEGATIVE 11/20/23 21:56 MCV MCH MCHC RDW Plt Count MPV Immature Gran % (Auto) Neut % (Auto) Lymph % (Auto) [place] % (Auto) Eos % (Auto) Baso % (Auto) Lymph # (Auto) [place] # (Auto) Eos # (Auto) Baso # (Auto) Abs Immat Gran (auto) Absolute Neuts (auto) Absolute Nucleated RBC Nucleated RBC % (auto) VBG pH 7.36 VBG pCO2 38 VBG pO2 113 VBG HCO3 22 VBG O2 Saturation 100.0 VBG Base Excess -2.6 Anion Gap Estim Creat Clear Calc Estimated GFR Random Glucose Lactic Acid Calcium Total Bilirubin Direct Bilirubin AST ALT Alkaline Phosphatase Troponin I High Sens Total Protein Albumin TSH Urine Color Urine Appearance Urine pH Ur Specific [place] Urine Protein Urine Glucose (UA) Urine Ketones Urine Blood Urine Nitrite Ur Leukocyte Esterase Urine RBC Urine WBC Ur Squamous Epith Cells Urine Bacteria Hyaline Casts Influenza Type A (PCR) Influenza Type B (PCR) RSV RNA Qual (PCR) SARS-CoV-2 RNA (RT-PCR) Assessment and Plan (1) Acute metabolic encephalopathy: Status: Acute (2) Acute renal failure: Status: Acute Plan 68-year-old female with pertinent history of hypertension, mixed hyperlipidemia, BRENNAN on CPAP, hypothyroidism, mood disorder, [id number] diabetes mellitus, obesity who presents to the emergency department for admitted for further management of TIMOTHY, UTI with acute encephalopathy #. Acute kidney injury with ?background ckd -no obstructing stones or hydronephrosis seen on CT -creatinine 4.34 -->3.17 -continue ivf -avoid nephrotoxins, low-sodium diet -monitor I&O -follow renal function/lytes #Acute metabolic encephalopathy in the setting of above and ?UTI -mentation baseline 11/20, oriented x4 -continue IV ceftriaxone (initiated 11/19). No sepsis -follow cultures #Hyperkalemia due to TIMOTHY -Lokelma given in the ER -resolved #Hypertension -continue carvedilol, amlodipine. Hold lisinopril in setting of TIMOTHY # hyperlipidemia -hold statin and fenofibrate due to TIMOTHY #BRENNAN -Continue CPAP at bedtime #Qbs-aaitiup-hbysibjwv diabetes mellitus without hyperglycemia -POC glucose, diabetic diet -Humalog on sliding scale -hold metformin, Mounjaro # mood disorder -continue home medications # hypothyroidism -euthyroid, continue current dose of levothyroxine DVT prophylaxis: Renally adjusted Lovenox Full code Patient requires ongoing inpatient stay due to acute UTI with metabolic encephalopathy and TIMOTHY requiring IV fluid resuscitation, IV antibiotics and close monitoring of renal function Quality Stroke Does the patient have a stroke diagnosis?: No VTE Prior VTE?: No VTE Risk Level:: Medical - moderate - high VTE Device Contraindication: Treatment Not Indicated VTE Drug Contraindication: N/A - Med Ordered
[2023-11-21 07:57] LABS: Glucose, Whole Blood 81 mg/dL (60-115)
[2023-11-21 08:17] LABS: MANUAL DIFF FLAG NO
[2023-11-21] MEDS: Enoxaparin Sodium 30 MG/0.3 ML SYRINGE SUBCUT (08:25)
[2023-11-21 08:26] LABS: Basophils Absolute Auto 0.1 X10*3/uL (0.0-0.2); Basophils Percent Auto 0.8 % (0-2); Eosinophils Absolute Auto 0.4 X10*3/uL (0.0-0.4); Eosinophils Percent Auto 6.6 % (0-4); Hematocrit 38.5 % (37.0-47.0); Hemoglobin 12.3 g/dl (12.0-16.0); Imm Gran Abs Auto 0.03 X10*3/uL (0.00-0.03); Imm Gran Pct Auto 0.5 % (0.0-0.4); Lymphocytes Absolute Auto 1.4 X10*3/uL (1.2-4.9); Lymphocytes Percent Auto 22.1 % (20-40); Mean Corpuscular HGB Conc 31.9 g/dl (31.0-35.0); Mean Corpuscular Hemoglobin 26.9 pg (27.0-33.0); Mean Corpuscular Volume 84.2 fL (80.0-98.0); Mean Platelet Volume 11.2 fL (9.4-12.3); Monocytes Absolute Auto 0.8 X10*3/uL (0.1-1.2); Monocytes Percent Auto 12.3 % (2-11); Neutrophils Absolute Auto 3.6 x10*3/uL (2.0-8.3); Neutrophils Percent Auto 57.7 % (45-73); Platelet Count 192 X10*3/uL (160-400); Red Blood Count 4.57 X10*6/uL (4.20-5.50); Red Cell Distribution Width 14.3 % (11.0-16.0); White Blood Count 6.2 X10*3/uL (4.8-10.8)
[2023-11-21] MEDS: 0.9 % Sodium Chloride Flush 3 ML SYRINGE IVFLUSH (08:27)
[2023-11-21 08:37] LABS: Anion Gap 14 (12-20); Blood Urea Nitrogen 62 mg/dL (9-16); Calcium 9.5 mg/dL (8.4-10.2); Carbon Dioxide 24 mmol/L (22-29); Chloride 107 mmol/L (96-108); Estimated Glomerular Filt Rate 15; Glucose Random 78 mg/dL (60-115); Potassium 4.7 mmol/L (3.3-5.1); Sodium 140 mmol/L (135-145)
--- NOTE | 2023-11-21 09:23 | MHC.CM.PN ---
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 [facility] TO TRANSPORT
--- NOTE | 2023-11-21 10:11 | PHA.MEDREC ---
Pharmacy Consult ? Medication Reconciliation Pharmacy has completed the medication reconciliation. Spoke to patient who was a good historian. OF NOTE: patient was prescribed Solifenacin which the patient was taking for a kidney infection however the issue has resolved and she needs to speak to her PCP on whether she should continue it or not. Chose to leave it out as she has also not been taking it recently.
[2023-11-21 11:31] LABS: Glucose, Whole Blood 114 mg/dL (60-115)
[2023-11-21] MEDS: amLODIPine Besylate 10 MG TABLET PO (12:05)
[2023-11-21] MEDS: buPROPion HCl XL 150 MG TAB.ER.24H PO (12:05)
[2023-11-21] MEDS: carvediloL 25 MG TABLET PO ×2 (12:05→20:38)
[2023-11-21] MEDS: buPROPion HCl XL 300 MG TAB.ER.24H PO (12:05)
[2023-11-21] MEDS: 0.9 % Sodium Chloride 1,000 ML 100 ML IVCONT ×2 (12:06→23:02)
[2023-11-21] MEDS: Acetaminophen 325 MG TABLET 650 MG PO (12:53)
--- NOTE | 2023-11-21 13:11 | PM.CNNEP ---
History of Present Illness Reason for Consult Consult date: 11/21/23 Reason for consult: TIMOTHY Chief Complaint Chief complaint: Weakness History of Present Illness Narrative: 68-year-old female with hypertension, BRENNAN on CPAP, dxp-iuskdyq-imnvqyuoc diabetes mellitus, obesity who presented to the emergency department for evaluation of generalized weakness. She has been having malaise and generalized fatigability with poor p.o. intake for the last few days. She also admits that her family has told that she has been confused intermittently. Endorses change in color of urine and urinary hesitancy. No fever, chills, chest discomfort, palpitations, shortness of breath, abdominal pain, changes in bowel habits. In the emergency department, she was found to have TIMOTHY. Urine studies were concerning for UTI. She was admitted for further management. Nephrology has been consulted to assist in her clinical care during her current hospital stay Review of Systems Review of Systems Yes all other systems are reviewed and are negative PMFSH Past Medical History Medical History Hypothyroidism Type 2 diabetes mellitus Obstructive sleep apnea on CPAP Hyperlipidemia Essential hypertension Morbid obesity Surgical History Surgical History Hx of cholecystectomy Social History Social History Household Members: Spouse Housing: House Do you presently have visiting nurse or other home services: No Patient Tobacco Use Status: Never used Tobacco service: No Meds Allergies Allergy/AdvReac Type Severity Reaction Status Date / Time Sulfa (Sulfonamide Allergy Unknown HIVES Verified 11/20/23 19:40 Antibiotics) [SULFA (SULFONAMIDE ANTIBIOTICS)] Active Medications: Current Medications Acetaminophen (Acetaminophen 325 Mg Tablet) 650 mg PO Q6H PRN PRN Reason: Pain, Mild (Pain Scale 1-3), fever or headache Last Admin: 11/21/23 12:53 Dose: 650 mg Amlodipine Besylate (Amlodipine Besylate 10 Mg Tablet) 10 mg PO DAILY [facility]; Protocol Last Admin: 11/21/23 12:05 Dose: 10 mg Ascorbic Acid (Ascorbic Acid 500 Mg Tablet) 500 mg PO DAILY [facility] Bupropion HCl (Bupropion Hcl Xl 150 Mg Tab.Er.24h) 150 mg PO DAILY [facility] Last Admin: 11/21/23 12:05 Dose: 150 mg Bupropion HCl (Bupropion Hcl Xl 300 Mg Tab.Er.24h) 300 mg PO DAILY [facility] Last Admin: 11/21/23 12:05 Dose: 300 mg Calcium Carbonate (Calcium Carbonate 750 Mg Tab.Chew) 750 mg PO Q4H PRN PRN Reason: Heartburn Carvedilol (Carvedilol 25 Mg Tablet) 25 mg PO BID [facility]; Protocol Last Admin: 11/21/23 12:05 Dose: 25 mg Cyanocobalamin (Cyanocobalamin (Vitamin B-12) 100 Mcg Tablet) 50 mcg PO DAILY [facility] Dorzolamide HCl (Dorzolamide Hcl 2 % Ophth Danielle 10 Ml Drpbtl) 1 drop EYE-BOTH BID [facility] Enoxaparin Sodium (Enoxaparin Sodium 30 Mg/0.3 Ml Syringe) 30 mg SUBCUT Q24H [facility] Last Admin: 11/21/23 08:25 Dose: 30 mg Ferrous Sulfate (Ferrous Sulfate 324 Mg Tablet.Dr) 324 mg PO BID [facility] Glucose (Glucose Gel 15 Gm Gel..Gram.) 15 gm PO Q15M PRN; Protocol PRN Reason: per Hypoglycemia Standing Ord. Dextrose (D10) 250 mls @ 750 mls/hr IV Q15M PRN; Protocol PRN Reason: per Hypoglycemia Standing Ord. Ceftriaxone Sodium 1 gm/ (Sodium Chloride) 50 mls @ 100 mls/hr IV 2200 [facility] Last Infusion: 11/21/23 03:10 Dose: Infused Sodium Chloride (Ns) 1,000 mls @ 100 mls/hr IVCONT .Q10H [facility] Last Admin: 11/21/23 12:06 Dose: 100 mls/hr Insulin Human Lispro (Insulin Lispro 100 Unit/Ml 3 Ml Vial) 0 unit SUBCUT QIDACHS [facility]; Protocol Last Admin: 11/21/23 11:33 Dose: Not Given Latanoprost (Latanoprost 0.005 % Ophth Danielle 2.5 Ml Drops) 1 drop EYE-BOTH BEDTIME [facility] Levothyroxine Sodium (Levothyroxine Sodium 50 Mcg Tablet) 50 mcg PO MOTUWETHFRSA@0600 [facility] Levothyroxine Sodium (Levothyroxine Sodium 100 Mcg Tablet) 100 mcg PO Pierce@0600 [facility] Loratadine (Loratadine 10 Mg Tablet) 10 mg PO DAILY [facility] Magnesium Hydroxide (Milk Of Magnesia 30 Ml Oral.Susp) 30 ml PO DAILY PRN PRN Reason: Constipation Melatonin (Melatonin 3 Mg Tablet) 6 mg PO BEDTIME PRN PRN Reason: Insomnia Montelukast Sodium (Montelukast Sodium 10 Mg Tablet) 10 mg PO DAILY [facility] Ondansetron HCl (Ondansetron Hcl 4 Mg/2 Ml Vial) 4 mg IVPUSH Q8H PRN PRN Reason: Nausea and Vomiting Ropinirole HCl (Ropinirole Hcl 1 Mg Tablet) 1 mg PO DAILY [facility] Ropinirole HCl (Ropinirole Hcl 2 Mg Tablet) 2 mg PO BEDTIME [facility] Sertraline HCl (Sertraline Hcl 100 Mg Tablet) 200 mg PO DAILY [facility] Sodium Chloride (0.9 % Sodium Chloride Flush 3 Ml Syringe) 3 ml IVFLUSH [facility] Last Admin: 11/21/23 08:27 Dose: 3 ml Trazodone HCl (Trazodone Hcl 50 Mg Tablet) 250 mg PO BEDTIME [facility] Vitamin D (Cholecalciferol (Vitamin D3) 25 Mcg Tablet) 25 mcg PO DAILY [facility] Home Medications ?Medication ?Instructions ?Recorded ?Confirmed ?Last Taken ?Type amlodipine 10 mg tablet 10 mg PO DAILY 06/08/23 11/21/23 Unknown History bupropion HCl 150 mg 24 hr tablet, 150 mg PO DAILY 06/08/23 11/21/23 Unknown History extended release bupropion HCl 300 mg 24 hr tablet, 300 mg PO DAILY 06/08/23 11/21/23 Unknown History extended release carvedilol 25 mg tablet 25 mg PO BID 06/08/23 11/21/23 Unknown History dorzolamide 2 % eye drops 1 drp ophthalmic (eye) BID 06/08/23 11/21/23 Unknown History fenofibrate nanocrystallized 145 145 mg PO DAILY 06/08/23 11/21/23 Unknown History mg tablet ferrous gluconate 324 mg (38 mg 324 mg PO BID 06/08/23 11/21/23 Unknown History iron) tablet latanoprost 0.005 % eye drops 1 drp ophthalmic (eye) BEDTIME 06/08/23 11/21/23 Unknown History levothyroxine 50 mcg tablet 50 mcg PO MOTUWETHFRSA@0600 06/08/23 11/21/23 Unknown History lisinopril 40 mg tablet 40 mg PO DAILY 06/08/23 11/21/23 Unknown History loratadine 10 mg tablet 10 mg PO DAILY 06/08/23 11/21/23 Unknown History metformin 500 mg tablet,extended 500 mg PO BID 06/08/23 11/21/23 Unknown History release 24 hr montelukast 10 mg tablet 10 mg PO DAILY 06/08/23 11/21/23 Unknown History ropinirole 1 mg tablet 1 mg PO DAILY 06/08/23 11/21/23 Unknown History rosuvastatin 40 mg tablet 40 mg PO BEDTIME 06/08/23 11/21/23 Unknown History sertraline 100 mg tablet 200 mg PO DAILY 06/08/23 11/21/23 Unknown History tirzepatide 7.5 mg/0.5 mL 7.5 mg subcut MO 06/08/23 11/21/23 11/14/23 History subcutaneous pen injector (Nadya) trazodone 100 mg tablet 250 mg PO BEDTIME 06/08/23 11/21/23 Unknown History gabapentin 300 mg capsule 900 mg PO BEDTIME 06/09/23 11/21/23 Unknown History levothyroxine 50 mcg tablet 100 mcg PO PIERCE 06/09/23 11/21/23 Unknown History lutein 10 mg tablet 10 mg PO DAILY 06/09/23 11/21/23 Unknown History ropinirole 1 mg tablet 2 mg PO BEDTIME 06/09/23 11/21/23 Unknown History ascorbic acid (vitamin C) 500 mg 500 mg PO DAILY 11/21/23 11/21/23 Unknown History tablet (Vitamin C) cholecalciferol (vitamin D3) 25 25 mcg PO DAILY 11/21/23 11/21/23 Unknown History mcg (1,000 unit) tablet cyanocobalamin (vitamin B-12) 50 50 mcg PO DAILY 11/21/23 11/21/23 Unknown History mcg tablet omega 1-aux-eoy-fish oil 60 mg-90 1 cap PO DAILY 11/21/23 11/21/23 Unknown History mg-500 mg capsule (Fish Oil) Physical Exam Vital Signs: Last Vital Signs Temp 97.8 F 11/21/23 07:17 Pulse 60 11/21/23 11:54 Resp 16 11/21/23 07:17 BP 131/63 11/21/23 11:54 Pulse Ox 96 08/05/24 08:18 O2 Del Method Room Air 11/21/23 07:17 BMI result Body Mass Index 47.4 Const General: no acute distress Eyes EOM: EOMs intact bilaterally Neck Neck: Yes supple Resp Auscultation: diminished lung sounds Cardio Rate: regular rate GI Palpation (GI): Soft to palpation Neuro General: moves all extremities Results Lab Results 11/21/23 07:47 11/21/23 07:47 Lab results: Chemistry 11/20/23 11/21/23 20:28 07:47 Sodium 139 140 Potassium 5.6 H D 4.7 Carbon Dioxide 20 L 24 BUN 69 H 62 H Creatinine 4.34 H* 3.17 H Calcium 9.7 9.5 Hematology 11/20/23 11/21/23 20:28 07:47 WBC 7.6 6.2 Hgb 13.0 12.3 Plt Count 244 192 Urinalysis 11/20/23 20:25 Urine Color Dark Yellow Urine Appearance Cloudy Urine pH 5.0 Ur Specific [place] 1.025 Urine Protein 30 (1+) H Urine Glucose (UA) Negative Urine Ketones Trace Urine Blood Negative Urine Nitrite Negative Ur Leukocyte Esterase Moderate (2+) H Urine RBC 3-5 H Urine WBC 11-20 H Ur Squamous Epith Cells 11-20 Hyaline Casts >20 Assessment and Plan (1) TIMOTHY (acute kidney injury): Status: Acute Plan TIMOTHY due to compromise in renal perfusion Likely had altered autoregulation in kidney given she was on ACEI No reason to suspect AIN/ GN; If creatinine had to go up, would check C3/C4 No obstruction by imaging. No ACEI/ARB/NSAID's for now Has renal calculi by imaging; No indication for renal replacement C/W rest of current management for now; Labs AM Procedures Date of Service Date of Service: 11/21/23
[2023-11-21] MEDS: Dorzolamide HCl 2 % Ophth Sol 10 ML DRPBTL 1 DROP EYE-BOTH ×2 (14:45→20:38)
[2023-11-21 16:11] LABS: Glucose, Whole Blood 122 mg/dL (60-115)
[2023-11-21 20:07] LABS: Glucose, Whole Blood 78 mg/dL (60-115)
[2023-11-21] MEDS: traZODone HCL 50 MG TABLET 250 MG PO (20:38)
[2023-11-21] MEDS: rOPINIRole HCL 2 MG TABLET PO (20:38)
[2023-11-21] MEDS: Latanoprost 0.005 % Ophth Sol 2.5 ML DROPS 1 DROP EYE-BOTH (20:38)
[2023-11-21] MEDS: Ferrous Sulfate 324 MG TABLET.DR PO (20:38)
[2023-11-22 00:41] VITALS: RESP 18
[2023-11-22 03:49] VITALS: BP 101/54; PULSE 53; RESP 20; TEMP 36.3; O2SAT 93
[2023-11-22] MEDS: Levothyroxine Sodium 50 MCG TABLET PO (06:05)
[2023-11-22 06:55] LABS: Anion Gap 14 (12-20); Blood Urea Nitrogen 49 mg/dL (9-16); Calcium 9.8 mg/dL (8.4-10.2); Carbon Dioxide 22 mmol/L (22-29); Chloride 112 mmol/L (96-108); Creatinine Clr Calc Pharmacy 46.5; Estimated Glomerular Filt Rate 33; Glucose Random 84 mg/dL (60-115); Potassium 4.6 mmol/L (3.3-5.1); Sodium 143 mmol/L (135-145); Thyroid Stimulating Hormone 1.58 uIU/mL (0.32-4.0)
[2023-11-22 07:21] VITALS: BP 123/58; PULSE 58; RESP 16; TEMP 36.3; O2SAT 95
[2023-11-22] MEDS: buPROPion HCl XL 300 MG TAB.ER.24H PO (07:52)
[2023-11-22] MEDS: rOPINIRole HCL 1 MG TABLET PO (07:52)
[2023-11-22] MEDS: Ascorbic Acid 500 MG TABLET PO (07:52)
[2023-11-22] MEDS: Loratadine 10 MG TABLET PO (07:52)
[2023-11-22] MEDS: carvediloL 25 MG TABLET PO ×2 (07:52→21:01)
[2023-11-22] MEDS: Ferrous Sulfate 324 MG TABLET.DR PO ×2 (07:53→21:01)
[2023-11-22] MEDS: Cyanocobalamin (Vitamin B-12) 100 MCG TABLET 50 MCG PO (07:53)
[2023-11-22] MEDS: Montelukast Sodium 10 MG TABLET PO (07:53)
[2023-11-22] MEDS: Sertraline HCL 100 MG TABLET 200 MG PO (07:53)
[2023-11-22] MEDS: buPROPion HCl XL 150 MG TAB.ER.24H PO (07:53)
[2023-11-22] MEDS: amLODIPine Besylate 10 MG TABLET PO (07:53)
[2023-11-22] MEDS: Cholecalciferol (Vitamin D3) 25 MCG TABLET PO (07:54)
[2023-11-22] MEDS: Enoxaparin Sodium 30 MG/0.3 ML SYRINGE SUBCUT (07:54)
[2023-11-22 07:55] LABS: Glucose, Whole Blood 87 mg/dL (60-115)
[2023-11-22] MEDS: Dorzolamide HCl 2 % Ophth Sol 10 ML DRPBTL 1 DROP EYE-BOTH ×2 (08:46→21:01)
[2023-11-22] MEDS: 0.9 % Sodium Chloride 1,000 ML 100 ML IVCONT ×2 (08:47→21:03)
[2023-11-22 11:20] LABS: Glucose, Whole Blood 105 mg/dL (60-115)
[2023-11-22] MEDS: Acetaminophen 325 MG TABLET 650 MG PO ×2 (12:08→19:26)
--- NOTE | 2023-11-22 12:58 | P.PNNP_ITS ---
Subjective Subjective Date of Service: 11/22/23 Interval history: Events noted. All recent data reviewed. Renal functions improving. Physical Exam 2 Vital Signs: Vital Signs: Last Vital Signs Temp 97.4 F 11/22/23 07:21 Pulse 58 11/22/23 07:21 Resp 16 11/22/23 07:21 BP 123/58 L 11/22/23 07:21 Pulse Ox 95 11/22/23 07:21 O2 Del Method Room Air 11/22/23 07:21 BMI result Body Mass Index 47.4 Const: General: no acute distress Eyes: EOM: EOMs intact bilaterally Neck: Neck: Yes supple Resp: Auscultation: diminished lung sounds Cardio: Rate: regular rate GI: Palpation (GI): Soft to palpation Neuro: General: moves all extremities Objective Data Labs 11/21/23 07:47 11/22/23 05:34 Labs: Laboratory Results - last 24 hr 11/21/23 11/21/23 11/22/23 15:44 19:48 05:34 Hold Purple Top SEE NOTE Sodium 143 Potassium 4.6 Chloride 112 H Carbon Dioxide 22 Anion Gap 14 BUN 49 H Creatinine 1.57 H Estim Creat Clear Calc 46.5 Estimated GFR 33 POC Glucose 122 H 78 Random Glucose 84 Calcium 9.8 TSH 1.58 11/22/23 11/22/23 07:43 11:07 Hold Purple Top Sodium Potassium Chloride Carbon Dioxide Anion Gap BUN Creatinine Estim Creat Clear Calc Estimated GFR POC Glucose 87 105 Random Glucose Calcium TSH Microbiology Microbiology Results: Microbiology 11/20/23 Unknown Urine clean catch - Clean Catch Midstream Urine Culture - Final Procedures Date of Service Date of Service: 11/22/23 Assessment & Plan Assessment and plan (1) TIMOTHY (acute kidney injury): Status: Acute Plan TIMOTHY due to compromise in renal perfusion-improving Likely had altered autoregulation in kidney given she was on ACEI No reason to suspect AIN/ GN;Has renal calculi by imaging No obstruction by imaging. No ACEI/ARB/NSAID's for now C/W rest of current management for now; Labs AM Progress Note: Quality Stroke Does the patient have a stroke diagnosis?: No
[2023-11-22] MEDS: ondansetron HCL 4 MG/2 ML VIAL IVPUSH ×2 (13:58→21:49)
[2023-11-22 15:11] VITALS: BP 134/61; PULSE 61; RESP 18; TEMP 36.2; O2SAT 95
[2023-11-22 16:14] LABS: Glucose, Whole Blood 96 mg/dL (60-115)
--- NOTE | 2023-11-22 16:39 | HO.PM.IMPN ---
Subjective Subjective Date of Service: 11/22/23 Interval History: follow up for timothy, uti, encephalopathy Review of Systems Mental status improved, Has some frequency but no other symptoms Creatinine improving. Physical Exam Vital Signs: Vital Signs: Last Vital Signs Temp 97.1 F 11/22/23 15:11 Pulse 61 11/22/23 15:11 Resp 18 11/22/23 15:11 BP 134/61 11/22/23 15:11 Pulse Ox 95 11/22/23 15:11 O2 Del Method Room Air 11/22/23 15:11 BMI result Body Mass Index 47.4 Appearance: Alert.? Oriented X3.? cvs: rrr, [id number] . res: clear to auscultation ,no rhonchii or wheezing abd: no rebound or guarding ,nt, bs present. ext pulses present , no cyanosis . neuro: axo3 , nonfocal. Objective Data Active Medications Acetaminophen (Acetaminophen 325 Mg Tablet) 650 mg PO Q6H PRN PRN Reason: Pain, Mild (Pain Scale 1-3), fever or headache Last Admin: 11/22/23 12:08 Dose: 650 mg Documented By: SISSY Amlodipine Besylate (Amlodipine Besylate 10 Mg Tablet) 10 mg PO DAILY [facility]; Protocol Last Admin: 11/22/23 07:53 Dose: 10 mg Documented By: SISSY Ascorbic Acid (Ascorbic Acid 500 Mg Tablet) 500 mg PO DAILY [facility] Last Admin: 11/22/23 07:52 Dose: 500 mg Documented By: SISSY Bupropion HCl (Bupropion Hcl Xl 150 Mg Tab.Er.24h) 150 mg PO DAILY [facility] Last Admin: 11/22/23 07:53 Dose: 150 mg Documented By: SISSY Bupropion HCl (Bupropion Hcl Xl 300 Mg Tab.Er.24h) 300 mg PO DAILY [facility] Last Admin: 11/22/23 07:52 Dose: 300 mg Documented By: SISSY Calcium Carbonate (Calcium Carbonate 750 Mg Tab.Chew) 750 mg PO Q4H PRN PRN Reason: Heartburn Carvedilol (Carvedilol 25 Mg Tablet) 25 mg PO BID [facility]; Protocol Last Admin: 11/22/23 07:52 Dose: 25 mg Documented By: SISSY Cyanocobalamin (Cyanocobalamin (Vitamin B-12) 100 Mcg Tablet) 50 mcg PO DAILY [facility] Last Admin: 11/22/23 07:53 Dose: 50 mcg Documented By: SISSY Dorzolamide HCl (Dorzolamide Hcl 2 % Ophth Danielle 10 Ml Drpbtl) 1 drop EYE-BOTH BID [facility] Last Admin: 11/22/23 08:46 Dose: 1 drop Documented By: SISSY Enoxaparin Sodium (Enoxaparin Sodium 30 Mg/0.3 Ml Syringe) 40 mg SUBCUT Q24H [facility] Ferrous Sulfate (Ferrous Sulfate 324 Mg Tablet.Dr) 324 mg PO BID [facility] Last Admin: 11/22/23 07:53 Dose: 324 mg Documented By: SISSY Glucose (Glucose Gel 15 Gm Gel..Gram.) 15 gm PO Q15M PRN; Protocol PRN Reason: per Hypoglycemia Standing Ord. Dextrose (D10) 250 mls @ 750 mls/hr IV Q15M PRN; Protocol PRN Reason: per Hypoglycemia Standing Ord. Ceftriaxone Sodium 1 gm/ (Sodium Chloride) 50 mls @ 100 mls/hr IV 2200 [facility] Last Infusion: 11/21/23 21:10 Dose: Infused Documented By: YOSHI Sodium Chloride (Ns) 1,000 mls @ 80 mls/hr IVCONT .[id number] [facility] Last Admin: 11/22/23 08:47 Dose: 100 mls/hr Documented By: SISSY Insulin Human Lispro (Insulin Lispro 100 Unit/Ml 3 Ml Vial) 0 unit SUBCUT QIDACHS [facility]; Protocol Last Admin: 11/22/23 11:39 Dose: Not Given Documented By: SISSY Non-Admin Reason: No Insulin Coverage Latanoprost (Latanoprost 0.005 % Ophth Danielle 2.5 Ml Drops) 1 drop EYE-BOTH BEDTIME [facility] Last Admin: 11/21/23 20:38 Dose: 1 drop Documented By: YOSHI Levothyroxine Sodium (Levothyroxine Sodium 50 Mcg Tablet) 50 mcg PO MOTUWETHFRSA@0600 [facility] Last Admin: 11/22/23 06:05 Dose: 50 mcg Documented By: YOSHI Levothyroxine Sodium (Levothyroxine Sodium 100 Mcg Tablet) 100 mcg PO Kaplan@0600 [facility] Loratadine (Loratadine 10 Mg Tablet) 10 mg PO DAILY [facility] Last Admin: 11/22/23 07:52 Dose: 10 mg Documented By: SISSY Magnesium Hydroxide (Milk Of Magnesia 30 Ml Oral.Susp) 30 ml PO DAILY PRN PRN Reason: Constipation Melatonin (Melatonin 3 Mg Tablet) 6 mg PO BEDTIME PRN PRN Reason: Insomnia Montelukast Sodium (Montelukast Sodium 10 Mg Tablet) 10 mg PO DAILY [facility] Last Admin: 11/22/23 07:53 Dose: 10 mg Documented By: SISSY Ondansetron HCl (Ondansetron Hcl 4 Mg/2 Ml Vial) 4 mg IVPUSH Q8H PRN PRN Reason: Nausea and Vomiting Last Admin: 11/22/23 13:58 Dose: 4 mg Documented By: SISSY Ropinirole HCl (Ropinirole Hcl 1 Mg Tablet) 1 mg PO DAILY [facility] Last Admin: 11/22/23 07:52 Dose: 1 mg Documented By: SISSY Ropinirole HCl (Ropinirole Hcl 2 Mg Tablet) 2 mg PO BEDTIME [facility] Last Admin: 11/21/23 20:38 Dose: 2 mg Documented By: YOSHI Sertraline HCl (Sertraline Hcl 100 Mg Tablet) 200 mg PO DAILY [facility] Last Admin: 11/22/23 07:53 Dose: 200 mg Documented By: SISSY Sodium Chloride (0.9 % Sodium Chloride Flush 3 Ml Syringe) 3 ml IVFLUSH QSHIFT [facility] Last Admin: 11/22/23 14:01 Dose: Not Given Documented By: SISSY Non-Admin Reason: IV Running Trazodone HCl (Trazodone Hcl 50 Mg Tablet) 250 mg PO BEDTIME [facility] Last Admin: 11/21/23 20:38 Dose: 250 mg Documented By: YOSHI Vitamin D (Cholecalciferol (Vitamin D3) 25 Mcg Tablet) 25 mcg PO DAILY [facility] Last Admin: 11/22/23 07:54 Dose: 25 mcg Documented By: SISSY Labs 11/21/23 07:47 11/22/23 05:34 Labs: Laboratory Results - last 24 hr 11/21/23 11/22/23 11/22/23 19:48 05:34 07:43 Hold Purple Top SEE NOTE Anion Gap 14 Estim Creat Clear Calc 46.5 Estimated GFR 33 POC Glucose 78 87 Random Glucose 84 Calcium 9.8 TSH 1.58 11/22/23 11/22/23 11:07 16:02 Hold Purple Top Anion Gap Estim Creat Clear Calc Estimated GFR POC Glucose 105 96 Random Glucose Calcium TSH Microbiology Microbiology Results: Microbiology 11/20/23 Unknown Urine Culture - Final Urine clean catch - Clean Catch Midstream Assessment and Plan (1) TIMOTHY (acute kidney injury): Status: Acute Plan 68-year-old female with pertinent history of hypertension, mixed hyperlipidemia, BRENNAN on CPAP, hypothyroidism, mood disorder, ccl-fbmegku-leidrazoc diabetes mellitus, obesity who presents to the emergency department for admitted for further management of TIMOTHY, UTI with acute encephalopathy Acute kidney injury with ?background ckd no obstructing stones or hydronephrosis seen on CT creatinine 4.34-3.17-1.57 continue ivf,avoid nephrotoxins, low-sodium diet,monitor I&O follow renal function/lytes Acute metabolic encephalopathy in the setting of above and ?UTI mental status improved continue IV ceftriaxone (initiated 11/19),follow cultures -urine culture -mixed angelica ,repeat urine cultures added. Hyperkalemia due to TIMOTHY Lokelma given in the ER,resolved Hypertension continue carvedilol, amlodipine. Hold lisinopril in setting of TIMOTHY hyperlipidemia hold statin and fenofibrate due to TIMOTHY BRENNAN-Continue CPAP at bedtime Zxt-itshpon-xmvstiszv diabetes mellitus without hyperglycemia -POC glucose, diabetic diet -Humalog on sliding scale -hold metformin, Mounjaro mood disorder-continue home medications. hypothyroidism-euthyroid, continue current dose of levothyroxine DVT prophylaxis: s/c Lovenox Patient requires ongoing inpatient stay due to acute UTI with metabolic encephalopathy and TIMOTHY requiring IV fluid resuscitation, IV antibiotics and close monitoring of renal functio Quality Stroke Does the patient have a stroke diagnosis?: No VTE Prior VTE?: No VTE Risk Level:: Medical - moderate - high VTE Device Contraindication: Treatment Not Indicated VTE Drug Contraindication: N/A - Med Ordered
[2023-11-22 19:14] VITALS: BP 149/62; PULSE 60; RESP 18; TEMP 36.2; O2SAT 93
[2023-11-22] MEDS: Calcium Carbonate 750 MG TAB.CHEW PO (19:26)
[2023-11-22 19:57] LABS: Glucose, Whole Blood 113 mg/dL (60-115)
[2023-11-22] MEDS: traZODone HCL 50 MG TABLET 250 MG PO (21:01)
[2023-11-22] MEDS: rOPINIRole HCL 2 MG TABLET PO (21:01)
[2023-11-22] MEDS: cefTRIAXone sodium 1 GM in 0.9 % Sodium Chloride 50 ML IV (21:02)
[2023-11-22] MEDS: Latanoprost 0.005 % Ophth Sol 2.5 ML DROPS 1 DROP EYE-BOTH (21:02)
[2023-11-22 22:57] VITALS: PULSE 53; RESP 20; O2SAT 93
[2023-11-23] MEDS: Melatonin 3 MG TABLET 6 MG PO (02:22)
[2023-11-23 02:45] VITALS: BP 162/88; PULSE 54; RESP 18; TEMP 36.2; O2SAT 95
[2023-11-23] MEDS: Levothyroxine Sodium 50 MCG TABLET PO (05:58)
[2023-11-23 06:55] VITALS: BP 149/69; PULSE 58; RESP 16; TEMP 36.6; O2SAT 95
[2023-11-23 07:11] LABS: Glucose, Whole Blood 81 mg/dL (60-115)
[2023-11-23] MEDS: Montelukast Sodium 10 MG TABLET PO (08:07)
[2023-11-23] MEDS: Cholecalciferol (Vitamin D3) 25 MCG TABLET PO (08:07)
[2023-11-23] MEDS: amLODIPine Besylate 10 MG TABLET PO (08:07)
[2023-11-23] MEDS: carvediloL 25 MG TABLET PO (08:07)
[2023-11-23] MEDS: Loratadine 10 MG TABLET PO (08:07)
[2023-11-23] MEDS: rOPINIRole HCL 1 MG TABLET PO (08:08)
[2023-11-23] MEDS: Acetaminophen 325 MG TABLET 650 MG PO (08:09)
[2023-11-23] MEDS: Cyanocobalamin (Vitamin B-12) 100 MCG TABLET 50 MCG PO (08:09)
[2023-11-23] MEDS: Ascorbic Acid 500 MG TABLET PO (08:09)
[2023-11-23] MEDS: Ferrous Sulfate 324 MG TABLET.DR PO (08:10)
[2023-11-23] MEDS: Dorzolamide HCl 2 % Ophth Sol 10 ML DRPBTL 1 DROP EYE-BOTH (08:15)
[2023-11-23] MEDS: Enoxaparin Sodium 40 MG/0.4 ML SYRINGE SUBCUT (08:16)
[2023-11-23 10:43] LABS: Anion Gap 13 (12-20); Blood Urea Nitrogen 27 mg/dL (9-16); Calcium 10.3 mg/dL (8.4-10.2); Carbon Dioxide 25 mmol/L (22-29); Chloride 111 mmol/L (96-108); Creatinine Clr Calc Pharmacy 70.2; Estimated Glomerular Filt Rate 53; Glucose Random 108 mg/dL (60-115); Potassium 5.3 mmol/L (3.3-5.1); Sodium 144 mmol/L (135-145)
[2023-11-23 11:24] LABS: Glucose, Whole Blood 101 mg/dL (60-115)
--- NOTE | 2023-11-23 11:46 | MHC.CM.PN ---
IMM 11/23/23 Patient is discharged today to home self care. She has arranged for transportation home.
[2023-11-23] MEDS: Sodium Zirconium Cyclosilicate 5 GM POWD.PACK PO (11:47)
--- NOTE | 2023-11-23 11:59 | PM.DS ---
DS: Providers Provider Date of Service: 11/23/23 Date of admission: 11/21/23 00:04 Date of discharge: 11/23/23 Primary care physician: Marine Saucedo MD Consults: 11/21/23 13:06 Consult to Nephrology Routine Consulting Provider: [facility] [place] [facility] Reason for consultation: timothy, significant drop in gfr DS: Diagnosis Discharge Diagnosis (1) TIMOTHY (acute kidney injury): Status: Acute DS: Summary Hospital Course Hospital Course: 68-year-old female with pertinent history of hypertension, mixed hyperlipidemia, BRENNAN on CPAP, hypothyroidism, mood disorder, bgw-cbqiyjq-rrsleqppi diabetes mellitus, obesity who presents to the emergency department for evaluation of generalized weakness. Patient states she was sent to the ER by her family who noticed that she was weak. Patient endorses malaise and generalized fatigability. Patient admits poor p.o. intake for the last few days. She also admits that her family has told that she has been confused intermittently. Endorses change in color of urine and urinary hesitancy. No fever, chills, chest discomfort, palpitations, shortness of breath, abdominal pain, changes in bowel habits. In the emergency department, creatinine found to be elevated. Urine concerning for UTI. Patient was resuscitated with IV crystalloids and given IV Rocephine. Hospital course: Time Attestation Total time managing care of this patient today: 40 mintues. Discharge Coordination Time (in mins): 40 min Quality: Safe Use of Opioids Does Pt have an Active Cancer Diagnosis on the Problem List?: No Quality: Stroke Does the patient have a stroke diagnosis?: No Physical Exam Vital Signs: Vital Signs: Last Vital Signs Temp 98 F 11/23/23 06:55 Pulse 58 11/23/23 06:55 Resp 16 11/23/23 06:55 BP 149/69 H 11/23/23 06:55 Pulse Ox 95 11/23/23 06:55 O2 Del Method Room Air 11/23/23 06:55 BMI result Body Mass Index 47.4 Appearance: Alert.? Oriented X3.? cvs: rrr, [id number] . res: clear to auscultation ,no rhonchii or wheezing abd: no rebound or guarding ,nt, bs present. ext pulses present , no cyanosis . neuro: axo3 , nonfocal. DS: Data Data Completed and Pending Labs on day of discharge: Laboratory Results - last 24 hr 11/22/23 11/22/23 11/23/23 16:02 19:44 06:55 Sodium Potassium Chloride Carbon Dioxide Anion Gap BUN Creatinine Estim Creat Clear Calc Estimated GFR POC Glucose 96 113 81 Random Glucose Calcium 11/23/23 11/23/23 10:05 11:03 Sodium 144 Potassium 5.3 H Chloride 111 H Carbon Dioxide 25 Anion Gap 13 BUN 27 H Creatinine 1.04 Estim Creat Clear Calc 70.2 Estimated GFR 53 POC Glucose 101 Random Glucose 108 Calcium 10.3 H Imaging Chest x-ray: Radiologist's impression: ITS Impressions Abdomen/Pelvis CT 11/20/23 21:30 IMPRESSION: No hydronephrosis or obstructing calculus identified. Few bilateral renal calculi. Discharge Plan Discharge Anticipated Discharge Date/Time: 11/23/23 11:34 Patient Disposition: Home, Self-Care Discharge Diagnosis: TIMOTHY, UTI, toxic metabolic encephalopathy. Referrals: Marine Saucedo MD [Primary Care Provider] - 1 Week Discharge Medications: New cefuroxime axetil 500 mg tablet 500 mg PO BID Qty: 10 0RF Continued latanoprost 0.005 % drops 1 drp ophthalmic (eye) BEDTIME carvedilol 25 mg tablet 25 mg PO BID ropinirole 1 mg tablet 1 mg PO DAILY trazodone 100 mg tablet 250 mg PO BEDTIME amlodipine 10 mg tablet 10 mg PO DAILY levothyroxine 50 mcg tablet 50 mcg PO MOTUWETHFRSA@0600 loratadine 10 mg tablet 10 mg PO DAILY dorzolamide 2 % drops 1 drp ophthalmic (eye) BID rosuvastatin 40 mg tablet 40 mg PO BEDTIME Hold Instructions: Resume on 06/21/23. bupropion HCl 300 mg tablet extended release 24 hr 300 mg PO DAILY bupropion HCl 150 mg tablet extended release 24 hr 150 mg PO DAILY fenofibrate nanocrystallized 145 mg tablet 145 mg PO DAILY Hold Instructions: Resume on 06/21/23. ferrous gluconate 324 mg (38 mg iron) tablet 324 mg PO BID Mounjaro 7.5 mg/0.5 mL pen injector 7.5 mg subcut MO metformin 500 mg tablet extended release 24 hr 500 mg PO BID sertraline 100 mg tablet 200 mg PO DAILY montelukast 10 mg tablet 10 mg PO DAILY ropinirole 1 mg tablet 2 mg PO BEDTIME levothyroxine 50 mcg tablet 100 mcg PO PIERCE gabapentin 300 mg capsule 900 mg PO BEDTIME lutein 10 mg Tablet 10 mg PO DAILY Rx Instructions: give with meal/snack cyanocobalamin (vitamin B-12) 50 mcg Tablet 50 mcg PO DAILY ascorbic acid (vitamin C) [Vitamin C] 500 mg Tablet 500 mg PO DAILY cholecalciferol (vitamin D3) 25 mcg (1,000 unit) Tablet 25 mcg PO DAILY omega 9-zqa-gei-fish oil [Fish Oil] 60-90-500 mg Capsule 1 cap PO DAILY Discontinued lisinopril 40 mg tablet 40 mg PO DAILY Discharge Orders: Discharge Order (Routine); Ordered 11/23/23 Ordered By: Sal Hernandez Diet: Advance to usual diet Activity on Discharge: As tolerated Stand Alone Forms: Patient Portal Discharge page Print Language: Nepali Other Ambulatory Orders: Basic Metabolic Panel (Routine) Timeframe: 1 Week Facility: [facility] - Location: Laboratory Ordered By: Sal Hernandez Care Plan Goals: Patient was admitted for generalized weakness and decreased p.o. intake for few days, also has some urinary frequency: Patient was admitted for TIMOTHY, possible UTI and toxic metabolic encephalopathy-patient was started on IV hydration, antibiotics, urine culture sent, lisinopril was stopped due to TIMOTHY and mild hyperkalemia. With above supportive care patient seems to be improved significantly, mentation seems to be improved to baseline, creatinine also seems fine 1.04 . Hypertension- Blood pressure is fluctuating: Continue amlodipine 10 mg for now, consider adding another hypertensive outpatient if needed per PCP. Patient was strongly advised for hydration, monitor renal function electrolytes in 1 week outpatient. Low-potassium diet patient. Health Concerns: Monitor BMP in 1 week. hold lisinopril 20 repeat BMP and further use out patiently as per PCP. Consider outpatient Nephrology follow-up. Plan of Treatment: As above. Assessment: As above.
[2023-11-23] MEDS: cefuroxime axetiL 500 MG TABLET PO (12:20)
--- NOTE | 2023-11-23 12:41 | P.PNNP_ITS ---
Subjective Subjective Date of Service: 11/23/23 Interval history: Events noted. All recent data reviewed. Renal functions getting close to baseline Physical Exam 2 Vital Signs: Vital Signs: Last Vital Signs Temp 98 F 11/23/23 06:55 Pulse 58 11/23/23 06:55 Resp 16 11/23/23 06:55 BP 149/69 H 11/23/23 06:55 Pulse Ox 95 11/23/23 06:55 O2 Del Method Room Air 11/23/23 06:55 BMI result Body Mass Index 47.4 Const: General: comfortable and no acute distress O rientation/consciousness: patient oriented x3 HEENT: Head: Yes normocephalic Mouth: Normal oral and palatal mucosa present Eyes: EOM: EOMs intact bilaterally Neck: Neck: Yes supple Resp: Auscultation: clear to auscultation bilaterally Cardio: Jugular venous distension: no JVD Rate: regular rate GI: Palpation (GI): Soft to palpation Auscultation: normal bowel sounds : General: Yes no CVA tenderness Back/Spine/Pelvis: Back: no CVA tenderness Skin: General skin exam: no rashes or lesions noted Neuro: General: patient oriented x3 and moves all extremities Extrem: General: Yes no pedal edema Objective Data Labs 11/21/23 07:47 11/23/23 10:05 Labs: Laboratory Results - last 24 hr 11/22/23 11/22/23 11/23/23 16:02 19:44 06:55 Sodium Potassium Chloride Carbon Dioxide Anion Gap BUN Creatinine Estim Creat Clear Calc Estimated GFR POC Glucose 96 113 81 Random Glucose Calcium 11/23/23 11/23/23 10:05 11:03 Sodium 144 Potassium 5.3 H Chloride 111 H Carbon Dioxide 25 Anion Gap 13 BUN 27 H Creatinine 1.04 Estim Creat Clear Calc 70.2 Estimated GFR 53 POC Glucose 101 Random Glucose 108 Calcium 10.3 H Microbiology Microbiology Results: Microbiology 11/22/23 10:04 Urine clean catch - Clean Catch Midstream Urine Culture - Final No growth. 11/20/23 Unknown Urine clean catch - Clean Catch Midstream Urine Culture - Final Procedures Date of Service Date of Service: 11/23/23 Assessment & Plan Assessment and plan (1) TIMOTHY (acute kidney injury): Status: Acute Plan TIMOTHY due to compromise in renal perfusion-improving; ACEI on hold Likely had altered autoregulation in kidney given she was on ACEI No reason to suspect AIN/ GN;Has renal calculi by imaging No obstruction by imaging. No ACEI/ARB/NSAID's for now C/W rest of current management for now Needs F/U with [facility] in 1 month Progress Note: Quality Stroke Does the patient have a stroke diagnosis?: No
== END 2023-11-23 12:59 | disposition home or self-care (01) | DRG 689 ==
LOC: HO.ED 23:55 → HO.EDOVER 11-21 00:10 → HO.S3 11-21 03:22
PROVIDERS: Physician Assistant; Physician Assistant Medical; Admitting Provider Student in an Organized Health Care Education/Training Program; Emergency Provider Internal Medicine; PCP Family Medicine; Visit Provider Internal Medicine
DX: N39.0 Urinary tract infection, site not specified (principal); G92.8 Other toxic encephalopathy; N17.0 Acute kidney failure with tubular necrosis; Z68.42 Body mass index [BMI] 45.0-49.9, adult; I10 Essential (primary) hypertension; E03.9 Hypothyroidism, unspecified; E66.9 Obesity, unspecified; E87.5 Hyperkalemia; G47.33 Obstructive sleep apnea (adult) (pediatric); E78.2 Mixed hyperlipidemia; Z20.822 Contact with and (suspected) exposure to COVID-19; Z79.84 Long term (current) use of oral hypoglycemic drugs; Z79.890 Hormone replacement therapy; Z79.899 Other long term (current) drug therapy
CPT/HCPCS: 0241U; 36415; 74176; 80048; 80076; 81001; 81003; 82803; 82947; 83605; 84443; 84484; 85025; 87086; 93005; 94660; 97161; 99285; J0696; J1650; J2405

== ENCOUNTER → 2023-11-20 19:43 | Outpatient (BNV) | payer OTHER, SELFPAY | PROVIDERS: Admitting Provider Student in an Organized Health Care Education/Training Program; Emergency Provider Internal Medicine; PCP Family Medicine; Visit Provider Internal Medicine Cardiovascular Disease | DX: R53.1 Weakness (principal) | CPT/HCPCS: 93010 ==

== ENCOUNTER → 2023-11-21 00:04 | Outpatient (BNV) | payer OTHER, SELFPAY | PROVIDERS: Admitting Provider Student in an Organized Health Care Education/Training Program; Emergency Provider Internal Medicine; PCP Family Medicine; Visit Provider Student in an Organized Health Care Education/Training Program | DX: N17.9 Acute kidney failure, unspecified (principal) | CPT/HCPCS: 99223; 99232; 99239; 99499 ==

== ENCOUNTER → 2023-11-21 00:04 | Outpatient (BNV) | payer OTHER, SELFPAY | PROVIDERS: Admitting Provider Student in an Organized Health Care Education/Training Program; Emergency Provider Internal Medicine; PCP Family Medicine; Visit Provider Internal Medicine Nephrology | DX: N17.9 Acute kidney failure, unspecified (principal) | CPT/HCPCS: 99223; 99232 ==

== ENCOUNTER 2024-01-04 22:49 | Emergency (ER) | payer OTHER, SELFPAY ==
--- NOTE | ~2024-01-04 | CT_ITS ---
EXAMINATION: CT ABDOMEN AND PELVIS WITHOUT CONTRAST CLINICAL INFORMATION: Right renal colic. COMPARISON: November 20, 2023. TECHNIQUE: Multidetector volumetric imaging was performed from the superior aspect of the liver through the pubic symphysis. Sagittal and coronal reformatted images were obtained on the technologist's workstation. This CT examination was performed using dose optimization techniques as appropriate, variously including the following: *Automated exposure control *Adjustment of mA and/or kV according to patient size (this includes techniques or standardized protocols for targeted exams where dose is matched to indication/reason for exam; i.e. extremities or head) *Use of iterative reconstruction technique DLP: 1063 mGy-cm FINDINGS: LUNG BASES: The visualized lung bases are unremarkable. LIVER, GALLBLADDER, AND BILIARY TREE: The liver is normal in size, shape, and attenuation. No focal hepatic lesion or biliary ductal dilatation is present. There has been a prior cholecystectomy. PANCREAS: Unremarkable. SPLEEN: Unremarkable. ADRENAL GLANDS: There is a stable 2.9 cm low-density left adrenal nodule. KIDNEYS AND URETERS: The kidneys are normal in size, shape, and attenuation. There is an 8 mm nonobstructing calculus lower pole right kidney partially extending to the lower pole left renal calyx. There is a 3 mm nonobstructing calculus lower pole left kidney. A 2.1 cm cyst upper pole left kidney. There is no hydronephrosis or hydroureter. BLADDER: Unremarkable. GASTROINTESTINAL TRACT: There is retained stool throughout the colon. The appendix is visualized and is within normal limits. ABDOMINAL WALL: No significant hernia is appreciated. LYMPH NODES: Normal. VASCULAR: There is moderate atherosclerotic plaque of the abdominal aorta. PELVIC VISCERA: Unremarkable. OSSEOUS STRUCTURES: There is diffuse thoracolumbar disc and facet degenerative change. CT/CT abdomen pelvis wo IV con IMPRESSION: Bilateral nonobstructing renal calculi. No hydronephrosis. No acute intra-abdominal process. Fleischner guidelines were followed. Electronically signed by: Jerry Castillo MD 01/05/2024 01:27 AM EDT
[2024-01-04 22:58] VITALS: BP 164/82; PULSE 70; O2SAT 98
[2024-01-04 22:59] VITALS: BP 142/75; PULSE 68; RESP 20; TEMP 36.8; O2SAT 99; BMI 41.0
[2024-01-04 23:33] LABS: MANUAL DIFF FLAG NO
[2024-01-04 23:36] LABS: Basophils Absolute Auto 0.1 X10*3/uL (0.0-0.2); Basophils Percent Auto 0.8 % (0-2); Eosinophils Absolute Auto 0.4 X10*3/uL (0.0-0.4); Eosinophils Percent Auto 4.9 % (0-4); Hematocrit 37.6 % (37.0-47.0); Imm Gran Abs Auto 0.04 X10*3/uL (0.00-0.03); Imm Gran Pct Auto 0.6 % (0.0-0.4); Lymphocytes Absolute Auto 1.3 X10*3/uL (1.2-4.9); Lymphocytes Percent Auto 18.7 % (20-40); Mean Corpuscular HGB Conc 34.6 g/dl (31.0-35.0); Mean Corpuscular Hemoglobin 28.2 pg (27.0-33.0); Mean Corpuscular Volume 81.6 fL (80.0-98.0); Monocytes Absolute Auto 0.5 X10*3/uL (0.1-1.2); Monocytes Percent Auto 7.3 % (2-11); Neutrophils Absolute Auto 4.8 x10*3/uL (2.0-8.3); Neutrophils Percent Auto 67.7 % (45-73); Platelet Count 241 X10*3/uL (160-400); Red Blood Count 4.61 X10*6/uL (4.20-5.50); Red Cell Distribution Width 14.4 % (11.0-16.0); White Blood Count 7.1 X10*3/uL (4.8-10.8)
[2024-01-05 00:02] LABS: Alanine Aminotransferase 16 U/L (0-31); Albumin Level 4.3 g/dL (3.5-5.0); Alkaline Phosphatase 48 U/L (39-117); Anion Gap 14 (12-20); Aspartate Amino Transferase 19 U/L (5-31); Bilirubin Direct 0.1 mg/dL (0.0-0.5); Bilirubin Total 0.3 mg/dL (0.0-1.0); Blood Urea Nitrogen 18 mg/dL (9-16); Calcium 9.5 mg/dL (8.4-10.2); Carbon Dioxide 23 mmol/L (22-29); Chloride 110 mmol/L (96-108); Cholesterol 151 mg/dL (<200); Creatinine Clr Calc Pharmacy 76.8; Estimated Glomerular Filt Rate > 60; Glucose Random 141 mg/dL (60-115); HDL Cholesterol 41 mg/dL (>40); LDL Cholesterol Calculated 86 mg/dL (<100); Potassium 3.5 mmol/L (3.3-5.1); Sodium 143 mmol/L (135-145); Total Protein 7.3 g/dL (6.5-8.0); Triglycerides 123 mg/dL (<150)
--- NOTE | 2024-01-05 00:32 | ED_ITS ---
HPI - Female Genitourinary General Chief complaint: Urogenital-Female Stated complaint: SHARP LOW BACK/R FLANK PAIN Time Seen by Provider: 01/05/24 00:32 Source: patient Mode of arrival: ambulatory Limitations: no limitations History of Present Illness ED Provider: tara MAY Narrative: Patient's history of nonobstructive kidney stones in the past comes here for acute onset of pain in the right flank area at 20:30 lasted till 21:00 after receiving fentanyl by the EMS denies any dysuria or hematuria no fever no chills + nausea no vomiting Related Data Home Medications ?Medication ?Instructions ?Recorded ?Confirmed amlodipine 10 mg tablet 10 mg PO DAILY 06/08/23 11/21/23 bupropion HCl 150 mg 24 hr tablet, 150 mg PO DAILY 06/08/23 11/21/23 extended release bupropion HCl 300 mg 24 hr tablet, 300 mg PO DAILY 06/08/23 11/21/23 extended release carvedilol 25 mg tablet 25 mg PO BID 06/08/23 11/21/23 dorzolamide 2 % eye drops 1 drp ophthalmic (eye) BID 06/08/23 11/21/23 fenofibrate nanocrystallized 145 145 mg PO DAILY 06/08/23 11/21/23 mg tablet ferrous gluconate 324 mg (38 mg 324 mg PO BID 06/08/23 11/21/23 iron) tablet latanoprost 0.005 % eye drops 1 drp ophthalmic (eye) BEDTIME 06/08/23 11/21/23 levothyroxine 50 mcg tablet 50 mcg PO MOTUWETHFRSA@0600 06/08/23 11/21/23 loratadine 10 mg tablet 10 mg PO DAILY 06/08/23 11/21/23 metformin 500 mg tablet,extended 500 mg PO BID 06/08/23 11/21/23 release 24 hr montelukast 10 mg tablet 10 mg PO DAILY 06/08/23 11/21/23 ropinirole 1 mg tablet 1 mg PO DAILY 06/08/23 11/21/23 rosuvastatin 40 mg tablet 40 mg PO BEDTIME 06/08/23 11/21/23 sertraline 100 mg tablet 200 mg PO DAILY 06/08/23 11/21/23 tirzepatide 7.5 mg/0.5 mL 7.5 mg subcut MO 06/08/23 11/21/23 subcutaneous pen injector (Nadya) trazodone 100 mg tablet 250 mg PO BEDTIME 06/08/23 11/21/23 gabapentin 300 mg capsule 900 mg PO BEDTIME 06/09/23 11/21/23 levothyroxine 50 mcg tablet 100 mcg PO PIERCE 06/09/23 11/21/23 lutein 10 mg tablet 10 mg PO DAILY 06/09/23 11/21/23 ropinirole 1 mg tablet 2 mg PO BEDTIME 06/09/23 11/21/23 ascorbic acid (vitamin C) 500 mg 500 mg PO DAILY 11/21/23 11/21/23 tablet (Vitamin C) cholecalciferol (vitamin D3) 25 25 mcg PO DAILY 11/21/23 11/21/23 mcg (1,000 unit) tablet cyanocobalamin (vitamin B-12) 50 50 mcg PO DAILY 11/21/23 11/21/23 mcg tablet omega 9-rpe-hcx-fish oil 60 mg-90 1 cap PO DAILY 11/21/23 11/21/23 mg-500 mg capsule (Fish Oil) Previous Rx's ?Medication ?Instructions ?Recorded cefuroxime axetil 500 mg tablet 500 mg PO BID #10 tabs 11/23/23 Allergies Allergy/AdvReac Type Severity Reaction Status Date / Time Sulfa (Sulfonamide Allergy Unknown HIVES Verified 01/04/24 23:05 Antibiotics) [SULFA (SULFONAMIDE ANTIBIOTICS)] Review of Systems 2 Review of Systems: Yes all other systems are reviewed and are negative [facility] Past Medical History Medical History Hypothyroidism Type 2 diabetes mellitus Obstructive sleep apnea on CPAP Hyperlipidemia Essential hypertension Morbid obesity Surgical History Hx of cholecystectomy Social History Social History Household Members: Spouse Housing: House Do you presently have visiting nurse or other home services: No Patient Tobacco Use Status: Never used Tobacco Advance Directives: No Advance Directives Information Provided: No service: No Physical Exam 2 Vital Signs: Vital Signs: Last Vital Signs Temp 98.3 F 01/04/24 22:59 Pulse 68 01/05/24 02:40 Resp 16 01/05/24 02:40 BP 152/76 H 01/05/24 02:40 Pulse Ox 97 01/05/24 02:40 O2 Del Method Room Air 01/05/24 02:40 BMI result Body Mass Index 41.0 Appearance: Alert. Oriented X3. No acute distress. Eyes: No pallor or icterus ENT: Pharynx normal. Oral Mucosa moist Neck: Normal inspection. Neck supple. CVS: Normal heart rate and rhythm. Pulses normal. Respiratory: No respiratory distress. Equal air entry bilateral, no wheezing/rales/rhonchi Abdomen: Soft and nontender. Bowel sounds are present, no mass palpable, mild right CVA tenderness Skin: Skin warm and dry. Normal skin color. Normal skin turgor. Extremities: No lower extremity edema. No calf tenderness Neuro: Oriented X 3. Medications Administered Discontinued Medications Generic Name Dose Route Start Last Admin Trade Name Freq PRN Reason Stop Dose Admin Sodium Chloride 1,000 mls @ 999 mls/hr 01/05/24 00:36 01/05/24 01:45 Ns IV 01/05/24 01:36 999 mls/hr .Q1H1M ONE Administration Morphine Sulfate 4 mg 01/05/24 00:36 01/05/24 00:52 Morphine Sulfate 4 Mg/Ml Cartridge IVPUSH 01/05/24 00:37 4 mg ONCE ONE Administration Protocol Ondansetron HCl 4 mg 01/05/24 00:36 01/05/24 00:52 Ondansetron Hcl 4 Mg/2 Ml Vial IVPUSH 01/05/24 00:37 4 mg ONCE ONE Administration Medical Decision Making Medical Decision Making [facility] Narrative: Patient with right renal colic with urine negative CT scan negative for obstructive stone discharge patient home for likely patient has passed stone Differential Diagnosis Differential Diagnoses: The differential diagnosis associated with the presentation includes Lab Data [facility] Lab Attestation statement: I reviewed the patient's lab results. 01/04/24 23:21 01/04/24 23:21 Labs: Lab Results 01/04/24 01/05/24 Range/Units 23:21 02:06 WBC 7.1 (4.8-10.8) X10*3/uL RBC 4.61 (4.20-5.50) X10*6/uL Hgb 13.0 (12.0-16.0) g/dl Hct 37.6 (37.0-47.0) % MCV 81.6 (80.0-98.0) fL MCH 28.2 (27.0-33.0) pg MCHC 34.6 (31.0-35.0) g/dl RDW 14.4 (11.0-16.0) % Plt Count 241 D (160-400) X10*3/uL MPV 11.0 (9.4-12.3) fL Immature Gran % (Auto) 0.6 H (0.0-0.4) % Neut % (Auto) 67.7 (45-73) % Lymph % (Auto) 18.7 L (20-40) % [place] % (Auto) 7.3 (2-11) % Eos % (Auto) 4.9 H (0-4) % Baso % (Auto) 0.8 (0-2) % Lymph # (Auto) 1.3 (1.2-4.9) X10*3/uL [place] # (Auto) 0.5 (0.1-1.2) X10*3/uL Eos # (Auto) 0.4 (0.0-0.4) X10*3/uL Baso # (Auto) 0.1 (0.0-0.2) X10*3/uL Abs Immat Gran (auto) 0.04 H (0.00-0.03) X10*3/uL Absolute Neuts (auto) 4.8 (2.0-8.3) x10*3/uL Absolute Nucleated RBC 0.000 (0.0-0.012) X10*3/uL Nucleated RBC % (auto) 0.0 (0.0-0.2) /100WBC Sodium 143 (135-145) mmol/L Potassium 3.5 D (3.3-5.1) mmol/L Chloride 110 H (96-108) mmol/L Carbon Dioxide 23 (22-29) mmol/L Anion Gap 14 (12-20) BUN 18 H (9-16) mg/dL Creatinine 0.88 (0.5-1.4) mg/dL Estim Creat Clear Calc 76.8 Estimated GFR > 60 Random Glucose 141 H (60-115) mg/dL Calcium 9.5 D (8.4-10.2) mg/dL Total Bilirubin 0.3 (0.0-1.0) mg/dL Direct Bilirubin 0.1 (0.0-0.5) mg/dL AST 19 (5-31) U/L ALT 16 (0-31) U/L Alkaline Phosphatase 48 (39-117) U/L Total Protein 7.3 (6.5-8.0) g/dL Albumin 4.3 (3.5-5.0) g/dL Triglycerides 123 (<150) mg/dL Cholesterol 151 (<200) mg/dL LDL Cholesterol, Calc 86 (<100) mg/dL HDL Cholesterol 41 (>40) mg/dL Urine Color Yellow Urine Appearance Clear Urine pH 8.0 (5.0-9.0) Ur Specific [place] 1.020 (1.005-1.025) Urine Protein 100 (2+) H (Neg-Trace) mg/dL Urine Glucose (UA) Negative (Negative) mg/dL Urine Ketones Negative (Negative) mg/dL Urine Blood Negative (Negative) Urine Nitrite Negative (Negative) Ur Leukocyte Esterase Negative (Negative) Urine RBC 0-2 (0-2) /HPF Urine WBC 0-5 (0-5) /HPF Ur Squamous Epith Cells 0-2 (0-2) /HPF Urine Bacteria None Seen (None Seen) Hyaline Casts 0-2 (0-2) /LPF Independent Interpretation I performed an independent interpretation of an: CT Scan Radiology Impression Discussion of test interpretation with radiology: I have reviewed the radiologist's reading. Discharge Plan Discharge Clinical Impression: Renal colic on right side Patient Disposition: Home, Self-Care Instructions: Renal Colic (ED) Additional Instructions: Your CT scan negative for any obstructive stone Likely you passed the stone Follow with your PCP Prescriptions: No Action latanoprost 0.005 % drops 1 drp ophthalmic (eye) BEDTIME carvedilol 25 mg tablet 25 mg PO BID ropinirole 1 mg tablet 1 mg PO DAILY trazodone 100 mg tablet 250 mg PO BEDTIME amlodipine 10 mg tablet 10 mg PO DAILY levothyroxine 50 mcg tablet 50 mcg PO MOTUWETHFRSA@0600 loratadine 10 mg tablet 10 mg PO DAILY dorzolamide 2 % drops 1 drp ophthalmic (eye) BID rosuvastatin 40 mg tablet 40 mg PO BEDTIME bupropion HCl 300 mg tablet extended release 24 hr 300 mg PO DAILY bupropion HCl 150 mg tablet extended release 24 hr 150 mg PO DAILY fenofibrate nanocrystallized 145 mg tablet 145 mg PO DAILY ferrous gluconate 324 mg (38 mg iron) tablet 324 mg PO BID Mounjaro 7.5 mg/0.5 mL pen injector 7.5 mg subcut MO metformin 500 mg tablet extended release 24 hr 500 mg PO BID sertraline 100 mg tablet 200 mg PO DAILY montelukast 10 mg tablet 10 mg PO DAILY ropinirole 1 mg tablet 2 mg PO BEDTIME levothyroxine 50 mcg tablet 100 mcg PO PIERCE gabapentin 300 mg capsule 900 mg PO BEDTIME lutein 10 mg Tablet 10 mg PO DAILY Rx Instructions: give with meal/snack cyanocobalamin (vitamin B-12) 50 mcg Tablet 50 mcg PO DAILY ascorbic acid (vitamin C) [Vitamin C] 500 mg Tablet 500 mg PO DAILY cholecalciferol (vitamin D3) 25 mcg (1,000 unit) Tablet 25 mcg PO DAILY omega 9-zlu-ajl-fish oil [Fish Oil] 60-90-500 mg Capsule 1 cap PO DAILY cefuroxime axetil 500 mg tablet 500 mg PO BID Qty: 10 0RF Print Language: Frisian
[2024-01-05 00:52] VITALS: RESP 16
[2024-01-05] MEDS: Morphine Sulfate 4 MG/ML CARTRIDGE IVPUSH (00:52)
[2024-01-05] MEDS: ondansetron HCL 4 MG/2 ML VIAL IVPUSH (00:52)
[2024-01-05] MEDS: 0.9 % Sodium Chloride 1,000 ML 999 ML IV (01:45)
[2024-01-05 02:20] LABS: Appearance Urine Clear; Color Urine Yellow; Glucose Urine UA Negative (Negative); Leukocyte Esterase Urine Negative (Negative); Nitrite Urine Negative (Negative); UMIC TRIGGER UACC YES; Urine Blood Negative (Negative); Urine Ketones Negative (Negative); Urine Protein 100 (2+) mg/dL (Neg-Trace)
[2024-01-05 02:23] LABS: Bacteria Urine None Seen (None Seen); Hyaline Casts Urine 0-2 /LPF (0-2); RBC Urine 0-2 /HPF (0-2); Squamous Epithelial Cell Urine 0-2 /HPF (0-2); WBC Urine 0-5 /HPF (0-5)
[2024-01-05 02:40] VITALS: BP 152/76; PULSE 68; RESP 16; O2SAT 97
[2024-01-05 03:44] VITALS: BP 130/85; PULSE 89; RESP 16; TEMP 36.8; O2SAT 98
== END 2024-01-05 03:45 | disposition home or self-care (01) ==
PROVIDERS: Emergency Provider Internal Medicine; PCP Family Medicine
DX: N20.0 Calculus of kidney (principal); M54.50 Low back pain, unspecified; E11.9 Type 2 diabetes mellitus without complications; I10 Essential (primary) hypertension; E78.5 Hyperlipidemia, unspecified; Z79.02 Long term (current) use of antithrombotics/antiplatelets; Z79.899 Other long term (current) drug therapy; Z79.84 Long term (current) use of oral hypoglycemic drugs
CPT/HCPCS: 36415; 74176; 80048; 80061; 80076; 81001; 85025; 96361; 96374; 96375; 99284; J2270; J2405

== ENCOUNTER 2024-06-10 18:05 | Emergency (ER) | payer OTHER, SELFPAY ==
--- NOTE | ~2024-06-10 | XR_ITS ---
CLINICAL HISTORY: cp 1 view chest x-ray Comparison: None Findings: Low lung volumes with bibasilar atelectasis and/or pneumonitis. Cardiac silhouette and mediastinum accentuated by AP technique. No pneumothorax or pleural effusion. Mild widening of the left AC joint. Small calcifications of the likely calcific tendinitis of the left shoulder. IMPRESSION: Low lung volumes with mild bibasilar atelectasis. This document has been electronically signed by: Sekou Egan MD on 06/10/2024 19:53:17
[2024-06-10 18:12] VITALS: BP 140/60; PULSE 80; O2SAT 88
[2024-06-10 18:14] VITALS: BP 149/55; PULSE 71; RESP 18; TEMP 37.3; O2SAT 95
--- NOTE | 2024-06-10 18:48 | ECG_ITS ---
Test Reason : WEAKNESS Blood Pressure : */* mmHG Vent. Rate : 69 BPM Atrial Rate : 69 BPM P-R Int : 178 ms QRS Dur : 112 ms QT Int : 438 ms P-R-T Axes : 58 17 57 degrees QTcB Int : 469 ms Normal sinus rhythm Normal ECG When compared with ECG of 20-Nov-2023 20:00, No significant change was found Referred By: Stefania Kumari Electronically Signed By: MONIKA URBINA
--- NOTE | 2024-06-10 19:01 | ED.GENADULT ---
HPI - General Adult General Chief complaint: General Medical Stated complaint: WEAKNESS COUGH FEVER Time Seen by Provider: 06/10/24 18:14 History of Present Illness HPI narrative: Patient is 69 years old presented today with having generalized malaise weakness. Positive coughing positive aches. No vomiting. Feel very tired. Positive coughing positive upper respiratory symptoms. Patient has previous history of renal failure. Denies any chest pain. Denies any diaphoresis. Denies any about group pain denies any nausea vomiting diarrhea. Patient from home. Related Data Home Medications ?Medication ?Instructions ?Recorded ?Confirmed amlodipine 10 mg tablet 10 mg PO DAILY 06/08/23 11/21/23 bupropion HCl 150 mg 24 hr tablet, 150 mg PO DAILY 06/08/23 11/21/23 extended release bupropion HCl 300 mg 24 hr tablet, 300 mg PO DAILY 06/08/23 11/21/23 extended release carvedilol 25 mg tablet 25 mg PO BID 06/08/23 11/21/23 dorzolamide 2 % eye drops 1 drp ophthalmic (eye) BID 06/08/23 11/21/23 fenofibrate nanocrystallized 145 145 mg PO DAILY 06/08/23 11/21/23 mg tablet ferrous gluconate 324 mg (38 mg 324 mg PO BID 06/08/23 11/21/23 iron) tablet latanoprost 0.005 % eye drops 1 drp ophthalmic (eye) BEDTIME 06/08/23 11/21/23 levothyroxine 50 mcg tablet 50 mcg PO MOTUWETHFRSA@0600 06/08/23 11/21/23 loratadine 10 mg tablet 10 mg PO DAILY 06/08/23 11/21/23 metformin 500 mg tablet,extended 500 mg PO BID 06/08/23 11/21/23 release 24 hr montelukast 10 mg tablet 10 mg PO DAILY 06/08/23 11/21/23 ropinirole 1 mg tablet 1 mg PO DAILY 06/08/23 11/21/23 rosuvastatin 40 mg tablet 40 mg PO BEDTIME 06/08/23 11/21/23 sertraline 100 mg tablet 200 mg PO DAILY 06/08/23 11/21/23 tirzepatide 7.5 mg/0.5 mL 7.5 mg subcut MO 02/21/24 08/05/24 subcutaneous pen injector (Nadya) trazodone 100 mg tablet 250 mg PO BEDTIME 06/08/23 11/21/23 gabapentin 300 mg capsule 900 mg PO BEDTIME 06/09/23 11/21/23 levothyroxine 50 mcg tablet 100 mcg PO PIERCE 06/09/23 11/21/23 lutein 10 mg tablet 10 mg PO DAILY 06/09/23 11/21/23 ropinirole 1 mg tablet 2 mg PO BEDTIME 06/09/23 11/21/23 ascorbic acid (vitamin C) 500 mg 500 mg PO DAILY 11/21/23 11/21/23 tablet (Vitamin C) cholecalciferol (vitamin D3) 25 25 mcg PO DAILY 11/21/23 11/21/23 mcg (1,000 unit) tablet cyanocobalamin (vitamin B-12) 50 50 mcg PO DAILY 11/21/23 11/21/23 mcg tablet omega 8-mre-wwp-fish oil 60 mg-90 1 cap PO DAILY 11/21/23 11/21/23 mg-500 mg capsule (Fish Oil) Previous Rx's ?Medication ?Instructions ?Recorded cefuroxime axetil 500 mg tablet 500 mg PO BID #10 tabs 11/23/23 Allergies Allergy/AdvReac Type Severity Reaction Status Date / Time Sulfa (Sulfonamide Allergy Unknown HIVES Verified 06/10/24 18:27 Antibiotics) [SULFA (SULFONAMIDE ANTIBIOTICS)] Review of Systems Review of Systems: Positive generalized malaise Yes all other systems are reviewed and are negative [facility] Past Medical History Attestation statement: The following information was validated with the patient. Medical History Hypothyroidism Type 2 diabetes mellitus Obstructive sleep apnea on CPAP Hyperlipidemia Essential hypertension Morbid obesity Surgical History Hx of cholecystectomy Social History Social History Household Members: Spouse Housing: House Do you presently have visiting nurse or other home services: No Alcohol intake: current Alcohol intake frequency: holidays/special occasions only Alcohol type: hard liquor Patient Tobacco Use Status: Never used Tobacco Smoked in Last 30 Days: No Use of substances other than those prescribed or required for medical reasons: No Advance Directives: Yes Advance Directives Information Provided: Yes Advance Directives on File: No Do you have a plan to hurt others: No Plan service: No Physical Exam ED Vital Signs: Vital Signs - 24 hr 06/10/24 18:14 06/10/24 20:04 Temperature 99.1 F 98.7 F Pulse Rate 71 70 Respiratory Rate 18 16 Blood Pressure 149/55 H 155/64 H Pulse Oximetry 95 95 Oxygen Delivery Method Room Air Nasal Cannula Oxygen Flow Rate 2 BMI result Body Mass Index 7.5 Appearance: Alert. Oriented X3. No acute distress. Eyes: Pupils equal, round and reactive to light. ENT: Pharynx normal. Neck: Normal inspection. Neck supple. No lymph nodes noted. No crepitus CVS: Normal heart rate and rhythm. Pulses normal. Normal S1 and S2 Respiratory: No respiratory distress. Breath sounds normal. No Wheezing. No rales Abdomen: Soft and nontender. No rigidity. No distention. good BS x4 Skin: Skin warm and dry. Normal skin color. Normal skin turgor. Extremities: No lower extremity edema. Neurovascular intact to all extremities. No Lacerations. No Rash Neuro: Oriented X 3. No motor deficit. No sensory deficit. Moving all extermities. No slurred speech Medications Administered Discontinued Medications Generic Name Dose Route Start Last Admin Trade Name Freq PRN Reason Stop Dose Admin Sodium Chloride 1,000 mls @ 999 mls/hr 06/10/24 19:00 06/10/24 19:53 Ns IV 06/10/24 20:00 999 mls/hr .Q1H1M AN[place] Administration Medical Decision Making Medical Decision Making [facility] Narrative: 20:20 Positive coughing congestion upper respiratory symptoms. Patient tested positive for influenza. Symptoms been ongoing for the last few days. Greater than 48 hours. Labs are still pending. 21:06 patient's electrolytes are still pending hemoglobin is normal in no acute distress. If chemistries normal patient should be discharged home. O2 sat is normal. Differential Diagnosis Pneumonia, CHF, influenza, COVID, Admission/Observation Consideration of admission/observation: Escalation of care including admission/observation considered Lab Data [facility] Lab Attestation statement: I reviewed the patient's lab results. 06/10/24 19:58 Labs: Lab Results 06/10/24 06/10/24 Range/Units 18:31 19:58 WBC 3.9 L (4.8-10.8) X10*3/uL RBC 4.97 (4.20-5.50) X10*6/uL Hgb 13.1 (12.0-16.0) g/dl Hct 41.0 (37.0-47.0) % MCV 82.5 (80.0-98.0) fL MCH 26.4 L (27.0-33.0) pg MCHC 32.0 (31.0-35.0) g/dl RDW 14.9 (11.0-16.0) % Plt Count 109 L D (160-400) X10*3/uL MPV 11.7 (9.4-12.3) fL Immature Gran % (Auto) 1.0 H (0.0-0.4) % Neut % (Auto) 72.2 (45-73) % Lymph % (Auto) 13.5 L (20-40) % [place] % (Auto) 12.2 H (2-11) % Eos % (Auto) 0.3 (0-4) % Baso % (Auto) 0.8 (0-2) % Lymph # (Auto) 0.5 L (1.2-4.9) X10*3/uL [place] # (Auto) 0.5 (0.1-1.2) X10*3/uL Eos # (Auto) 0.0 (0.0-0.4) X10*3/uL Baso # (Auto) 0.0 (0.0-0.2) X10*3/uL Abs Immat Gran (auto) 0.04 H (0.00-0.03) X10*3/uL Absolute Neuts (auto) 2.8 (2.0-8.3) x10*3/uL Absolute Nucleated RBC 0.000 (0.0-0.012) X10*3/uL Nucleated RBC % (auto) 0.0 (0.0-0.2) /100WBC Smear Tech's Comments VERIFIED Total Bilirubin 0.3 (0.0-1.0) mg/dL Direct Bilirubin 0.1 (0.0-0.5) mg/dL AST 58 H (5-31) U/L ALT 36 H (0-31) U/L Alkaline Phosphatase 50 (39-117) U/L Ammonia 48 (13-55) umol/L Troponin I High Sens 3.3 (<3.5-17.0) ng/L Total Protein 7.0 (6.5-8.0) g/dL Albumin 3.8 (3.5-5.0) g/dL TSH 1.22 (0.32-4.0) uIU/mL Influenza Type A (PCR) POSITIVE A (Negative) Influenza Type B (PCR) NEGATIVE (Negative) RSV RNA Qual (PCR) NEGATIVE (Negative) SARS-CoV-2 RNA (RT-PCR) NEGATIVE (Negative) Independent Interpretation I performed an independent interpretation of an: EKG (My interpretation patient's EKG showed a sinus rhythm heart rate is 80 NE QRS QTC normal no acute ST segment elevation) and Plain X-Ray (My interpretation patient's chest x-ray was grossly negative for any acute evidence of infiltrate. I reviewed radiology's reading.) Radiology Impression Discussion of test interpretation with radiology: I have reviewed the radiologist's reading. External Record Review External record reviewed: Inpatient record Chronic Conditions Patient?s care impacted by: Diabetes and Hypertension Question history of renal insufficiency Social Determinants Patient?s care significantly limited by Social Determinants of Health including: Problems related to primary support group Discharge Plan Discharge Clinical Impression: Influenza Patient Disposition: Still a Patient Instructions: Influenza (ED) Prescriptions: No Action latanoprost 0.005 % drops 1 drp ophthalmic (eye) BEDTIME carvedilol 25 mg tablet 25 mg PO BID ropinirole 1 mg tablet 1 mg PO DAILY trazodone 100 mg tablet 250 mg PO BEDTIME amlodipine 10 mg tablet 10 mg PO DAILY levothyroxine 50 mcg tablet 50 mcg PO MOTUWETHFRSA@0600 loratadine 10 mg tablet 10 mg PO DAILY dorzolamide 2 % drops 1 drp ophthalmic (eye) BID rosuvastatin 40 mg tablet 40 mg PO BEDTIME bupropion HCl 300 mg tablet extended release 24 hr 300 mg PO DAILY bupropion HCl 150 mg tablet extended release 24 hr 150 mg PO DAILY fenofibrate nanocrystallized 145 mg tablet 145 mg PO DAILY ferrous gluconate 324 mg (38 mg iron) tablet 324 mg PO BID Mounjaro 7.5 mg/0.5 mL pen injector 7.5 mg subcut MO metformin 500 mg tablet extended release 24 hr 500 mg PO BID sertraline 100 mg tablet 200 mg PO DAILY montelukast 10 mg tablet 10 mg PO DAILY ropinirole 1 mg tablet 2 mg PO BEDTIME levothyroxine 50 mcg tablet 100 mcg PO PIERCE gabapentin 300 mg capsule 900 mg PO BEDTIME lutein 10 mg Tablet 10 mg PO DAILY Rx Instructions: give with meal/snack cyanocobalamin (vitamin B-12) 50 mcg Tablet 50 mcg PO DAILY ascorbic acid (vitamin C) [Vitamin C] 500 mg Tablet 500 mg PO DAILY cholecalciferol (vitamin D3) 25 mcg (1,000 unit) Tablet 25 mcg PO DAILY omega 9-qry-jor-fish oil [Fish Oil] 60-90-500 mg Capsule 1 cap PO DAILY cefuroxime axetil 500 mg tablet 500 mg PO BID Qty: 10 0RF Referrals: Marine Saucedo MD [Primary Care Provider] - 06/13/24 Print Language: Tristanian
[2024-06-10 19:15] LABS: Influenza A PCR POSITIVE (Negative); Influenza B PCR NEGATIVE (Negative); Resp Syncy Virus RNA Qual PCR NEGATIVE (Negative); SARS COV2 PCR INHOUSE NEGATIVE (Negative)
[2024-06-10] MEDS: 0.9 % Sodium Chloride 1,000 ML 999 ML IV (19:53)
[2024-06-10 20:04] VITALS: BP 155/64; PULSE 70; RESP 16; TEMP 37.1; O2SAT 95
[2024-06-10 20:21] LABS: Basophils Percent Auto 0.8 % (0-2); Eosinophils Percent Auto 0.3 % (0-4); Hemoglobin 13.1 g/dl (12.0-16.0); Imm Gran Abs Auto 0.04 X10*3/uL (0.00-0.03); Lymphocytes Absolute Auto 0.5 X10*3/uL (1.2-4.9); Lymphocytes Percent Auto 13.5 % (20-40); MANUAL DIFF FLAG SCAN; Mean Corpuscular Hemoglobin 26.4 pg (27.0-33.0); Mean Corpuscular Volume 82.5 fL (80.0-98.0); Mean Platelet Volume 11.7 fL (9.4-12.3); Monocytes Absolute Auto 0.5 X10*3/uL (0.1-1.2); Monocytes Percent Auto 12.2 % (2-11); Neutrophils Absolute Auto 2.8 x10*3/uL (2.0-8.3); Neutrophils Percent Auto 72.2 % (45-73); PLT CLUMP 1; Red Blood Count 4.97 X10*6/uL (4.20-5.50); Red Cell Distribution Width 14.9 % (11.0-16.0); SCAN SMEAR FLAG 1; White Blood Count 3.9 X10*3/uL (4.8-10.8)
[2024-06-10 20:33] LABS: Ammonia 48 umol/L (13-55)
[2024-06-10 20:44] LABS: Alanine Aminotransferase 36 U/L (0-31); Albumin Level 3.8 g/dL (3.5-5.0); Alkaline Phosphatase 50 U/L (39-117); Aspartate Amino Transferase 58 U/L (5-31); Bilirubin Direct 0.1 mg/dL (0.0-0.5); Bilirubin Total 0.3 mg/dL (0.0-1.0)
[2024-06-10 20:48] LABS: Troponin-I High Sensitivity 3.3 ng/L (<3.5-17.0)
[2024-06-10 20:51] LABS: Platelet Count 109 X10*3/uL (160-400); SLIDE REVIEW VERIFIED
[2024-06-10 21:03] LABS: TSH reflex Free T4 1.22 uIU/mL (0.32-4.0)
[2024-06-10 21:17] LABS: Anion Gap 13 (12-20); Blood Urea Nitrogen 16 mg/dL (9-16); Calcium 8.8 mg/dL (8.4-10.2); Carbon Dioxide 22 mmol/L (22-29); Chloride 109 mmol/L (96-108); Creatinine Clr Calc Pharmacy 21.6; Estimated Glomerular Filt Rate > 60; Glucose Random 80 mg/dL (60-115); Potassium 4.4 mmol/L (3.3-5.1); Sodium 140 mmol/L (135-145)
[2024-06-10 22:00] VITALS: BP 121/45; PULSE 68; RESP 16; TEMP 37.9; O2SAT 93
[2024-06-10 22:27] VITALS: TEMP 37.5; O2SAT 93
[2024-06-10 22:28] VITALS: BP 121/45; PULSE 68; RESP 16; TEMP 37.5; O2SAT 93
== END 2024-06-10 22:30 | disposition home or self-care (01) ==
PROVIDERS: Emergency Provider Emergency Medicine Emergency Medical Services; PCP Family Medicine
DX: J10.1 Influenza due to other identified influenza virus with other respiratory manifestations (principal); R05.9 Cough, unspecified; R53.1 Weakness; R50.9 Fever, unspecified; Z79.899 Other long term (current) drug therapy; Z03.818 Encounter for observation for suspected exposure to other biological agents ruled out
CPT/HCPCS: 0241U; 36415; 71045; 80053; 80076; 82140; 82248; 84443; 84484; 85025; 93005; 99283; 99284

== ENCOUNTER → 2024-06-10 18:48 | Outpatient (BNV) | payer OTHER, SELFPAY | PROVIDERS: Emergency Provider Emergency Medicine Emergency Medical Services; PCP Family Medicine; Visit Provider Radiology Neuroradiology | DX: J98.11 Atelectasis (principal) | CPT/HCPCS: 71045 ==

== ENCOUNTER → 2024-06-10 18:48 | Outpatient (BNV) | payer OTHER, SELFPAY | PROVIDERS: Emergency Provider Emergency Medicine Emergency Medical Services; PCP Family Medicine; Visit Provider Internal Medicine | DX: R53.1 Weakness (principal) | CPT/HCPCS: 93010 ==

== ENCOUNTER 2024-07-31 19:10 | Emergency (ER) | payer OTHER, SELFPAY ==
[2024-07-31 19:33] VITALS: BP 177/77; PULSE 70; RESP 16; TEMP 36.6; O2SAT 95; BMI 43.1
--- NOTE | 2024-07-31 20:58 | ED.EYEPROB ---
HPI - Eye Problem General Chief complaint: Eye Problems Stated complaint: R eye inj Time Seen by Provider: 07/31/24 20:55 Source: patient Mode of arrival: ambulatory Limitations: no limitations History of Present Illness ED Provider: HPI Narrative: Apparently patient was burning some brushes with her son outside and yannick came to her right eye since then having foreign body sensation with redness of the right eye patient also does have glaucoma ambulate follow up with [employer] Related Data Home Medications ?Medication ?Instructions ?Recorded ?Confirmed amlodipine 10 mg tablet 10 mg PO DAILY 06/08/23 11/21/23 bupropion HCl 150 mg 24 hr tablet, 150 mg PO DAILY 06/08/23 11/21/23 extended release bupropion HCl 300 mg 24 hr tablet, 300 mg PO DAILY 06/08/23 11/21/23 extended release carvedilol 25 mg tablet 25 mg PO BID 06/08/23 11/21/23 dorzolamide 2 % eye drops 1 drp ophthalmic (eye) BID 06/08/23 11/21/23 fenofibrate nanocrystallized 145 145 mg PO DAILY 06/08/23 11/21/23 mg tablet ferrous gluconate 324 mg (38 mg 324 mg PO BID 06/08/23 11/21/23 iron) tablet latanoprost 0.005 % eye drops 1 drp ophthalmic (eye) BEDTIME 06/08/23 11/21/23 levothyroxine 50 mcg tablet 50 mcg PO MOTUWETHFRSA@0600 06/08/23 11/21/23 loratadine 10 mg tablet 10 mg PO DAILY 06/08/23 11/21/23 metformin 500 mg tablet,extended 500 mg PO BID 06/08/23 11/21/23 release 24 hr montelukast 10 mg tablet 10 mg PO DAILY 06/08/23 11/21/23 ropinirole 1 mg tablet 1 mg PO DAILY 06/08/23 11/21/23 rosuvastatin 40 mg tablet 40 mg PO BEDTIME 06/08/23 11/21/23 sertraline 100 mg tablet 200 mg PO DAILY 06/08/23 11/21/23 tirzepatide 7.5 mg/0.5 mL 7.5 mg subcut MO 06/08/23 11/21/23 subcutaneous pen injector (Nadya) trazodone 100 mg tablet 250 mg PO BEDTIME 06/08/23 11/21/23 gabapentin 300 mg capsule 900 mg PO BEDTIME 06/09/23 11/21/23 levothyroxine 50 mcg tablet 100 mcg PO PIERCE 06/09/23 11/21/23 lutein 10 mg tablet 10 mg PO DAILY 06/09/23 11/21/23 ropinirole 1 mg tablet 2 mg PO BEDTIME 06/09/23 11/21/23 ascorbic acid (vitamin C) 500 mg 500 mg PO DAILY 11/21/23 11/21/23 tablet (Vitamin C) cholecalciferol (vitamin D3) 25 25 mcg PO DAILY 11/21/23 11/21/23 mcg (1,000 unit) tablet cyanocobalamin (vitamin B-12) 50 50 mcg PO DAILY 11/21/23 11/21/23 mcg tablet omega 1-prm-hjs-fish oil 60 mg-90 1 cap PO DAILY 11/21/23 11/21/23 mg-500 mg capsule (Fish Oil) Previous Rx's ?Medication ?Instructions ?Recorded cefuroxime axetil 500 mg tablet 500 mg PO BID #10 tabs 11/23/23 Allergies Allergy/AdvReac Type Severity Reaction Status Date / Time Sulfa (Sulfonamide Allergy Unknown HIVES Verified 07/31/24 19:36 Antibiotics) [SULFA (SULFONAMIDE ANTIBIOTICS)] Review of Systems Review of Systems: Yes all other systems are reviewed and are negative PENDING SALE TO [facility] Past Medical History Medical History Hypothyroidism Type 2 diabetes mellitus Obstructive sleep apnea on CPAP Hyperlipidemia Essential hypertension Morbid obesity Surgical History Hx of cholecystectomy Social History Social History Household Members: Spouse Housing: House Do you presently have visiting nurse or other home services: No Alcohol intake: current Alcohol intake frequency: holidays/special occasions only Alcohol type: hard liquor Patient Tobacco Use Status: Never used Tobacco Smoked in Last 30 Days: No Use of substances other than those prescribed or required for medical reasons: Yes Substance Use Type: Marijuana Advance Directives: No Advance Directives Information Provided: No Do you have a plan to hurt others: No Plan service: No Physical Exam Vital Signs: Vital Signs: Last Vital Signs Temp 98.7 F 07/31/24 21:45 Pulse 63 07/31/24 21:45 Resp 16 07/31/24 21:45 BP 168/66 H 07/31/24 21:45 Pulse Ox 93 07/31/24 21:45 O2 Del Method Room Air 07/31/24 21:45 BMI result Body Mass Index 43.1 Appearance: Alert. Oriented X3. No acute distress. Eyes: Inflamed conjunctiva of right eye no foreign body seen fluorescein test negative IUP right eye 31 left eye 36 ENT: Pharynx normal. Oral Mucosa moist Neck: Normal inspection. Neck supple. CVS: Normal heart rate and rhythm. Pulses normal. Respiratory: No respiratory distress. Equal air entry bilateral, no wheezing/rales/rhonchi Abdomen: Soft and nontender. Bowel sounds are present, no mass palpable, no CVA tenderness Skin: Skin warm and dry. Normal skin color. Normal skin turgor. Extremities: No lower extremity edema. No calf tenderness Neuro: Oriented X 3. Medications Administered Discontinued Medications Generic Name Dose Route Start Last Admin Trade Name Freq PRN Reason Stop Dose Admin Fluorescein Sodium 1 strip 07/31/24 20:59 07/31/24 21:14 Fluorescein Sodium Strip EYE-LEFT 07/31/24 21:00 1 strip ONCE ONE Administration Tobramycin Sulfate 2 drop 07/31/24 21:01 07/31/24 21:14 Tobramycin Sulfate 0.3% Danielle Op 5 Ml Btl EYE-LEFT 07/31/24 21:02 2 drop ONCE ONE Administration Discharge Plan Discharge Clinical Impression: Glaucoma, Foreign body in eye Patient Disposition: Home, Self-Care Instructions: Glaucoma (ED), Eye Foreign Body (ED) Additional Instructions: Need likely you had a foreign body which Was removed while flushing your eyes Your IOP of right eye was 31 and left was 36 follow up with your [employer] Use tobramycin eye drops as provided 1-2 drops in right eye until better Prescriptions: No Action latanoprost 0.005 % drops 1 drp ophthalmic (eye) BEDTIME carvedilol 25 mg tablet 25 mg PO BID ropinirole 1 mg tablet 1 mg PO DAILY trazodone 100 mg tablet 250 mg PO BEDTIME amlodipine 10 mg tablet 10 mg PO DAILY levothyroxine 50 mcg tablet 50 mcg PO MOTUWETHFRSA@0600 loratadine 10 mg tablet 10 mg PO DAILY dorzolamide 2 % drops 1 drp ophthalmic (eye) BID rosuvastatin 40 mg tablet 40 mg PO BEDTIME bupropion HCl 300 mg tablet extended release 24 hr 300 mg PO DAILY bupropion HCl 150 mg tablet extended release 24 hr 150 mg PO DAILY fenofibrate nanocrystallized 145 mg tablet 145 mg PO DAILY ferrous gluconate 324 mg (38 mg iron) tablet 324 mg PO BID Mounjaro 7.5 mg/0.5 mL pen injector 7.5 mg subcut MO metformin 500 mg tablet extended release 24 hr 500 mg PO BID sertraline 100 mg tablet 200 mg PO DAILY montelukast 10 mg tablet 10 mg PO DAILY ropinirole 1 mg tablet 2 mg PO BEDTIME levothyroxine 50 mcg tablet 100 mcg PO PIERCE gabapentin 300 mg capsule 900 mg PO BEDTIME lutein 10 mg Tablet 10 mg PO DAILY Rx Instructions: give with meal/snack cyanocobalamin (vitamin B-12) 50 mcg Tablet 50 mcg PO DAILY ascorbic acid (vitamin C) [Vitamin C] 500 mg Tablet 500 mg PO DAILY cholecalciferol (vitamin D3) 25 mcg (1,000 unit) Tablet 25 mcg PO DAILY omega 4-iod-inm-fish oil [Fish Oil] 60-90-500 mg Capsule 1 cap PO DAILY cefuroxime axetil 500 mg tablet 500 mg PO BID Qty: 10 0RF Interventions: ED Discharge Assessment Last Done: 07/31/24 21:45 Discharge Date/Time: 07/31/24 21:46 Print Language: Swedish
[2024-07-31 21:06] VITALS: BP 168/66; PULSE 63; RESP 16; TEMP 37.1; O2SAT 93
[2024-07-31] MEDS: Fluorescein Sodium STRIP 1 STRIP EYE-LEFT (21:14)
[2024-07-31] MEDS: Tobramycin Sulfate 0.3% Sol Op 5 ML BTL 2 DROP EYE-LEFT (21:14)
[2024-07-31 21:45] VITALS: BP 168/66; PULSE 63; RESP 16; TEMP 37.1; O2SAT 93
== END 2024-07-31 21:46 | disposition home or self-care (01) ==
PROVIDERS: Emergency Provider Internal Medicine; PCP Family Medicine
DX: T15.91XA Foreign body on external eye, part unspecified, right eye, initial encounter (principal); H40.9 Unspecified glaucoma
CPT/HCPCS: 99283; 99284

== ENCOUNTER 2024-09-03 14:37 | Emergency (ER) | payer OTHER, SELFPAY ==
--- NOTE | ~2024-09-03 | CT_ITS ---
CLINICAL HISTORY: AMS CT head without contrast Comparison: None Findings: No intra-axial mass, midline shift, hydrocephalus, or acute hemorrhage. Mild scattered nonspecific white matter hypodensity. Likely chronic small vessel ischemic disease. The visualized paranasal sinuses and mastoid air cells are normal. The orbits are within normal limits. There is no acute fracture. IMPRESSION: 1. No acute intracranial findings. This document has been electronically signed by: Jaison Hermosillo MD on 09/03/2024 21:49:45
--- NOTE | ~2024-09-03 | CT_ITS ---
CLINICAL HISTORY: dyspnea, weakness, confusion, chest pain L side CT angiography chest with contrast. 3D Postprocessing. Comparison: CT/SR - CT ABDOMEN PELVIS WO IV CON - 01/05/24 00:54 EDT Findings: Heart size at the upper limits. No pericardial effusion. The thoracic aorta is normal caliber. Enlarged pulmonary artery. This can be seen with pulmonary artery hypertension. Left thyroid mildly heterogeneous. Left inferior thyroid nodule proximally 1.9 cm. Right thyroidectomy. No consolidation or effusion. Benign left adrenal nodule 1.9 cm image 137, and 2.9 cm image 127. Probable cyst left superior kidney 2.4 cm image 134. Gastric sleeve. Cholecystectomy. No acute fractures. IMPRESSION: 1. No acute pulmonary embolus. 2. Left inferior thyroid nodule. Consider nonemergent ultrasound characterization. 3. Benign left adrenal adenomas x2. This document has been electronically signed by: Jaison Hermosillo MD on 09/03/2024 21:54:35
--- NOTE | ~2024-09-03 | XR_ITS ---
EXAMINATION: XR CHEST CLINICAL INFORMATION: chest pain COMPARISON: June 10, 2024. TECHNIQUE: 2 views of the chest were obtained. FINDINGS: Patchy opacities in the right perihilar region. No pleural effusion or pneumothorax. Cardiomediastinal silhouette size is normal. Calcified plaque thoracic aortic arch. Multilevel thoracic and upper lumbar spondylosis. S-shaped curvature of the thoracolumbar spine. Patient's large body habitus/obesity. Vascular clips right upper quadrant abdomen and likely cholecystectomy. XR/XR chest 2V IMPRESSION: Questionable acute small airway inflammatory process versus subtle airspace disease right middle lung lobe. Electronically signed by: Bernard Mills MD 09/03/2024 03:25 PM EDT
--- NOTE | 2024-09-03 14:39 | ECG_ITS ---
Test Reason : chest pain Blood Pressure : */* mmHG Vent. Rate : 70 BPM Atrial Rate : 70 BPM P-R Int : 170 ms QRS Dur : 106 ms QT Int : 432 ms P-R-T Axes : 45 -23 32 degrees QTcB Int : 466 ms Normal sinus rhythm Minimal voltage criteria for LVH, may be normal variant ( Reggie product ) Borderline ECG When compared with ECG of 10-Jun-2024 19:38, No significant change was found Referred By: Chinyere Hobbs Electronically Signed By: Nick Downey
--- NOTE | 2024-09-03 14:55 | ED_ITS ---
HPI - General Adult General Chief complaint: General Medical Stated complaint: chest thightness diff breathing confusion Time Seen by Provider: 09/03/24 18:40 Source: patient and old records reviewed Mode of arrival: ambulatory Limitations: no limitations History of Present Illness ED Provider: CHERRI MAY narrative: 69 yo female with PMH of prior TIMOTHY, BRENNAN, renal failure, pyelonephritis, hypothyroidism here with c/o having a recent flu like illness a month ago but then developed for the past week has been confused, lethargic, increase in redness to right leg, dyspnea on exertion and at night has to lay on the couch, cough, bilateral low back pain. She feels tired and weak. She feels off balance as well and has a headache - she had R TKR in the fall and was doing well but is now back to using her walker. No recent travel, sick contacts or exposures. She just feels off. She has no appetite. complaint: lethargy Onset (ago): week(s) (1) Location: right and lower extremity Radiation: non-radiation Severity: mild Quality: aching Pain Consistency: constant Relieving factors: none Exacerbating factors: movement Associated symptoms: headaches, loss of appetite, malaise and shortness of breath Treatments prior to arrival: none Related Data Home Medications ?Medication ?Instructions ?Recorded ?Confirmed amlodipine 10 mg tablet 10 mg PO DAILY 06/08/23 11/21/23 bupropion HCl 150 mg 24 hr tablet, 150 mg PO DAILY 06/08/23 11/21/23 extended release bupropion HCl 300 mg 24 hr tablet, 300 mg PO DAILY 06/08/23 11/21/23 extended release carvedilol 25 mg tablet 25 mg PO BID 06/08/23 11/21/23 dorzolamide 2 % eye drops 1 drp ophthalmic (eye) BID 06/08/23 11/21/23 fenofibrate nanocrystallized 145 145 mg PO DAILY 06/08/23 11/21/23 mg tablet ferrous gluconate 324 mg (38 mg 324 mg PO BID 06/08/23 11/21/23 iron) tablet latanoprost 0.005 % eye drops 1 drp ophthalmic (eye) BEDTIME 06/08/23 11/21/23 levothyroxine 50 mcg tablet 50 mcg PO MOTUWETHFRSA@0600 06/08/23 11/21/23 loratadine 10 mg tablet 10 mg PO DAILY 06/08/23 11/21/23 metformin 500 mg tablet,extended 500 mg PO BID 06/08/23 11/21/23 release 24 hr montelukast 10 mg tablet 10 mg PO DAILY 06/08/23 11/21/23 ropinirole 1 mg tablet 1 mg PO DAILY 06/08/23 11/21/23 rosuvastatin 40 mg tablet 40 mg PO BEDTIME 06/08/23 11/21/23 sertraline 100 mg tablet 200 mg PO DAILY 06/08/23 11/21/23 tirzepatide 7.5 mg/0.5 mL 7.5 mg subcut MO 06/08/23 11/21/23 subcutaneous pen injector (Nadya) trazodone 100 mg tablet 250 mg PO BEDTIME 06/08/23 11/21/23 gabapentin 300 mg capsule 900 mg PO BEDTIME 06/09/23 11/21/23 levothyroxine 50 mcg tablet 100 mcg PO PIERCE 06/09/23 11/21/23 lutein 10 mg tablet 10 mg PO DAILY 06/09/23 11/21/23 ropinirole 1 mg tablet 2 mg PO BEDTIME 06/09/23 11/21/23 ascorbic acid (vitamin C) 500 mg 500 mg PO DAILY 11/21/23 11/21/23 tablet (Vitamin C) cholecalciferol (vitamin D3) 25 25 mcg PO DAILY 11/21/23 11/21/23 mcg (1,000 unit) tablet cyanocobalamin (vitamin B-12) 50 50 mcg PO DAILY 11/21/23 11/21/23 mcg tablet omega 5-zbz-xob-fish oil 60 mg-90 1 cap PO DAILY 11/21/23 11/21/23 mg-500 mg capsule (Fish Oil) Previous Rx's ?Medication ?Instructions ?Recorded cefuroxime axetil 500 mg tablet 500 mg PO BID #10 tabs 11/23/23 amoxicillin 875 mg-potassium 1 tab PO BID #14 tabs 09/03/24 clavulanate 125 mg tablet doxycycline hyclate 100 mg capsule 100 mg PO BID 7 days #14 caps 09/03/24 Allergies Allergy/AdvReac Type Severity Reaction Status Date / Time Sulfa (Sulfonamide Allergy Unknown HIVES Verified 09/03/24 14:58 Antibiotics) [SULFA (SULFONAMIDE ANTIBIOTICS)] Review of Systems 2 Review of Systems: Constitutional : No Fever, No Chills ENT/Mouth : No sore throat, No Rhinorrhea, No Swallowing Difficulty Eyes: No Eye Pain, No Swelling, No Redness Cardiovascular : No Chest Pain, positive SOB, pos Orthopnea, no Edema Respiratory : No Cough, No Sputum, No Wheezing, positive dyspnea Gastrointestinal : No Nausea, No Vomiting, No Diarrhea, No abdominal Pain, No Hematochezia, No Melena Genitourinary : No Dysuria, pos Urinary Frequency, No Hematuria Musculoskeletal : No joint pain, No Myalgias, pos back pain Skin : No Skin Lesions, No rash Neuro : No Weakness, No Numbness, No Dizziness, No Headache All other systems reviewed and are negative [facility] Past Medical History Attestation statement: The following information was validated with the patient. Source: old records reviewed Medical History Hypothyroidism Type 2 diabetes mellitus Obstructive sleep apnea on CPAP Hyperlipidemia Essential hypertension Morbid obesity Surgical History Hx of cholecystectomy Social History Social History Household Members: Spouse Housing: House Do you presently have visiting nurse or other home services: No Alcohol intake: current Alcohol intake frequency: holidays/special occasions only Alcohol type: hard liquor Patient Tobacco Use Status: Never used Tobacco Substance Use Type: Marijuana Advance Directives: No Advance Directives Information Provided: No service: No Physical Exam ED Vital Signs: Vital Signs - 24 hr 09/03/24 14:56 09/03/24 19:57 Temperature 97.9 F Pulse Rate 68 88 Respiratory Rate 18 20 Blood Pressure 148/52 H Pulse Oximetry 95 Oxygen Delivery Method Room Air BMI result Body Mass Index 43.5 Appearance: Alert. Oriented X3. No acute distress. Eyes: Pupils equal, round and reactive to light. ENT: Pharynx normal. Neck: Normal inspection. Neck supple. CVS: Normal heart rate and rhythm. Pulses normal. Respiratory: No respiratory distress. Breath sounds mild exp wheezes Abdomen: Soft and nontender. Skin: Skin warm and dry. Normal skin color. Normal skin turgor. Extremities: No lower extremity edema. R leg rash red and lacy hot to touch on lower leg not circumferential Neuro: Oriented X 3. No motor deficit. No sensory deficit. CN2-12 intact Course Course Course Narrative: RME performed by Chinyere Hobbs PA-C. Patient is a 69 year old assigned female at presenting to the emergency department with chest tightness. Patient states that she is having chest tightness. Detailed physical exam and review of systems are deferred to the system auditor. EKG, labs, imaging, and swabs ordered. Patient placed back in the waiting room pending room availability and results. Medications Administered Discontinued Medications Generic Name Dose Route Start Last Admin Trade Name Freq PRN Reason Stop Dose Admin Albuterol Sulfate 2.5 mg/ 0 mg 09/03/24 19:48 09/03/24 20:14 Albuterol/Ipratropium 3 ml INHALE 09/03/24 19:49 1 dose ONCE ONE Administration Piperacillin Sod/Tazobactam 50 mls @ 100 mls/hr 09/03/24 19:08 09/03/24 19:52 Sod 3.375 gm/ Sodium Chloride IV 09/03/24 19:37 100 mls/hr ONCE ONE Administration Iohexol 85 ml 09/03/24 21:06 09/03/24 21:07 Iohexol 350 Mg/Ml 100 Ml Infus..Btl IV 09/03/24 21:07 85 ml ONCE ONE Administration Medical Decision Making Medical Decision Making [facility] Narrative: 69 yo female with PMH of prior TIMOTHY, BRENNAN, renal failure, pyelonephritis, hypothyroidism here with c/o brain fog, recent flu illness she has never recovered she has many complaints she is neuro intact on exam at this time I am going to obtain labs, start on IV zosyn for her cellulitis, obtain CT scan of chest for PE, effusion, pneumonia as well as CT head given confusion and one week of gait changes. Wide differential including infectious, metabolic, neurologic Differential Diagnosis Differential Diagnoses: The differential diagnosis associated with the presentation includes TIMOTHY, stroke/mass, UTI, cellulitis, pneumonia Admission/Observation Consideration of admission/observation: Escalation of care including admission/observation considered offered admission her and her decline stable for DC at this time Lab Data [facility] Lab Attestation statement: I reviewed the patient's lab results. 09/03/24 15:33 09/03/24 15:33 Labs: Lab Results 09/03/24 09/03/24 09/03/24 Range/Units 15:33 17:36 19:30 WBC 6.6 (4.8-10.8) X10*3/uL RBC 4.48 (4.20-5.50) X10*6/uL Hgb 12.0 (12.0-16.0) g/dl Hct 36.1 L (37.0-47.0) % MCV 80.6 (80.0-98.0) fL MCH 26.8 L (27.0-33.0) pg MCHC 33.2 (31.0-35.0) g/dl RDW 14.6 (11.0-16.0) % Plt Count 227 D (160-400) X10*3/uL MPV 11.0 (9.4-12.3) fL Immature Gran % (Auto) 1.2 H (0.0-0.4) % Neut % (Auto) 63.1 (45-73) % Lymph % (Auto) 20.3 (20-40) % Preston % (Auto) 8.9 (2-11) % Eos % (Auto) 5.7 H (0-4) % Baso % (Auto) 0.8 (0-2) % Lymph # (Auto) 1.4 (1.2-4.9) X10*3/uL Preston # (Auto) 0.6 (0.1-1.2) X10*3/uL Eos # (Auto) 0.4 (0.0-0.4) X10*3/uL Baso # (Auto) 0.1 (0.0-0.2) X10*3/uL Abs Immat Gran (auto) 0.08 H (0.00-0.03) X10*3/uL Absolute Neuts (auto) 4.2 (2.0-8.3) x10*3/uL Absolute Nucleated RBC 0.000 (0.0-0.012) X10*3/uL Nucleated RBC % (auto) 0.0 (0.0-0.2) /100WBC ESR 49 H (0-20) MM/HR PT 11.1 (10.9-12.4) SEC INR 1.0 (0.9-1.1) VBG pH (7.32-7.43) VBG pCO2 mmHg VBG pO2 mmHg VBG HCO3 (22-26) mmol/L VBG O2 Saturation % VBG Base Excess mmol/L Sodium 142 (135-145) mmol/L Potassium 4.2 (3.3-5.1) mmol/L Chloride 108 (96-108) mmol/L Carbon Dioxide 23 (22-29) mmol/L Anion Gap 15 (12-20) BUN 26 H (9-16) mg/dL Creatinine 0.84 (0.5-1.4) mg/dL Estim Creat Clear Calc 81.3 Estimated GFR > 60 Random Glucose 74 (60-115) mg/dL Lactic Acid 1.4 (0.5-2.0) mmol/L Calcium 10.4 H D (8.4-10.2) mg/dL Magnesium 1.8 (1.6-2.6) mg/dL Total Bilirubin 0.3 (0.0-1.0) mg/dL AST 29 (5-31) U/L ALT 22 (0-31) U/L Alkaline Phosphatase 68 (39-117) U/L Ammonia (13-55) umol/L Total Creatine Kinase 31 (26-140) U/L Troponin I High Sens < 2.7 (<3.5-17.0) ng/L C-Reactive Protein 3.62 H (< or = 0.50) mg/dL B-Natriuretic Peptide < 10 (<100) pg/mL Total Protein 7.3 (6.5-8.0) g/dL Albumin 4.0 (3.5-5.0) g/dL TSH (0.32-4.0) uIU/mL Urine Color Dark Yellow Urine Appearance Clear Urine pH 5.5 (5.0-9.0) Ur Specific [place] 1.020 (1.005-1.025) Urine Protein Negative (Neg-Trace) mg/dL Urine Glucose (UA) Negative (Negative) mg/dL Urine Ketones Negative (Negative) mg/dL Urine Blood Negative (Negative) Urine Nitrite Negative (Negative) Ur Leukocyte Esterase Moderate (2+) H (Negative) Urine RBC 0-2 (0-2) /HPF Urine WBC 21-50 H (0-5) /HPF Ur Squamous Epith Cells 0-2 (0-2) /HPF Urine Bacteria None Seen (None Seen) Hyaline Casts 0-2 (0-2) /LPF Influenza Type A (PCR) NEGATIVE (Negative) Influenza Type B (PCR) NEGATIVE (Negative) RSV RNA Qual (PCR) NEGATIVE (Negative) SARS-CoV-2 RNA (RT-PCR) NEGATIVE (Negative) 09/03/24 09/03/24 Range/Units 19:31 19:41 WBC (4.8-10.8) X10*3/uL RBC (4.20-5.50) X10*6/uL Hgb (12.0-16.0) g/dl Hct (37.0-47.0) % MCV (80.0-98.0) fL MCH (27.0-33.0) pg MCHC (31.0-35.0) g/dl RDW (11.0-16.0) % Plt Count (160-400) X10*3/uL MPV (9.4-12.3) fL Immature Gran % (Auto) (0.0-0.4) % Neut % (Auto) (45-73) % Lymph % (Auto) (20-40) % Preston % (Auto) (2-11) % Eos % (Auto) (0-4) % Baso % (Auto) (0-2) % Lymph # (Auto) (1.2-4.9) X10*3/uL Preston # (Auto) (0.1-1.2) X10*3/uL Eos # (Auto) (0.0-0.4) X10*3/uL Baso # (Auto) (0.0-0.2) X10*3/uL Abs Immat Gran (auto) (0.00-0.03) X10*3/uL Absolute Neuts (auto) (2.0-8.3) x10*3/uL Absolute Nucleated RBC (0.0-0.012) X10*3/uL Nucleated RBC % (auto) (0.0-0.2) /100WBC ESR (0-20) MM/HR PT (10.9-12.4) SEC INR (0.9-1.1) VBG pH 7.41 (7.32-7.43) VBG pCO2 41 mmHg VBG pO2 49 mmHg VBG HCO3 26 (22-26) mmol/L VBG O2 Saturation 76.0 % VBG Base Excess 1.7 mmol/L Sodium (135-145) mmol/L Potassium (3.3-5.1) mmol/L Chloride (96-108) mmol/L Carbon Dioxide (22-29) mmol/L Anion Gap (12-20) BUN (9-16) mg/dL Creatinine (0.5-1.4) mg/dL Estim Creat Clear Calc Estimated GFR Random Glucose (60-115) mg/dL Lactic Acid (0.5-2.0) mmol/L Calcium (8.4-10.2) mg/dL Magnesium (1.6-2.6) mg/dL Total Bilirubin (0.0-1.0) mg/dL AST (5-31) U/L ALT (0-31) U/L Alkaline Phosphatase (39-117) U/L Ammonia 52 (13-55) umol/L Total Creatine Kinase (26-140) U/L Troponin I High Sens (<3.5-17.0) ng/L C-Reactive Protein (< or = 0.50) mg/dL B-Natriuretic Peptide (<100) pg/mL Total Protein (6.5-8.0) g/dL Albumin (3.5-5.0) g/dL TSH 1.30 (0.32-4.0) uIU/mL Urine Color Urine Appearance Urine pH (5.0-9.0) Ur Specific [place] (1.005-1.025) Urine Protein (Neg-Trace) mg/dL Urine Glucose (UA) (Negative) mg/dL Urine Ketones (Negative) mg/dL Urine Blood (Negative) Urine Nitrite (Negative) Ur Leukocyte Esterase (Negative) Urine RBC (0-2) /HPF Urine WBC (0-5) /HPF Ur Squamous Epith Cells (0-2) /HPF Urine Bacteria (None Seen) Hyaline Casts (0-2) /LPF Influenza Type A (PCR) (Negative) Influenza Type B (PCR) (Negative) RSV RNA Qual (PCR) (Negative) SARS-CoV-2 RNA (RT-PCR) (Negative) Independent Interpretation I performed an independent interpretation of an: EKG, Plain X-Ray (normal ) and CT Scan (no PE) Radiology Impression Discussion of test interpretation with radiology: I have reviewed the radiologist's reading. Independent Historian Clinical information obtained from an independent historian. History obtained from or confirmed by: Spouse External Record Review External record reviewed: Inpatient record Prescription Management I considered prescription management with: Antibiotic Discharge Plan Discharge Clinical Impression: Acute UTI Cellulitis Qualifiers: Site of cellulitis: extremity Site of cellulitis of extremity: lower extremity Laterality: right Qualified Code(s): L03.115 - Cellulitis of right lower limb Patient Disposition: Home, Self-Care Instructions: Urinary Tract Infection in Women (ED), Cellulitis (ED) Additional Instructions: kidney function normal labs reassuring elevation in inflammatory markers goes along with infection. thyroid studies normal EKG, troponin, BNP which is CHF test are all normal start antibiotics in the morning return for confusion, weakness, dizziness, increasing signs of infection in leg or any other concerns IMPRESSION: 1. No acute pulmonary embolus. 2. Left inferior thyroid nodule. Consider nonemergent ultrasound characterization. 3. Benign left adrenal adenomas x2. Findings: CT head No intra-axial mass, midline shift, hydrocephalus, or acute hemorrhage. Mild scattered nonspecific white matter hypodensity. Likely chronic small vessel ischemic disease. The visualized paranasal sinuses and mastoid air cells are normal. The orbits are within normal limits. There is no acute fracture. IMPRESSION: 1. No acute intracranial findings. On amoxicillin-clavulanate, softer bowel movements are to be expected. Call your provider if you move your bowels more than 4 times a day, your bowel movements are almost all liquid, or you get a rash.? On doxycycline, do not take pills immediately before going to bed and swallow pills with plenty of water. Avoid direct sunlight, iron, antacids, and Pepto Bismol. Call your provider if you develop new ringing in your ears, new problems hearing, dizziness, difficulty swallowing, rash, abdominal discomfort, nausea, or diarrhea.? Prescriptions: New doxycycline hyclate 100 mg capsule 100 mg PO BID 7 Days Qty: 14 0RF amoxicillin-pot clavulanate 875-125 mg tablet 1 tab PO BID Qty: 14 0RF No Action latanoprost 0.005 % drops 1 drp ophthalmic (eye) BEDTIME carvedilol 25 mg tablet 25 mg PO BID ropinirole 1 mg tablet 1 mg PO DAILY trazodone 100 mg tablet 250 mg PO BEDTIME amlodipine 10 mg tablet 10 mg PO DAILY levothyroxine 50 mcg tablet 50 mcg PO MOTUWETHFRSA@0600 loratadine 10 mg tablet 10 mg PO DAILY dorzolamide 2 % drops 1 drp ophthalmic (eye) BID rosuvastatin 40 mg tablet 40 mg PO BEDTIME bupropion HCl 300 mg tablet extended release 24 hr 300 mg PO DAILY bupropion HCl 150 mg tablet extended release 24 hr 150 mg PO DAILY fenofibrate nanocrystallized 145 mg tablet 145 mg PO DAILY ferrous gluconate 324 mg (38 mg iron) tablet 324 mg PO BID Mounjaro 7.5 mg/0.5 mL pen injector 7.5 mg subcut MO metformin 500 mg tablet extended release 24 hr 500 mg PO BID sertraline 100 mg tablet 200 mg PO DAILY montelukast 10 mg tablet 10 mg PO DAILY ropinirole 1 mg tablet 2 mg PO BEDTIME levothyroxine 50 mcg tablet 100 mcg PO PIERCE gabapentin 300 mg capsule 900 mg PO BEDTIME lutein 10 mg Tablet 10 mg PO DAILY Rx Instructions: give with meal/snack cyanocobalamin (vitamin B-12) 50 mcg Tablet 50 mcg PO DAILY ascorbic acid (vitamin C) [Vitamin C] 500 mg Tablet 500 mg PO DAILY cholecalciferol (vitamin D3) 25 mcg (1,000 unit) Tablet 25 mcg PO DAILY omega 9-fvb-vhg-fish oil [Fish Oil] 60-90-500 mg Capsule 1 cap PO DAILY cefuroxime axetil 500 mg tablet 500 mg PO BID Qty: 10 0RF Print Language: Hong Konger
[2024-09-03 14:56] VITALS: BP 148/52; PULSE 68; RESP 18; TEMP 36.6; O2SAT 95; BMI 43.5
[2024-09-03 16:03] LABS: MANUAL DIFF FLAG NO
[2024-09-03 16:04] LABS: Basophils Absolute Auto 0.1 X10*3/uL (0.0-0.2); Basophils Percent Auto 0.8 % (0-2); Eosinophils Absolute Auto 0.4 X10*3/uL (0.0-0.4); Eosinophils Percent Auto 5.7 % (0-4); Hematocrit 36.1 % (37.0-47.0); Imm Gran Abs Auto 0.08 X10*3/uL (0.00-0.03); Imm Gran Pct Auto 1.2 % (0.0-0.4); Lymphocytes Absolute Auto 1.4 X10*3/uL (1.2-4.9); Lymphocytes Percent Auto 20.3 % (20-40); Mean Corpuscular HGB Conc 33.2 g/dl (31.0-35.0); Mean Corpuscular Hemoglobin 26.8 pg (27.0-33.0); Mean Corpuscular Volume 80.6 fL (80.0-98.0); Monocytes Absolute Auto 0.6 X10*3/uL (0.1-1.2); Monocytes Percent Auto 8.9 % (2-11); Neutrophils Absolute Auto 4.2 x10*3/uL (2.0-8.3); Neutrophils Percent Auto 63.1 % (45-73); Platelet Count 227 X10*3/uL (160-400); Red Blood Count 4.48 X10*6/uL (4.20-5.50); Red Cell Distribution Width 14.6 % (11.0-16.0); White Blood Count 6.6 X10*3/uL (4.8-10.8)
[2024-09-03 16:12] LABS: Prothrombin Time 11.1 SEC (10.9-12.4)
[2024-09-03 16:28] LABS: B Type Natriuretic Peptide < 10 pg/mL (<100)
[2024-09-03 16:40] LABS: Alanine Aminotransferase 22 U/L (0-31); Alkaline Phosphatase 68 U/L (39-117); Anion Gap 15 (12-20); Aspartate Amino Transferase 29 U/L (5-31); Bilirubin Total 0.3 mg/dL (0.0-1.0); Blood Urea Nitrogen 26 mg/dL (9-16); Calcium 10.4 mg/dL (8.4-10.2); Carbon Dioxide 23 mmol/L (22-29); Chloride 108 mmol/L (96-108); Creatinine Clr Calc Pharmacy 81.3; Estimated Glomerular Filt Rate > 60; Glucose Random 74 mg/dL (60-115); Magnesium 1.8 mg/dL (1.6-2.6); Potassium 4.2 mmol/L (3.3-5.1); Sodium 142 mmol/L (135-145); Total Protein 7.3 g/dL (6.5-8.0); Troponin-I High Sensitivity < 2.7 ng/L (<3.5-17.0)
[2024-09-03 16:42] LABS: Influenza A PCR NEGATIVE (Negative); Influenza B PCR NEGATIVE (Negative); Resp Syncy Virus RNA Qual PCR NEGATIVE (Negative); SARS COV2 PCR INHOUSE NEGATIVE (Negative)
[2024-09-03 17:42] LABS: Appearance Urine Clear; Color Urine Dark Yellow; Glucose Urine UA Negative (Negative); Leukocyte Esterase Urine Moderate (2+) (Negative); Nitrite Urine Negative (Negative); PH 5.5 (5.0-9.0); UMIC TRIGGER UACC YES; Urine Blood Negative (Negative); Urine Ketones Negative (Negative); Urine Protein Negative (Neg-Trace)
[2024-09-03 17:47] LABS: Bacteria Urine None Seen (None Seen); Hyaline Casts Urine 0-2 /LPF (0-2); RBC Urine 0-2 /HPF (0-2); Squamous Epithelial Cell Urine 0-2 /HPF (0-2); UACC Culture Trigger YES; WBC Urine 21-50 /HPF (0-5)
[2024-09-03 19:30] LABS: C Reactive Protein 3.62 mg/dL (< or = 0.50)
[2024-09-03 19:43] LABS: Ammonia 52 umol/L (13-55)
[2024-09-03 19:46] LABS: VBG Base Excess 1.7 mmol/L; VBG HCO3 26 mmol/L (22-26); VBG pCO2 41 mmHg; VBG pH 7.41 (7.32-7.43); VBG pO2 49 mmHg
[2024-09-03 19:47] LABS: Venous Blood Gas Refer to POC result
[2024-09-03 19:50] LABS: Lactic Acid 1.4 mmol/L (0.5-2.0)
[2024-09-03 19:51] LABS: Erythrocyte Sedimentation Rate 49 MM/HR (0-20)
[2024-09-03] MEDS: Piperacillin Sodium/Tazobactam 3.375 GM in 0.9 % Sodium Chloride 50 ML IV (19:52)
[2024-09-03 19:57] VITALS: PULSE 88; RESP 20; O2SAT 94
[2024-09-03] MEDS: Albuterol Sulfate 2.5 MG, Albuterol/Iprat 2.5/0.5MG 3 ML 3 ML INHALE (20:14)
[2024-09-03] MEDS: iohexoL 350 MG/ML 100 ML INFUS..BTL 85 ML IV (21:07)
[2024-09-03 22:37] VITALS: BP 148/52; PULSE 88; RESP 20; TEMP 36.6; O2SAT 95
== END 2024-09-03 22:38 | disposition home or self-care (01) ==
PROVIDERS: Physician Assistant Medical; Emergency Provider Emergency Medicine; PCP Family Medicine
DX: L03.115 Cellulitis of right lower limb (principal); N39.0 Urinary tract infection, site not specified; R07.89 Other chest pain; R06.02 Shortness of breath; R51.9 Headache, unspecified; Z79.899 Other long term (current) drug therapy; Z03.818 Encounter for observation for suspected exposure to other biological agents ruled out
CPT/HCPCS: 0241U; 36415; 70450; 71046; 71275; 80053; 81001; 82140; 82550; 82803; 83605; 83735; 83880; 84443; 84484; 85025; 85610; 85652; 86140; 87040; 87086; 93005; 94640; 96365; 99284; J2543; Q9967

== ENCOUNTER → 2024-09-03 14:39 | Outpatient (BNV) | payer OTHER, SELFPAY | PROVIDERS: Emergency Provider Emergency Medicine; PCP Family Medicine; Visit Provider Internal Medicine Cardiovascular Disease | DX: R07.9 Chest pain, unspecified (principal) | CPT/HCPCS: 93010 ==

== ENCOUNTER → 2024-09-03 14:58 | Outpatient (BNV) | payer OTHER, SELFPAY | PROVIDERS: PCP Family Medicine; Visit Provider Radiology Diagnostic Radiology | DX: E04.1 Nontoxic single thyroid nodule (principal); D35.02 Benign neoplasm of left adrenal gland; R41.82 Altered mental status, unspecified; R07.9 Chest pain, unspecified | CPT/HCPCS: 70450; 71046; 71275 ==